=== PATIENT | male | born 1950 | race Caucasian/White ===

== ENCOUNTER → 2016-08-04 | Outpatient (CLI) | payer MEDICARE, BC | LOC: MW.CHFP 08:00 | PROVIDERS: ATTEND Student in an Organized Health Care Education/Training Program | DX: Z51.81 Encounter for therapeutic drug level monitoring (principal); Z79.01 Long term (current) use of anticoagulants; I82.409 Acute embolism and thrombosis of unspecified deep veins of unspecified lower extremity | CPT/HCPCS: 85610; 99211 ==

== ENCOUNTER → 2016-08-20 | Outpatient (CLI) | payer MEDICARE, BC | LOC: MW.CHFP 08:00 | PROVIDERS: ATTEND Student in an Organized Health Care Education/Training Program | DX: Z51.81 Encounter for therapeutic drug level monitoring (principal); Z79.01 Long term (current) use of anticoagulants; I82.91 Chronic embolism and thrombosis of unspecified vein | CPT/HCPCS: 85610; 99211 ==

== ENCOUNTER → 2016-09-24 | Outpatient (CLI) | payer MEDICARE, BC | LOC: MW.CHFP 08:00 | PROVIDERS: ATTEND Student in an Organized Health Care Education/Training Program | DX: Z51.81 Encounter for therapeutic drug level monitoring (principal); Z79.01 Long term (current) use of anticoagulants; I82.409 Acute embolism and thrombosis of unspecified deep veins of unspecified lower extremity | CPT/HCPCS: 85610; 99211 ==

== ENCOUNTER → 2016-10-09 | Outpatient (CLI) | payer MEDICARE, BC | LOC: MW.CHIM 08:00 | PROVIDERS: ATTEND Internal Medicine | DX: N18.9 Chronic kidney disease, unspecified (principal); C85.10 Unspecified B-cell lymphoma, unspecified site; K21.9 Gastro-esophageal reflux disease without esophagitis | CPT/HCPCS: 99214 ==

== ENCOUNTER → 2016-10-22 | Outpatient (CLI) | payer MEDICARE, BC | LOC: MW.CHFP 08:00 | PROVIDERS: ATTEND Student in an Organized Health Care Education/Training Program | DX: Z51.81 Encounter for therapeutic drug level monitoring (principal); Z79.01 Long term (current) use of anticoagulants; I82.409 Acute embolism and thrombosis of unspecified deep veins of unspecified lower extremity | CPT/HCPCS: 85610; 99211 ==

== ENCOUNTER 2017-03-02 18:10 | Inpatient (IN) | payer MEDICARE, BC ==
[2017-03-02] MEDS ORDERED: Sodium Chloride 0.9% 2.5 ML Syringe FLUSH PRN (18:36)
[2017-03-02] MEDS ORDERED: Sodium Chloride 0.9% 10 ML Syringe FLUSH PRN (18:36)
[2017-03-02] MEDS ORDERED: Levofloxacin/Dextrose 5%-Water 500 MG in Premix Bag 1 BAG IV ONE (18:37)
--- NOTE | 2017-03-02 18:43 | EDM.PDOC ---
ED HPI GENERAL MEDICAL PROBLEM - General Chief Complaint: Respiratory Problem Stated Complaint: PNEUMONIA Time Seen by Provider: 03/02/17 18:23 - History of Present Illness INITIAL COMMENTS - FREE TEXT/NARRATIVE: HISTORY AND PHYSICAL: History of present illness: The patient is a 67-year-old male who was seen in our clinic earlier for several days to one week of cough occasionally productive of phlegm and generalized malaise. The patient was noted to be hypoxic in the clinic and was sent for a chest x-ray and was called at home to say that he needed to come back for admission. The patient thought he was going to be a direct admission but there was no information regarding that from his provider. He presents to the ER for evaluation and admission for his pneumonia. The patient denies any chest pain and no shortness of breath but says he feels well eyes malaise and generalized weakness. He did not note that he had a high fever at home and has had no abdominal pain vomiting or diarrhea. Patient has no pulmonary history and never smoked. 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 Review of systems: As per history of present illness and below otherwise all systems reviewed and negative. Past medical history: As per history of present illness and as reviewed below otherwise noncontributory. Surgical history: As per history of present illness and as reviewed below otherwise noncontributory. Social history: No reported history of drug or alcohol abuse. Family history: As per history of present illness and as reviewed below otherwise noncontributory. Physical exam: Gen.: Well-developed well-nourished man was not breathless on evaluation and his O2 sat on room air is noted by me. He overall looks drained but is nontoxic HEENT: Atraumatic, normocephalic, negative for conjunctival pallor or scleral icterus, mucous membranes moist, throat clear, neck supple, nontender, trachea midline. Lungs: Clear to auscultation except for the bases bilaterally with there are coarse breath sounds in the left base there is diminished air exchange and rhonchi and coarse breath sounds, there is no worker breathing, breath sounds equal bilaterally, chest nontender. Heart: S1S2, regular rate and rhythm no overt murmurs Abdomen: Soft, nondistended, nontender. NABS Skin: Normal turgor no evidence of any diaphoresis rashes or lesions seen overtly Genitourinary: Deferred. Rectal: Deferred. Extremities: Atraumatic, negative for cords or calf pain. Neurovascular unremarkable. No pedal edema Neuro: Awake, alert, oriented. Cranial nerves II through XII unremarkable. Cerebellum unremarkable. Motor and sensory unremarkable throughout. Exam nonfocal. Diagnostics: CBC CMP INR lactic acid blood cultures 2 Chest x-ray was performed as an outpatient from the clinic and revealed a left lower lobe pneumonia Therapeutics: Oxygen therapy, IV Levaquin and Zosyn 1830: Case was discussed with Dr. Ashby and Dr. Brennan, the latter of whom is in the ER seeing the patient with me. They were unaware of this patient as a direct admission but they accept him for admission now. They request the antibiotics as given above. They will follow up the blood testing and patient is aware of x-ray results and need for admission. Impression: Left lower lobe pneumonia Definitive disposition and diagnosis as appropriate pending reevaluation and review of above. - Related Data Allergies Allergy/AdvReac Type Severity Reaction Status Date / Time No Known Allergies Allergy Verified 03/02/17 18:20 Home Meds: Home Meds Acetaminophen [Pain Relief] 500 mg PO TID PRN 10/16/13 [History] Acyclovir 400 mg PO BID 10/16/13 [History] Magnesium Oxide 400 mg PO QID 10/16/13 [History] Mometasone Furoate [Nasonex [place]] 1 spray INH DAILY PRN 10/16/13 [History] Montelukast [Singulair] 10 mg PO DAILY 10/16/13 [History] Pregabalin [Lyrica] 200 mg PO BID 10/16/13 [History] Lenalidomide [Revlimid] 15 mg PO DAILY 05/26/14 [History] Omeprazole [priLOSEC OTC] 20 mg PO BEDTIME 05/26/14 [History] Warfarin [Coumadin] 5 mg PO DAILY 05/26/14 [History] Sodium Bicarbonate 325 mg PO BID 04/24/16 [History] Past Medical History HEENT History: Reports: Impaired Vision Respiratory History: Reports: Pneumonia, Recurrent Gastrointestinal History: Reports: GERD Immunologic History: Reports: Immunosuppression Oncologic (Cancer) History: Reports: Non-Hodgkin's Lymphoma - Past Surgical History Male Surgical History: Reports: Nephrectomy, Other (See Below) Other Male Surgeries/Procedures: Shunt for Dialysis to Left Arm Social & Family History - Family History Family Medical History: Noncontributory - Tobacco Use Smoking Status *Q: Never Smoker Second Hand Smoke Exposure: Yes - Caffeine Use Caffeine Use: Reports: Tea - Alcohol Use Days Per Week of Alcohol Use: 0 - Recreational Drug Use Recreational Drug Use: No ED ROS GENERAL - Review of Systems Review Of Systems: ROS reveals no pertinent complaints other than HPI. ED EXAM, GENERAL - Physical Exam Exam: See Below (see dictation) Course - Vital Signs Last Recorded V/S: Last Vital Signs Temp 36.8 C 03/02/17 18:16 Pulse 83 03/02/17 18:16 Resp 25 H 03/02/17 18:16 BP 130/62 03/02/17 18:16 Pulse Ox 87 L 03/02/17 18:16 - Orders/Labs/Meds Orders: Active Orders 24 hr Category Date Time Status Patient Status [ADT] Stat ADT 03/02/17 18:37 Ordered Oxygen Therapy, ED [RC] ASDIRECTED Care 03/02/17 18:35 Ordered CBC WITH AUTO DIFF [HEME] Stat Lab 03/02/17 18:36 Ordered COMPREHENSIVE METABOLIC PN,CMP [CHEM] Stat Lab 03/02/17 18:36 Ordered CULTURE BLOOD [BC] Stat Lab 03/02/17 18:36 Ordered CULTURE BLOOD [BC] Stat Lab 03/02/17 18:36 Ordered INR,PT,PROTHROMBIN TIME [COAG] Stat Lab 03/02/17 18:36 Ordered LACTIC ACID,WHOLE BLOOD [BG] Stat Lab 03/02/17 18:36 Ordered Levofloxacin/Dextrose 5%-Water [Levaquin in D5W 500 MG/ Med 03/02/17 18:37 Ordered 100 ML] 500 mg Premix Bag 1 bag IV ONETIME Piperacillin/Tazobactam [Piperacil-Tazobact] 3.375 gm Med 03/02/17 18:37 Ordered Sodium Chloride 0.9% [Normal Saline] 50 ml IV ONETIME Sodium Chloride 0.9% [Saline Flush] Med 03/02/17 18:36 Ordered 10 ml FLUSH ASDIRECTED PRN Sodium Chloride 0.9% [Saline Flush] Med 03/02/17 18:36 Ordered 2.5 ml FLUSH ASDIRECTED PRN Blood Culture x2 Reflex Set [OM.PC] Stat Oth 03/02/17 18:36 Ordered Saline Lock Insert [OM.PC] Stat Oth 03/02/17 18:35 Ordered Medication Orders Sodium Chloride (Saline Flush) 10 ml FLUSH ASDIRECTED PRN PRN Reason: Keep Vein Open Sodium Chloride (Saline Flush) 2.5 ml FLUSH ASDIRECTED PRN PRN Reason: Keep Vein Open Meds: Medications Generic Name Dose Route Start Last Admin Trade Name Freq PRN Reason Stop Dose Admin Sodium Chloride 10 ml 03/02/17 18:36 Saline Flush FLUSH ASDIRECTED PRN Keep Vein Open Sodium Chloride 2.5 ml 03/02/17 18:36 Saline Flush FLUSH ASDIRECTED PRN Keep Vein Open Departure - Departure Time of Disposition: 18:43 Disposition: Admitted As Inpatient 64 Condition: Good Clinical Impression: Pneumonia Qualifiers: Pneumonia type: due to unspecified organism Laterality: left Lung location: lower lobe of lung Qualified Code(s): J18.1 - Lobar pneumonia, unspecified organism - Discharge Information - My Orders Last 24 Hours: My Active Orders 03/02/17 18:35 Oxygen Therapy, ED [RC] ASDIRECTED Saline Lock Insert [OM.PC] Stat 03/02/17 18:36 CBC WITH AUTO DIFF [HEME] Stat COMPREHENSIVE METABOLIC PN,CMP [CHEM] Stat CULTURE BLOOD [BC] Stat CULTURE BLOOD [BC] Stat INR,PT,PROTHROMBIN TIME [COAG] Stat LACTIC ACID,WHOLE BLOOD [BG] Stat Sodium Chloride 0.9% [Saline Flush] 10 ml FLUSH ASDIRECTED PRN Sodium Chloride 0.9% [Saline Flush] 2.5 ml FLUSH ASDIRECTED PRN Blood Culture x2 Reflex Set [OM.PC] Stat 03/02/17 18:37 Patient Status [ADT] Stat Levofloxacin/Dextrose 5%-Water [Levaquin in D5W 500 MG/100 ML] 500 mg Premix Bag 1 bag IV ONETIME Piperacillin/Tazobactam [Piperacil-Tazobact] 3.375 gm Sodium Chloride 0.9% [ Normal Saline] 50 ml IV ONETIME - Assessment/Plan Last 24 Hours: My Active Orders 03/02/17 18:35 Oxygen Therapy, ED [RC] ASDIRECTED Saline Lock Insert [OM.PC] Stat 03/02/17 18:36 CBC WITH AUTO DIFF [HEME] Stat COMPREHENSIVE METABOLIC PN,CMP [CHEM] Stat CULTURE BLOOD [BC] Stat CULTURE BLOOD [BC] Stat INR,PT,PROTHROMBIN TIME [COAG] Stat LACTIC ACID,WHOLE BLOOD [BG] Stat Sodium Chloride 0.9% [Saline Flush] 10 ml FLUSH ASDIRECTED PRN Sodium Chloride 0.9% [Saline Flush] 2.5 ml FLUSH ASDIRECTED PRN Blood Culture x2 Reflex Set [OM.PC] Stat 03/02/17 18:37 Patient Status [ADT] Stat Levofloxacin/Dextrose 5%-Water [Levaquin in D5W 500 MG/100 ML] 500 mg Premix Bag 1 bag IV ONETIME Piperacillin/Tazobactam [Piperacil-Tazobact] 3.375 gm Sodium Chloride 0.9% [ Normal Saline] 50 ml IV ONETIME
--- NOTE | 2017-03-02 19:44 | PCM.HP ---
H&P History of Present Illness - General Date of Service: 03/02/17 Admit Problem/Dx: Admission Diagnosis/Problem Admission Diagnosis/Problem Pneumonia Source of Information: Patient, Family - History of Present Illness Initial Comments - Free Text/Narative: 67 yo male with history of NHL, stem cell transplant, DVT on Coumadin, CKD and Immunocomprimised state secondary to Lenalidomide is admitted for CAP. is at bedside here in ED providing much of the history. For the past week patient has been experiencing fatigue, malaise, weakness, sob, productive cough, sore throat and sinus congestion. Symptoms progressively worsened. He had appointment with his PCP Dr. Acosta earlier today and was found to be hypoxic with O2 sat 83%. CXR revealed Left sided infiltrate. Patient was then transferred to ED for additional work-up. Patient denies any fever, lethargy, nausea, vomiting, diarrhea, oliguria, hematuria, tremors, swelling, chest pain, pleuritis or calf pain. He denies tobacco use and uses alcohol rarely. ED Course: -CBC, CMP, INR, Blood Cultures -Zosyn IV x1, Levaquin IV x1 - Related Data Allergies/Adverse Reactions: Allergies Allergy/AdvReac Type Severity Reaction Status Date / Time No Known Allergies Allergy Verified 03/02/17 18:20 Home Medications: Home Meds Acetaminophen [Pain Relief] 500 mg PO TID PRN 10/16/13 [History] Acyclovir 400 mg PO BID 10/16/13 [History] Magnesium Oxide 400 mg PO QID 10/16/13 [History] Mometasone Furoate [Nasonex [place]] 1 spray INH DAILY PRN 10/16/13 [History] Montelukast [Singulair] 10 mg PO DAILY 10/16/13 [History] Pregabalin [Lyrica] 200 mg PO BID 10/16/13 [History] Lenalidomide [Revlimid] 10 mg PO DAILY 05/26/14 [History] Omeprazole [priLOSEC OTC] 20 mg PO DAILY 05/26/14 [History] Warfarin [Coumadin] 5 mg PO ASDIRECTED 05/26/14 [History] Sodium Bicarbonate 325 mg PO ASDIRECTED 04/24/16 [History] Calcitriol 1 cap PO ASDIRECTED 03/02/17 [History] Cholecalciferol (Vitamin D3) [Vitamin D3] 03/02/17 [History] Fluticasone Propionate [Flonase] 1 spray NASBOTH BID PRN 03/02/17 [History] Loratadine 10 mg PO DAILY 03/02/17 [History] Past Medical History HEENT History: Reports: Impaired Vision Respiratory History: Reports: Pneumonia, Recurrent Gastrointestinal History: Reports: GERD Immunologic History: Reports: Immunosuppression Oncologic (Cancer) History: Reports: Non-Hodgkin's Lymphoma - Past Surgical History Male Surgical History: Reports: Nephrectomy, Other (See Below) Other Male Surgeries/Procedures: Shunt for Dialysis to Left Arm Social & Family History - Family History Family Medical History: Noncontributory - Tobacco Use Smoking Status *Q: Never Smoker Second Hand Smoke Exposure: Yes - Caffeine Use Caffeine Use: Reports: Tea - Alcohol Use Days Per Week of Alcohol Use: 0 - Recreational Drug Use Recreational Drug Use: No H&P Review of Systems - Review of Systems: Review Of Systems: See Below General: Reports: Malaise, Weakness, Fatigue. Denies: Fever, Chills, Night Sweats, Diaphoresis, Decreased Appetite HEENT: Reports: Sinus Congestion, Sore Throat Pulmonary: Reports: Shortness of Breath, Cough, Sputum. Denies: Hemoptysis Cardiovascular: Reports: Dyspnea on Exertion Gastrointestinal: Reports: No Symptoms Genitourinary: Reports: No Symptoms Musculoskeletal: Reports: No Symptoms Skin: Reports: No Symptoms Psychiatric: Reports: No Symptoms Neurological: Reports: No Symptoms Hematologic/Lymphatic: Reports: Anemia Exam - Exam Exam: See Below - Vital Signs Vital Signs: Last Vital Signs Temp 36.8 C 03/02/17 18:16 Pulse 83 03/02/17 18:16 Resp 25 H 03/02/17 18:16 BP 130/62 03/02/17 18:16 Pulse Ox 87 L 03/02/17 18:16 Weight: 90 kg - Exam Quality Assessment: Supplemental Oxygen General: Alert, Oriented, Cooperative HEENT: Conjunctiva Clear, EACs Clear, EOMI, Mucosa Moist & [place], Nares Patent, Normal Nasal Septum, Posterior Pharynx Clear, Pupils Equal, Pupils Reactive Neck: Supple, Trachea Midline, +2 Carotid Pulse wo Bruit Lungs: Decreased Breath Sounds (assymetric, diminished left lower lobe) Cardiovascular: Regular Rate, Regular Rhythm GI/Abdominal Exam: Normal Bowel Sounds, Soft, Non-Tender Extremities: Non-Tender, No Pedal Edema. No: Leg Pain Skin: Intact Neuro Extensive - Mental Status: Alert, Oriented x3 - Patient Data Lab Results Last 24 hrs: Laboratory Results - last 24 hr 03/02/17 03/02/17 03/02/17 Range/Units 19:16 19:16 19:16 WBC 1.47 L (4.0-11.0) K/uL RBC 2.30 L (4.50-5.90) M/uL Hgb 7.5 L (13.0-17.0) g/dL Hct 22.7 L (38.0-50.0) % MCV 98.7 H (80.0-98.0) fL MCH 32.6 H (27.0-32.0) pg MCHC 33.0 (31.0-37.0) g/dL RDW Std Deviation 59.4 (28.0-62.0) fl RDW Coeff of [place] 17 H (11.0-15.0) % Plt Count 88 L (150-400) K/uL MPV 13.10 H (7.40-12.00) fL Add Manual Diff YES Nucleated RBC % 0.0 /100WBC Nucleated RBCs # 0 K/uL INR 2.05 H (0.86-1.11) Lactate 0.6 (0.20-2.00) mmol/L Result Diagrams: 03/02/17 19:16 03/02/17 19:16 *Q Meaningful Use (ADM) - VTE *Q VTE Criteria *Q: - Stroke *Q Stroke Criteria *Q: - AMI *Q AMI Criteria *Q: Problem List Initiated/Reviewed/Updated: Yes Orders Last 24hrs: Active Orders 24 hr Category Date Time Status Implanted Port Access [RC] QSHIFT Care 03/02/17 18:44 Active Medication Orders Sodium Chloride (Saline Flush) 10 ml FLUSH ASDIRECTED PRN PRN Reason: Keep Vein Open Sodium Chloride (Saline Flush) 2.5 ml FLUSH ASDIRECTED PRN PRN Reason: Keep Vein Open Assessment/Plan Comment:: 67 yo male with history of NHL, stem cell transplant, DVT on Coumadin, CKD and Immunocomprimised state secondary to Lenalidomide is admitted for CAP & Hypoxia. CXR in clinic today revealed left sided infiltrate. ED workup revealed Pancytopenia with Hb 7.5, WBC 1470, ANC 790 & Platelet count 88k, Ck 4.6 & INR 2.05. Patient was given one dose each of Zosyn and Levaquin in ED. 1. CAP: continue Levaquin & Zosyn. start Vancomycin. obtain sputum cultures. f/ u blood cultures 2. Hypoxia: O2 via LFNC 3. Anemia: likely secondary to ACD. transfuse 2 units RBC. monitor Hb. 4. CKD: Current Ck of 4.6 is patients baseline. continue to monitor. 5. DVT: resume Coumadin once bleed is rule out. 6. Neutopenia: No fever therefore will just continue to monitor. 7. Thrombocytopenia: monitor.
[2017-03-02] MEDS ORDERED: Levofloxacin/Dextrose 5%-Water 750 MG in Premix Bag 1 BAG IV SCH ×2 (20:15→20:30)
[2017-03-02] MEDS ORDERED: Piperacillin/Tazobactam 3.375 GM in Sodium Chloride 0.9% 50 ML IV SCH (20:15)
[2017-03-02] MEDS ORDERED: Vancomycin 1.5 GM in Sodium Chloride 0.9% 500 ML IV ONE (22:00)
[2017-03-02] MEDS: Piperacillin/Tazobactam 3.375 GM in Sodium Chloride 0.9% 50 ML IV ONE ×2 (22:26→22:31)
[2017-03-02] MEDS ORDERED: Levofloxacin/Dextrose 5%-Water 50 ML IV ONE (22:30)
[2017-03-03] MEDS: Piperacillin/Tazobactam 2.25 GM in Sodium Chloride 0.9% 50 ML IV SCH ×3 (05:33→21:12)
--- NOTE | 2017-03-03 12:23 | PCM.PN ---
- General Info Date of Service: 03/03/17 Admission Dx/Problem (Free Text): Admission Diagnosis/Problem Admission Diagnosis/Problem Pneumonia Subjective Update: Patient doing well. No overnight fever. He would like to be discharged. Functional Status: Reports: Pain Controlled, Tolerating Diet, Urinating - Review of Systems General: Reports: No Symptoms HEENT: Reports: No Symptoms Pulmonary: Reports: Shortness of Breath Cardiovascular: Reports: No Symptoms Gastrointestinal: Reports: No Symptoms Genitourinary: Reports: No Symptoms Musculoskeletal: Reports: No Symptoms Skin: Reports: No Symptoms Neurological: Reports: No Symptoms Psychiatric: Reports: No Symptoms - Patient Data Vitals - Most Recent: Last Vital Signs Temp 36.9 C 03/03/17 09:38 Pulse 70 03/03/17 09:38 Resp 20 03/03/17 09:38 BP 133/65 03/03/17 09:38 Pulse Ox 92 L 03/03/17 09:38 Weight - Most Recent: 90 kg I&O - Last 24 Hours: Intake & Output 03/02/17 03/03/17 03/03/17 22:59 06:59 14:59 Intake Total 1250 322 Output Total 650 Balance 600 322 Lab Results Last 24 Hours: Laboratory Results - last 24 hr 03/02/17 03/02/17 03/02/17 Range/Units 19:16 19:16 19:16 WBC 1.47 L (4.0-11.0) K/uL RBC 2.30 L (4.50-5.90) M/uL Hgb 7.5 L (13.0-17.0) g/dL Hct 22.7 L (38.0-50.0) % MCV 98.7 H (80.0-98.0) fL MCH 32.6 H (27.0-32.0) pg MCHC 33.0 (31.0-37.0) g/dL RDW Std Deviation 59.4 (28.0-62.0) fl RDW Coeff of [place] 17 H (11.0-15.0) % Plt Count 88 L (150-400) K/uL MPV 13.10 H (7.40-12.00) fL Add Manual Diff YES Neutrophils % (Manual) 54 (48.0-80.0) % Band Neutrophils % 7 % Lymphocytes % (Manual) 10 L (16.0-40.0) % Monocytes % (Manual) 20 H (0.0-15.0) % Eosinophils % (Manual) 8 H (0.0-7.0) % Basophils % (Manual) 1 (0.0-1.5) % Nucleated RBC % 0.0 /100WBC Absolute Seg Neuts 0.8 Band Neutrophils # 0.1 Lymphocytes # (Manual) 0.1 Monocytes # (Manual) 0.3 Eosinophils # (Manual) 0.1 Basophils # (Manual) 0 Nucleated RBCs # 0 K/uL INR 2.05 H (0.86-1.11) Lactate 0.6 (0.20-2.00) mmol/L Sodium (136-146) mmol/L Potassium (3.5-5.1) mmol/L Chloride (98-110) mmol/L Carbon Dioxide (21-31) mmol/L BUN (6.0-23.0) mg/dL Creatinine (0.6-1.5) mg/dL Est Cr Clr Drug Dosing mL/min Estimated GFR (MDRD) ml/min Glucose (60-110) mg/dL Calcium (8.8-10.8) mg/dL Total Bilirubin (0.1-1.5) mg/dL AST (5-40) IU/L ALT (8-54) IU/L Alkaline Phosphatase (40-150) Total Protein (6.0-8.0) g/dL Albumin (3.4-4.8) g/dL Globulin (2.0-3.5) g/dL Albumin/Globulin Ratio (1.3-2.8) Blood Type Antibody Screen Crossmatch 03/02/17 03/02/17 03/03/17 Range/Units 19:16 19:34 10:40 WBC 1.39 L (4.0-11.0) K/uL RBC 2.92 L (4.50-5.90) M/uL Hgb 9.0 L (13.0-17.0) g/dL Hct 27.6 L (38.0-50.0) % MCV 94.5 (80.0-98.0) fL MCH 30.8 (27.0-32.0) pg MCHC 32.6 (31.0-37.0) g/dL RDW Std Deviation 64.2 H (28.0-62.0) fl RDW Coeff of [place] 19 H (11.0-15.0) % Plt Count 73 L (150-400) K/uL MPV 13.30 H (7.40-12.00) fL Add Manual Diff YES Neutrophils % (Manual) 47 L (48.0-80.0) % Band Neutrophils % 13 % Lymphocytes % (Manual) 13 L (16.0-40.0) % Monocytes % (Manual) 23 H (0.0-15.0) % Eosinophils % (Manual) 2 (0.0-7.0) % Basophils % (Manual) 2 H (0.0-1.5) % Nucleated RBC % 0.0 /100WBC Absolute Seg Neuts 0.7 Band Neutrophils # 0.2 Lymphocytes # (Manual) 0.2 Monocytes # (Manual) 0.3 Eosinophils # (Manual) 0 Basophils # (Manual) 0 Nucleated RBCs # 0 K/uL INR (0.86-1.11) Lactate (0.20-2.00) mmol/L Sodium 139 (136-146) mmol/L Potassium 4.2 (3.5-5.1) mmol/L Chloride 109 (98-110) mmol/L Carbon Dioxide 22 (21-31) mmol/L BUN 42 H (6.0-23.0) mg/dL Creatinine 4.6 H (0.6-1.5) mg/dL Est Cr Clr Drug Dosing 13.68 mL/min Estimated GFR (MDRD) 12.7 ml/min Glucose 121 H (60-110) mg/dL Calcium 8.6 L (8.8-10.8) mg/dL Total Bilirubin 0.8 (0.1-1.5) mg/dL AST 38 (5-40) IU/L ALT 55 H (8-54) IU/L Alkaline Phosphatase 127 (40-150) Total Protein 6.5 (6.0-8.0) g/dL Albumin 3.2 L (3.4-4.8) g/dL Globulin 3.3 (2.0-3.5) g/dL Albumin/Globulin Ratio 1.0 L (1.3-2.8) Blood Type A NEGATIVE Antibody Screen NEGATIVE Crossmatch See Detail 03/03/17 Range/Units 10:40 WBC (4.0-11.0) K/uL RBC (4.50-5.90) M/uL Hgb (13.0-17.0) g/dL Hct (38.0-50.0) % MCV (80.0-98.0) fL MCH (27.0-32.0) pg MCHC (31.0-37.0) g/dL RDW Std Deviation (28.0-62.0) fl RDW Coeff of [place] (11.0-15.0) % Plt Count (150-400) K/uL MPV (7.40-12.00) fL Add Manual Diff Neutrophils % (Manual) (48.0-80.0) % Band Neutrophils % % Lymphocytes % (Manual) (16.0-40.0) % Monocytes % (Manual) (0.0-15.0) % Eosinophils % (Manual) (0.0-7.0) % Basophils % (Manual) (0.0-1.5) % Nucleated RBC % /100WBC Absolute Seg Neuts Band Neutrophils # Lymphocytes # (Manual) Monocytes # (Manual) Eosinophils # (Manual) Basophils # (Manual) Nucleated RBCs # K/uL INR (0.86-1.11) Lactate (0.20-2.00) mmol/L Sodium 140 (136-146) mmol/L Potassium 4.5 (3.5-5.1) mmol/L Chloride 112 H (98-110) mmol/L Carbon Dioxide 19 L (21-31) mmol/L BUN 41 H (6.0-23.0) mg/dL Creatinine 4.2 H (0.6-1.5) mg/dL Est Cr Clr Drug Dosing 15.06 mL/min Estimated GFR (MDRD) 14.1 ml/min Glucose 143 H (60-110) mg/dL Calcium 8.6 L (8.8-10.8) mg/dL Total Bilirubin (0.1-1.5) mg/dL AST (5-40) IU/L ALT (8-54) IU/L Alkaline Phosphatase (40-150) Total Protein (6.0-8.0) g/dL Albumin (3.4-4.8) g/dL Globulin (2.0-3.5) g/dL Albumin/Globulin Ratio (1.3-2.8) Blood Type Antibody Screen Crossmatch Med Orders - Current: Current Medications Piperacillin Sod/Tazobactam (Sod 2.25 gm/ Sodium Chloride) 50 mls @ 100 mls/hr IV Q8H [facility] [place] Last Admin: 03/03/17 05:33 Dose: 100 mls/hr Levofloxacin/Dextrose 500 mg/ (Premix) 100 mls @ 100 mls/hr IV Q48H [facility] [place] Sodium Chloride (Saline Flush) 10 ml FLUSH ASDIRECTED PRN PRN Reason: Keep Vein Open Sodium Chloride (Saline Flush) 2.5 ml FLUSH ASDIRECTED PRN PRN Reason: Keep Vein Open Vancomycin HCl (Pharmacy To Dose - Vancomycin) 1 dose .XX ASDIRECTED JAYRO Discontinued Medications Levofloxacin/Dextrose 500 mg/ (Premix) 100 mls @ 100 mls/hr IV ONETIME ONE Stop: 03/02/17 19:36 Last Admin: 03/02/17 19:45 Dose: 100 mls/hr Piperacillin Sod/Tazobactam (Sod 3.375 gm/ Sodium Chloride) 50 mls @ 100 mls/ hr IV ONETIME ONE Stop: 03/02/17 19:06 Last Admin: 03/02/17 22:31 Dose: 100 mls/hr Piperacillin Sod/Tazobactam (Sod 3.375 gm/ Sodium Chloride) 50 mls @ 100 mls/ hr IV Q6H [facility] [place] Last Admin: 03/03/17 03:25 Dose: Not Given Vancomycin HCl 1.5 gm/ Sodium (Chloride) 500 mls @ 333.333 mls/hr IV ONETIME ONE Stop: 03/02/17 23:29 Last Admin: 03/03/17 00:15 Dose: 333.333 mls/hr Levofloxacin/Dextrose 750 mg/ (Premix) 150 mls @ 100 mls/hr IV Q48H [facility] [place] Last Admin: 03/03/17 03:25 Dose: Not Given Levofloxacin/Dextrose (Levaquin In D5w 250 Mg/50 Ml) 50 mls @ 100 mls/hr IV ONETIME ONE Stop: 03/02/17 22:59 Last Admin: 03/02/17 23:34 Dose: 100 mls/hr - Exam General: Alert, Oriented, No Acute Distress Neck: Supple, No JVD Lungs: Decreased Breath Sounds, Crackles GI/Abdominal Exam: Normal Bowel Sounds Extremities: Normal Inspection, No Pedal Edema Neurological: No New Focal Deficit - Problem List Review Problem List Initiated/Reviewed/Updated: Yes - Plan Plan:: 67 yo male with history of NHL, stem cell transplant, DVT on Coumadin, CKD and Immunocomprimised state secondary to Lenalidomide is admitted for CAP & Hypoxia. Currently being transfused 2nd unit of rbc. Morning labs to be obtained after completion of transfusion. Explained to patient importance of remaining in hospital due to immunocomprimised state. 1. CAP: continue Levaquin/Zosyn/Vancomycin. obtain sputum cultures. f/u blood cultures 2. Hypoxia: improved. on RA 3. Anemia: likely secondary to ACD. check Hb after transfusion. 4. CKD: Current Ck of 4.6 is patients baseline. continue to monitor. 5. DVT: obtain stool sample to r/o bleed. begin home coumadin dose 6. Neutopenia: No fever therefore will just continue to monitor. 7. Thrombocytopenia: monitor.
[2017-03-03] MEDS ORDERED: FLU Vacc QS 2017-18 (36mos UP)/PF 60 MCG/0.5 ML Syringe IM ONE (15:30)
[2017-03-03] MEDS ORDERED: Codeine/guaiFENesin 100-10 MG/5 ML Syrup 5 ML Cup PO PRN (20:21)
[2017-03-03] MEDS ORDERED: Codeine/Promethazine 10-6.25 MG/5 ML Syrup 5 ML UD Cup PO PRN (21:56)
[2017-03-04] MEDS ORDERED: Codeine/Promethazine 10-6.25 MG/5 ML Syrup 5 ML UD Cup PO PRN (01:58)
[2017-03-04] MEDS: Piperacillin/Tazobactam 2.25 GM in Sodium Chloride 0.9% 50 ML IV SCH (05:23)
--- NOTE | 2017-03-04 08:40 | PCM.DCSUM1 ---
<Baluch,Cornelius - Last Filed: 03/04/17 09:51> Discharge Summary - Hospital Course Free Text/Narrative:: 67 yo male with history of NHL, stem cell transplant, DVT on Coumadin, CKD and Immunocomprimised state secondary to Lenalidomide was admitted 03/02/17 for CAP and hypoxia. He was found to be pancytopenic and neutropenic. His hb was found to be 7.5 for which he was transfused 2 units of RBC. He was treated with Vancomycin/Levaquin/Zosyn. His Coumadin was held until acute bleed was ruled out. He improved rapidly. His hypoxia resolved by day 2 and he did not need any further supplemental O2. He had no fever during his stay. On day 3 he insisted to be discharged from the hospital because he was feeling well. His lung sounds were improved and there war air entry to the left lower region which was poor at admission. Due to his medical history we recommended he stay at least one more day for iv antibiotics but he insisted on discharge. His blood cultures had no growth. spаннаtum gram stain revealed gram positive cocci in chains and pairs. He was discharged home on Augmentin 875 BID for 7 days to total 10 days of antibiotic therapy. He was also prescribed albuterol inhaler to use [id number] PRN SOB due to wheezing on exam. F/u was arranged with his PCP. He has appointment with hematology on 03/18/17. He was told to wear a mask in public. - Discharge Data Discharge Date: 03/04/17 Discharge Disposition: Home, Self-Care 01 Condition: Good - Patient Instructions Diet: Regular Diet as Tolerated Activity: As Tolerated Showering/Bathing: May Shower Notify Provider of: Fever, Increased Pain, Swelling and Redness, Drainage, Nausea and/or Vomiting - Discharge Plan Prescriptions/Med Rec: Albuterol [IJD: Albuterol HFA] 2 puff .XX QID PRN #1 inhaler PRN Reason: Shortness Of Breath Amoxicillin/Potassium Clav [Augmentin 875-125 Tablet] 1 each PO BID 7 Days #14 tablet Home Medications: Home Meds Acetaminophen [Pain Relief] 500 mg PO TID PRN 10/16/13 [History] Acyclovir 400 mg PO BID 10/16/13 [History] Magnesium Oxide 400 mg PO QID 10/16/13 [History] Montelukast [Singulair] 10 mg PO DAILY 10/16/13 [History] Pregabalin [Lyrica] 200 mg PO BID 10/16/13 [History] Lenalidomide [Revlimid] 10 mg PO DAILY 05/26/14 [History] Omeprazole [priLOSEC OTC] 20 mg PO DAILY 05/26/14 [History] Warfarin [Coumadin] 5 mg PO SUTUTHSA@2100 05/26/14 [History] Calcitriol 0.25 mcg PO Q2D@0900 03/02/17 [History] Cholecalciferol (Vitamin D3) [Vitamin D3] 2,000 unit PO DAILY 03/02/17 [History] Fluticasone Propionate [Flonase] 2 sprays NASBOTH DAILY PRN 03/02/17 [History] Loratadine 10 mg PO DAILY PRN 03/02/17 [History] Sodium Bicarbonate 1,300 mg PO TIDMEALS 03/03/17 [History] Sodium Bicarbonate 650 mg PO BEDTIME 03/03/17 [History] Warfarin [Coumadin] 2.5 mg PO MOWEFR@2100 03/03/17 [History] Albuterol [IJD: Albuterol HFA] 2 puff .XX QID PRN #1 inhaler 03/04/17 [Rx] Amoxicillin/Potassium Clav [Augmentin 875-125 Tablet] 1 each PO BID 7 Days #14 tablet 03/04/17 [Rx] Patient Handouts: Amoxicillin; Clavulanic Acid tablets, Community-Acquired Pneumonia, Adult, [id number] Referrals: Ubaldo Acosta MD [Physician] - 03/05/17 10:00 am - Patient Data Vitals - Most Recent: Last Vital Signs Temp 37.7 C 03/04/17 04:00 Pulse 74 03/04/17 04:00 Resp 20 03/04/17 04:00 BP 118/59 L 03/04/17 04:00 Pulse Ox 90 L 03/04/17 04:00 Weight - Most Recent: 90 kg I&O - Last 24 hours: Intake & Output 03/03/17 03/04/17 03/04/17 22:59 06:59 14:59 Intake Total 1150 820 Output Total 480 540 Balance 670 280 Lab Results - Last 24 hrs: Laboratory Results - last 24 hr 03/02/17 03/03/17 03/03/17 Range/Units 19:34 10:40 10:40 WBC 1.39 L (4.0-11.0) K/uL RBC 2.92 L (4.50-5.90) M/uL Hgb 9.0 L (13.0-17.0) g/dL Hct 27.6 L (38.0-50.0) % MCV 94.5 (80.0-98.0) fL MCH 30.8 (27.0-32.0) pg MCHC 32.6 (31.0-37.0) g/dL RDW Std Deviation 64.2 H (28.0-62.0) fl RDW Coeff of Landry 19 H (11.0-15.0) % Plt Count 73 L (150-400) K/uL MPV 13.30 H (7.40-12.00) fL Add Manual Diff YES Neutrophils % (Manual) 47 L (48.0-80.0) % Band Neutrophils % 13 % Lymphocytes % (Manual) 13 L (16.0-40.0) % Monocytes % (Manual) 23 H (0.0-15.0) % Eosinophils % (Manual) 2 (0.0-7.0) % Basophils % (Manual) 2 H (0.0-1.5) % Nucleated RBC % 0.0 /100WBC Absolute Seg Neuts 0.7 Band Neutrophils # 0.2 Lymphocytes # (Manual) 0.2 Monocytes # (Manual) 0.3 Eosinophils # (Manual) 0 Basophils # (Manual) 0 Nucleated RBCs # 0 K/uL INR (0.86-1.11) Sodium 140 (136-146) mmol/L Potassium 4.5 (3.5-5.1) mmol/L Chloride 112 H (98-110) mmol/L Carbon Dioxide 19 L (21-31) mmol/L BUN 41 H (6.0-23.0) mg/dL Creatinine 4.2 H (0.6-1.5) mg/dL Est Cr Clr Drug Dosing 15.06 mL/min Estimated GFR (MDRD) 14.1 ml/min Glucose 143 H (60-110) mg/dL Calcium 8.6 L (8.8-10.8) mg/dL Random Vancomycin ug/mL Crossmatch See Detail 03/03/17 03/04/17 03/04/17 Range/Units 21:50 05:36 05:36 WBC 1.26 L (4.0-11.0) K/uL RBC 2.85 L (4.50-5.90) M/uL Hgb 8.8 L (13.0-17.0) g/dL Hct 26.9 L (38.0-50.0) % MCV 94.4 (80.0-98.0) fL MCH 30.9 (27.0-32.0) pg MCHC 32.7 (31.0-37.0) g/dL RDW Std Deviation 65.0 H (28.0-62.0) fl RDW Coeff of Landry 19 H (11.0-15.0) % Plt Count 72 L (150-400) K/uL MPV (7.40-12.00) fL Add Manual Diff YES Neutrophils % (Manual) 54 (48.0-80.0) % Band Neutrophils % 7 % Lymphocytes % (Manual) 34 (16.0-40.0) % Monocytes % (Manual) 5 (0.0-15.0) % Eosinophils % (Manual) (0.0-7.0) % Basophils % (Manual) (0.0-1.5) % Nucleated RBC % 0.0 /100WBC Absolute Seg Neuts 0.7 Band Neutrophils # 0.1 Lymphocytes # (Manual) 0.4 Monocytes # (Manual) 0.1 Eosinophils # (Manual) Basophils # (Manual) Nucleated RBCs # 0 K/uL INR (0.86-1.11) Sodium 141 (136-146) mmol/L Potassium 4.1 (3.5-5.1) mmol/L Chloride 113 H (98-110) mmol/L Carbon Dioxide 18 L (21-31) mmol/L BUN 40 H (6.0-23.0) mg/dL Creatinine 4.2 H 4.2 H (0.6-1.5) mg/dL Est Cr Clr Drug Dosing 15.06 15.06 mL/min Estimated GFR (MDRD) 14.1 14.1 ml/min Glucose 116 H (60-110) mg/dL Calcium 8.3 L (8.8-10.8) mg/dL Random Vancomycin 10.8 ug/mL Crossmatch 03/04/17 Range/Units 05:36 WBC (4.0-11.0) K/uL RBC (4.50-5.90) M/uL Hgb (13.0-17.0) g/dL Hct (38.0-50.0) % MCV (80.0-98.0) fL MCH (27.0-32.0) pg MCHC (31.0-37.0) g/dL RDW Std Deviation (28.0-62.0) fl RDW Coeff of Landry (11.0-15.0) % Plt Count (150-400) K/uL MPV (7.40-12.00) fL Add Manual Diff Neutrophils % (Manual) (48.0-80.0) % Band Neutrophils % % Lymphocytes % (Manual) (16.0-40.0) % Monocytes % (Manual) (0.0-15.0) % Eosinophils % (Manual) (0.0-7.0) % Basophils % (Manual) (0.0-1.5) % Nucleated RBC % /100WBC Absolute Seg Neuts Band Neutrophils # Lymphocytes # (Manual) Monocytes # (Manual) Eosinophils # (Manual) Basophils # (Manual) Nucleated RBCs # K/uL INR 1.94 H (0.86-1.11) Sodium (136-146) mmol/L Potassium (3.5-5.1) mmol/L Chloride (98-110) mmol/L Carbon Dioxide (21-31) mmol/L BUN (6.0-23.0) mg/dL Creatinine (0.6-1.5) mg/dL Est Cr Clr Drug Dosing mL/min Estimated GFR (MDRD) ml/min Glucose (60-110) mg/dL Calcium (8.8-10.8) mg/dL Random Vancomycin ug/mL Crossmatch CHRISTINE Results - Last 24 hrs: Microbiology 03/02/17 19:34 Aerobic Blood Culture - Preliminary Blood - Venous - Lab Draw NO GROWTH AFTER 1 DAY Anaerobic Blood Culture - Preliminary NO GROWTH AFTER 1 DAY 03/02/17 19:16 Aerobic Blood Culture - Preliminary Blood - Venous NO GROWTH AFTER 1 DAY Anaerobic Blood Culture - Preliminary NO GROWTH AFTER 1 DAY 03/03/17 16:30 Gram Stain - Preliminary Sputum - Expectorated 03/03/17 16:35 Stool Occult Blood (CHRISTINE) - Final Stool / Feces - Stool, Formed NEGATIVE OCCULT BLOOD Med Orders - Current: Current Medications Piperacillin Sod/Tazobactam (Sod 2.25 gm/ Sodium Chloride) 50 mls @ 100 mls/hr IV Q8H [facility] Last Admin: 03/04/17 05:23 Dose: 100 mls/hr Levofloxacin/Dextrose 500 mg/ (Premix) 100 mls @ 100 mls/hr IV Q48H [facility]RO Vancomycin HCl 1 gm/ Sodium (Chloride) 250 mls @ 166 mls/hr IV Q24H [facility] [place] Last Admin: 03/03/17 23:01 Dose: 166 mls/hr Promethazine HCl/Codeine (Phenergan With Codeine) 5 ml PO Q6H PRN PRN Reason: Cough Last Admin: 03/04/17 04:08 Dose: 5 ml Sodium Chloride (Saline Flush) 10 ml FLUSH ASDIRECTED PRN PRN Reason: Keep Vein Open Sodium Chloride (Saline Flush) 2.5 ml FLUSH ASDIRECTED PRN PRN Reason: Keep Vein Open Vancomycin HCl (Pharmacy To Dose - Vancomycin) 1 dose .XX ASDIRECTED [facility] Discontinued Medications Guaifenesin/Codeine Phosphate (Robitussin Ac) 5 ml PO Q8H PRN PRN Reason: Cough Levofloxacin/Dextrose 500 mg/ (Premix) 100 mls @ 100 mls/hr IV ONETIME ONE Stop: 03/02/17 19:36 Last Admin: 03/02/17 19:45 Dose: 100 mls/hr Piperacillin Sod/Tazobactam (Sod 3.375 gm/ Sodium Chloride) 50 mls @ 100 mls/ hr IV ONETIME ONE Stop: 03/02/17 19:06 Last Admin: 03/02/17 22:31 Dose: 100 mls/hr Piperacillin Sod/Tazobactam (Sod 3.375 gm/ Sodium Chloride) 50 mls @ 100 mls/ hr IV Q6H [facility] [place] Last Admin: 03/03/17 03:25 Dose: Not Given Vancomycin HCl 1.5 gm/ Sodium (Chloride) 500 mls @ 333.333 mls/hr IV ONETIME ONE Stop: 03/02/17 23:29 Last Admin: 03/03/17 00:15 Dose: 333.333 mls/hr Levofloxacin/Dextrose 750 mg/ (Premix) 150 mls @ 100 mls/hr IV Q48H [facility]AYRO Last Admin: 03/03/17 03:25 Dose: Not Given Levofloxacin/Dextrose (Levaquin In D5w 250 Mg/50 Ml) 50 mls @ 100 mls/hr IV ONETIME ONE Stop: 03/02/17 22:59 Last Admin: 03/02/17 23:34 Dose: 100 mls/hr Promethazine HCl/Codeine (Phenergan With Codeine) 5 ml PO Q8H PRN PRN Reason: Cough Last Admin: 03/03/17 22:07 Dose: 5 ml *Q Meaningful Use (DIS) - VTE *Q VTE Criteria *Q: - Stroke *Q Stroke Criteria *Q: - AMI *Q AMI Criteria *Q: <Lanre Melo - Last Filed: 03/04/17 09:59> Discharge Summary - Hospital Course Free Text/Narrative:: I was present with the resident during history and examination. I discussed the case with the resident and agree with the findings and plan as documented in the residents note. - Patient Data Vitals - Most Recent: Last Vital Signs Temp 36.6 C 03/04/17 08:00 Pulse 70 03/04/17 08:00 Resp 20 03/04/17 08:00 BP 109/56 L 03/04/17 08:00 Pulse Ox 97 03/04/17 08:00 I&O - Last 24 hours: Intake & Output 03/03/17 03/04/17 03/04/17 22:59 06:59 14:59 Intake Total 1150 820 Output Total 480 540 Balance 670 280 Lab Results - Last 24 hrs: Laboratory Results - last 24 hr 03/03/17 03/03/17 03/03/17 Range/Units 10:40 10:40 21:50 WBC 1.39 L (4.0-11.0) K/uL RBC 2.92 L (4.50-5.90) M/uL Hgb 9.0 L (13.0-17.0) g/dL Hct 27.6 L (38.0-50.0) % MCV 94.5 (80.0-98.0) fL MCH 30.8 (27.0-32.0) pg MCHC 32.6 (31.0-37.0) g/dL RDW Std Deviation 64.2 H (28.0-62.0) fl RDW Coeff of Landry 19 H (11.0-15.0) % Plt Count 73 L (150-400) K/uL MPV 13.30 H (7.40-12.00) fL Add Manual Diff YES Neutrophils % (Manual) 47 L (48.0-80.0) % Band Neutrophils % 13 % Lymphocytes % (Manual) 13 L (16.0-40.0) % Monocytes % (Manual) 23 H (0.0-15.0) % Eosinophils % (Manual) 2 (0.0-7.0) % Basophils % (Manual) 2 H (0.0-1.5) % Nucleated RBC % 0.0 /100WBC Absolute Seg Neuts 0.7 Band Neutrophils # 0.2 Lymphocytes # (Manual) 0.2 Monocytes # (Manual) 0.3 Eosinophils # (Manual) 0 Basophils # (Manual) 0 Nucleated RBCs # 0 K/uL INR (0.86-1.11) Sodium 140 (136-146) mmol/L Potassium 4.5 (3.5-5.1) mmol/L Chloride 112 H (98-110) mmol/L Carbon Dioxide 19 L (21-31) mmol/L BUN 41 H (6.0-23.0) mg/dL Creatinine 4.2 H 4.2 H (0.6-1.5) mg/dL Est Cr Clr Drug Dosing 15.06 15.06 mL/min Estimated GFR (MDRD) 14.1 14.1 ml/min Glucose 143 H (60-110) mg/dL Calcium 8.6 L (8.8-10.8) mg/dL Iron (50-170) ug/dL TIBC (273-456) ug/dL % Saturation (20-55) % Random Vancomycin 10.8 ug/mL 03/04/17 03/04/17 03/04/17 Range/Units 05:36 05:36 05:36 WBC 1.26 L (4.0-11.0) K/uL RBC 2.85 L (4.50-5.90) M/uL Hgb 8.8 L (13.0-17.0) g/dL Hct 26.9 L (38.0-50.0) % MCV 94.4 (80.0-98.0) fL MCH 30.9 (27.0-32.0) pg MCHC 32.7 (31.0-37.0) g/dL RDW Std Deviation 65.0 H (28.0-62.0) fl RDW Coeff of Landry 19 H (11.0-15.0) % Plt Count 72 L (150-400) K/uL MPV (7.40-12.00) fL Add Manual Diff YES Neutrophils % (Manual) 54 (48.0-80.0) % Band Neutrophils % 7 % Lymphocytes % (Manual) 34 (16.0-40.0) % Monocytes % (Manual) 5 (0.0-15.0) % Eosinophils % (Manual) (0.0-7.0) % Basophils % (Manual) (0.0-1.5) % Nucleated RBC % 0.0 /100WBC Absolute Seg Neuts 0.7 Band Neutrophils # 0.1 Lymphocytes # (Manual) 0.4 Monocytes # (Manual) 0.1 Eosinophils # (Manual) Basophils # (Manual) Nucleated RBCs # 0 K/uL INR 1.94 H (0.86-1.11) Sodium 141 (136-146) mmol/L Potassium 4.1 (3.5-5.1) mmol/L Chloride 113 H (98-110) mmol/L Carbon Dioxide 18 L (21-31) mmol/L BUN 40 H (6.0-23.0) mg/dL Creatinine 4.2 H (0.6-1.5) mg/dL Est Cr Clr Drug Dosing 15.06 mL/min Estimated GFR (MDRD) 14.1 ml/min Glucose 116 H (60-110) mg/dL Calcium 8.3 L (8.8-10.8) mg/dL Iron (50-170) ug/dL TIBC (273-456) ug/dL % Saturation (20-55) % Random Vancomycin ug/mL 03/04/17 Range/Units 05:36 WBC (4.0-11.0) K/uL RBC (4.50-5.90) M/uL Hgb (13.0-17.0) g/dL Hct (38.0-50.0) % MCV (80.0-98.0) fL MCH (27.0-32.0) pg MCHC (31.0-37.0) g/dL RDW Std Deviation (28.0-62.0) fl RDW Coeff of Landry (11.0-15.0) % Plt Count (150-400) K/uL MPV (7.40-12.00) fL Add Manual Diff Neutrophils % (Manual) (48.0-80.0) % Band Neutrophils % % Lymphocytes % (Manual) (16.0-40.0) % Monocytes % (Manual) (0.0-15.0) % Eosinophils % (Manual) (0.0-7.0) % Basophils % (Manual) (0.0-1.5) % Nucleated RBC % /100WBC Absolute Seg Neuts Band Neutrophils # Lymphocytes # (Manual) Monocytes # (Manual) Eosinophils # (Manual) Basophils # (Manual) Nucleated RBCs # K/uL INR (0.86-1.11) Sodium (136-146) mmol/L Potassium (3.5-5.1) mmol/L Chloride (98-110) mmol/L Carbon Dioxide (21-31) mmol/L BUN (6.0-23.0) mg/dL Creatinine (0.6-1.5) mg/dL Est Cr Clr Drug Dosing mL/min Estimated GFR (MDRD) ml/min Glucose (60-110) mg/dL Calcium (8.8-10.8) mg/dL Iron 47 L (50-170) ug/dL TIBC 175 L (273-456) ug/dL % Saturation 26.86 (20-55) % Random Vancomycin ug/mL CHRISTINE Results - Last 24 hrs: Microbiology 03/02/17 19:34 Aerobic Blood Culture - Preliminary Blood - Venous - Lab Draw NO GROWTH AFTER 1 DAY Anaerobic Blood Culture - Preliminary NO GROWTH AFTER 1 DAY 03/02/17 19:16 Aerobic Blood Culture - Preliminary Blood - Venous NO GROWTH AFTER 1 DAY Anaerobic Blood Culture - Preliminary NO GROWTH AFTER 1 DAY 03/03/17 16:30 Gram Stain - Preliminary Sputum - Expectorated 03/03/17 16:35 Stool Occult Blood (CHRISTINE) - Final Stool / Feces - Stool, Formed NEGATIVE OCCULT BLOOD Med Orders - Current: Current Medications Piperacillin Sod/Tazobactam (Sod 2.25 gm/ Sodium Chloride) 50 mls @ 100 mls/hr IV Q8H [facility] [place] Last Admin: 03/04/17 05:23 Dose: 100 mls/hr Levofloxacin/Dextrose 500 mg/ (Premix) 100 mls @ 100 mls/hr IV Q48H [facility] Vancomycin HCl 1 gm/ Sodium (Chloride) 250 mls @ 166 mls/hr IV Q24H [facility] [place] Last Admin: 03/03/17 23:01 Dose: 166 mls/hr Promethazine HCl/Codeine (Phenergan With Codeine) 5 ml PO Q6H PRN PRN Reason: Cough Last Admin: 03/04/17 04:08 Dose: 5 ml Sodium Chloride (Saline Flush) 10 ml FLUSH ASDIRECTED PRN PRN Reason: Keep Vein Open Sodium Chloride (Saline Flush) 2.5 ml FLUSH ASDIRECTED PRN PRN Reason: Keep Vein Open Vancomycin HCl (Pharmacy To Dose - Vancomycin) 1 dose .XX ASDIRECTED [facility] [place] Discontinued Medications Guaifenesin/Codeine Phosphate (Robitussin Ac) 5 ml PO Q8H PRN PRN Reason: Cough Levofloxacin/Dextrose 500 mg/ (Premix) 100 mls @ 100 mls/hr IV ONETIME ONE Stop: 03/02/17 19:36 Last Admin: 03/02/17 19:45 Dose: 100 mls/hr Piperacillin Sod/Tazobactam (Sod 3.375 gm/ Sodium Chloride) 50 mls @ 100 mls/ hr IV ONETIME ONE Stop: 03/02/17 19:06 Last Admin: 03/02/17 22:31 Dose: 100 mls/hr Piperacillin Sod/Tazobactam (Sod 3.375 gm/ Sodium Chloride) 50 mls @ 100 mls/ hr IV Q6H [facility] [place] Last Admin: 03/03/17 03:25 Dose: Not Given Vancomycin HCl 1.5 gm/ Sodium (Chloride) 500 mls @ 333.333 mls/hr IV ONETIME ONE Stop: 03/02/17 23:29 Last Admin: 03/03/17 00:15 Dose: 333.333 mls/hr Levofloxacin/Dextrose 750 mg/ (Premix) 150 mls @ 100 mls/hr IV Q48H [facility] [place] Last Admin: 03/03/17 03:25 Dose: Not Given Levofloxacin/Dextrose (Levaquin In D5w 250 Mg/50 Ml) 50 mls @ 100 mls/hr IV ONETIME ONE Stop: 03/02/17 22:59 Last Admin: 03/02/17 23:34 Dose: 100 mls/hr Promethazine HCl/Codeine (Phenergan With Codeine) 5 ml PO Q8H PRN PRN Reason: Cough Last Admin: 03/03/17 22:07 Dose: 5 ml Warfarin Sodium (Coumadin) 5 mg PO ONETIME ONE Stop: 03/04/17 09:37 *Q Meaningful Use (DIS) - VTE *Q VTE Criteria *Q: - Stroke *Q Stroke Criteria *Q: - AMI *Q AMI Criteria *Q:
[2017-03-04] MEDS ORDERED: Warfarin 5 MG Tab PO ONE (09:36)
[2017-03-04 10:04] VITALS: BP 130/62
[2017-03-04] MEDS ORDERED: Azithromycin 250 MG Tab PO ONE (10:12)
[2017-03-05] MEDS ORDERED: Levofloxacin/Dextrose 5%-Water 500 MG in Premix Bag 1 BAG IV SCH ×2
== END 2017-03-04 10:30 | disposition home or self-care (01) | DRG 194 ==
LOC: MW.ED 18:10 → MW.MS 18:37
PROVIDERS: ADMIT Internal Medicine; ATTEND Internal Medicine
PROC: 30233N1 Transfusion of Nonautologous Red Blood Cells into Peripheral Vein, Percutaneous Approach (ICD-10-PCS; principal; 2017-03-03)
PROC: 3E0234Z Introduction of Serum, Toxoid and Vaccine into Muscle, Percutaneous Approach (ICD-10-PCS; 2017-03-03)
DX: J18.1 Lobar pneumonia, unspecified organism (principal); C85.90 Non-Hodgkin lymphoma, unspecified, unspecified site; N18.9 Chronic kidney disease, unspecified; D64.9 Anemia, unspecified; R09.02 Hypoxemia; D70.9 Neutropenia, unspecified; D69.6 Thrombocytopenia, unspecified; Z79.01 Long term (current) use of anticoagulants; Z86.718 Personal history of other venous thrombosis and embolism; Z79.899 Other long term (current) drug therapy; R93.8 Abnormal findings on diagnostic imaging of other specified body structures; J01.90 Acute sinusitis, unspecified; Z23 Encounter for immunization
CPT/HCPCS: 36415; 36430; 71020; 71020-26; 80048; 80053; 80202; 82272; 82565; 83550; 83605; 85025; 85610; 86850; 86900; 86901; 86920; 86921; 86922; 87040; 87070; 87205; 90686; 96374; 99283; 99285-25; A9270-GY; G0008; G0463; J1956; J2543; J3370; J7040; J7050; P9016

== ENCOUNTER 2017-11-01 00:21 | Emergency (ER) | payer MEDICARE, BC ==
--- NOTE | 2017-11-01 00:50 | EDM.PDOC ---
ED HPI GENERAL MEDICAL PROBLEM - General Chief Complaint: Genitourinary Problem Stated Complaint: CHAYO ROOT Time Seen by Provider: 11/01/17 00:24 Source of Information: Reports: Patient, Family History Limitations: Reports: No Limitations - History of Present Illness INITIAL COMMENTS - FREE TEXT/NARRATIVE: HISTORY AND PHYSICAL: History of present illness: 67-year-old male presented emergency department with chief complaint of difficulty with urination 1-2 days with past medical history of non-Hodgkin's lymphoma, single kidney, end-stage renal disease, history of DVT on warfarin, and factor V Leiden mutation. Patient does have a port right upper chest as well as a fistula in left arm for possible dialysis in the future. States he has not had dialysis before. Dr. Bolivar is his Police Aide [facility]. Patient states that approximately 1-2 days ago he noticed that he was having more difficulty urinating. States that he felt like he had to urinate but did not have a strong stream and had to go to the bathroom more often. Does not know if he has an enlarged prostate. States he gets up every 2-3 hours at night to urinate. The frequent urination at night has been a issue for many years. Has not seen a urologist for this. States that he only has 1 kidney secondary to chemotherapy "killing" his other kidney. Patient complains of no CVA tenderness, blood in his urine, foul smelling urine, but has had some dysuria as he states it "hanson to pee". He does not remember having any urinary tract infection in the past. Tonight he came primarily to make sure that his kidney was okay given his inability to urinate. States that he is urinating just not as much. Denies any associated fever, chills, malaise, nausea, vomiting, diarrhea, or other signs of systemic infection. He also denies any chest pain, palpitations, shortness of breath, syncopal episodes, or focal neurologic deficits. Patient see's Dr. Brown, oncologist, for his non-Hodgkin's lymphoma. States that he had a PET scan done approximately 2 weeks ago which showed no new malignancies and resolution of his primary. Patient sees Dr. Acosta as his primary care provider here in [place]. Previous Kidney funtion: 09/17 09/27 10/04 10/19 BUN 49 35 34 32 Cr 4.6 4.1 3.6 3.6 GFR 12.7 14.5 16.9 16.9 -1312 Post void residual 190. -1328 UA unremarkable, no UTI -0330 Urine negative for blood or UTI, Worsening kidney function BUN 44, Cr 4.3 , GFR 13.8, K 4.6. I did call and talk to her Dr. Childers hoisting laborer net applications developer in [facility]. I relayed information of worsening kidney function and my concern that maybe he may have a mild obstructive uropathy. Patient is able to urinate but secondary to worsening kidney function she agreed that he needs to be seen as soon as possible. No need for transfer at this time. She instructed me to have him call Nephrology at [facility] this morning and make an apartment to be seen by them today or tomorrow. This was communicated to the patient and they will plan to see her on Wednesday. Review of systems: As per history of present illness and below otherwise all systems reviewed and negative. Past medical history: As per history of present illness and as reviewed below otherwise noncontributory. Surgical history: As per history of present illness and as reviewed below otherwise noncontributory. Social history: No reported history of drug or alcohol abuse. Family history: As per history of present illness and as reviewed below otherwise noncontributory. Physical exam: HEENT: Atraumatic, normocephalic, pupils reactive, negative for conjunctival pallor or scleral icterus, mucous membranes moist, throat clear, neck supple, nontender, trachea midline. Lungs: Clear to auscultation, breath sounds equal bilaterally, chest nontender, there is a port right upper chest Heart: S1S2, regular, negative for clicks, rubs, or JVD. Abdomen: Soft, protuberant, obese, nondistended, nontender. Negative for masses or hepatosplenomegaly. Negative for costovertebral tenderness. Pelvis: Stable nontender. Genitourinary: Deferred. Rectal: Moderately enlarged prostate, no abnormal lesions noted Extremities: Atraumatic, negative for cords or calf pain. Neurovascular unremarkable, fistula left arm. Neuro: Awake, alert, oriented. Cranial nerves II through XII unremarkable. Cerebellum unremarkable. Motor and sensory unremarkable throughout. Exam nonfocal. Diagnostics: [CBC, CMP, UA/UC, bladder scan Therapeutics: [] Impression: Mild obstructive uropathy End-stage renal disease Enlarged prostate Plan: See H&P. Patient was discharged with instructions to follow-up with nephrology at [facility] today or tomorrow. Is also instructed to return to emergency department if he had a new or worsening symptoms. Patient is able to urinate still at this time and I did discuss not using a Hansen catheter secondary to increased risk of infection. Police Aide Dr. Childers agrees. - Related Data Allergies Allergy/AdvReac Type Severity Reaction Status Date / Time No Known Allergies Allergy Verified 03/02/17 18:20 Home Meds: Home Meds Acetaminophen [Pain Relief] 500 mg PO TID PRN 10/16/13 [History] Acyclovir 400 mg PO BID 10/16/13 [History] Magnesium Oxide 400 mg PO QID 10/16/13 [History] Montelukast [Singulair] 10 mg PO DAILY 10/16/13 [History] Pregabalin [Lyrica] 200 mg PO BID 10/16/13 [History] Lenalidomide [Revlimid] 10 mg PO DAILY 05/26/14 [History] Omeprazole [priLOSEC OTC] 20 mg PO DAILY 05/26/14 [History] Warfarin [Coumadin] 5 mg PO SUTUTHSA@2100 05/26/14 [History] Calcitriol 0.25 mcg PO Q2D@0900 03/02/17 [History] Cholecalciferol (Vitamin D3) [Vitamin D3] 2,000 unit PO DAILY 03/02/17 [History] Fluticasone Propionate [Flonase] 2 sprays NASBOTH DAILY PRN 03/02/17 [History] Loratadine 10 mg PO DAILY PRN 03/02/17 [History] Sodium Bicarbonate 1,300 mg PO TIDMEALS 03/03/17 [History] Sodium Bicarbonate 650 mg PO BEDTIME 03/03/17 [History] Warfarin [Coumadin] 2.5 mg PO MOWEFR@2100 03/03/17 [History] Albuterol [IJD: Albuterol HFA] 2 puff .XX QID PRN #1 inhaler 03/04/17 [Rx] Amoxicillin/Potassium Clav [Augmentin 875-125 Tablet] 1 each PO BID 7 Days #14 tablet 03/04/17 [Rx] Past Medical History HEENT History: Reports: Impaired Vision Respiratory History: Reports: Pneumonia, Recurrent Gastrointestinal History: Reports: GERD Genitourinary History: Reports: Other (See Below) Other Genitourinary History: 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 Immunologic History: Reports: Immunosuppression Oncologic (Cancer) History: Reports: Non-Hodgkin's Lymphoma - Past Surgical History Male Surgical History: Reports: Nephrectomy, Other (See Below) Other Male Surgeries/Procedures: Shunt for Dialysis to Left Arm Social & Family History - Family History Family Medical History: Noncontributory - Tobacco Use Smoking Status *Q: Never Smoker - Caffeine Use Caffeine Use: Reports: Tea ED ROS GENERAL - Review of Systems Review Of Systems: ROS reveals no pertinent complaints other than HPI. ED EXAM, GENERAL - Physical Exam Exam: See Below Course - Vital Signs Last Recorded V/S: Last Vital Signs Temp 97.5 F 11/01/17 00:32 Pulse 127 H 11/01/17 00:32 Resp 18 11/01/17 00:32 BP 127/80 11/01/17 00:32 Pulse Ox 96 11/01/17 00:32 - Orders/Labs/Meds Orders: Active Orders 24 hr Category Date Time Status Assess Neurological Status [RC] ASDIRECTED Care 11/01/17 01:42 Inactive Bedrest [RC] ASDIRECTED Care 11/01/17 01:42 Inactive Blood Glucose Check, Bedside [RC] STAT Care 11/01/17 01:42 Inactive Cardiac Monitoring [RC] . DIRECTED Care 11/01/17 01:42 Inactive EKG Documentation Completion [RC] STAT Care 11/01/17 01:42 Inactive Height and Weight [RC] UPON Care 11/01/17 01:42 Inactive Initiate Acute Stroke Protocol [RC] STAT Care 11/01/17 01:42 Inactive NIH Stroke Scale [RC] ASDIRECTED Care 11/01/17 01:42 Inactive Nursing Bedside Swallow Screen [RC] ASDIRECTED Care 11/01/17 01:42 Inactive Oxygen Therapy [RC] ASDIRECTED Care 11/01/17 01:42 Inactive Peripheral IV Care [RC] . DIRECTED Care 11/01/17 01:42 Inactive Stroke Education, General [RC] Click to Edit Care 11/01/17 01:42 Inactive Vital Signs [RC] PER UNIT ROUTINE Care 11/01/17 03:34 Active Vital Signs [RC] Q15M Care 11/01/17 01:42 Inactive Chest 1V Frontal [CR] Stat Exams 11/01/17 01:45 Stop Req Head wo Cont [CT] Stat Exams 11/01/17 01:42 Stop Req Labs: Laboratory Tests 11/01/17 11/01/17 11/01/17 Range/Units 00:36 00:50 00:50 WBC 5.35 (4.0-11.0) K/uL RBC 2.54 L (4.50-5.90) M/uL Hgb 8.9 L (13.0-17.0) g/dL Hct 27.7 L (38.0-50.0) % MCV 109.1 H (80.0-98.0) fL MCH 35.0 H (27.0-32.0) pg MCHC 32.1 (31.0-37.0) g/dL RDW Std Deviation 77.2 H (28.0-62.0) fl RDW Coeff of Landry 21 H (11.0-15.0) % Plt Count 153 (150-400) K/uL MPV 10.20 (7.40-12.00) fL Neut % (Auto) 83.5 H (48.0-80.0) % Lymph % (Auto) 4.3 L (16.0-40.0) % Boundary % (Auto) 10.3 (0.0-15.0) % Eos % (Auto) 1.3 (0.0-7.0) % Baso % (Auto) 0.6 (0.0-1.5) % Neut # (Auto) 4.5 (1.4-5.7) K/uL Lymph # (Auto) 0.2 L (0.6-2.4) K/uL Boundary # (Auto) 0.6 (0.0-0.8) K/uL Eos # (Auto) 0.1 (0.0-0.7) K/uL Baso # (Auto) 0.0 (0.0-0.1) K/uL Sodium 140 (136-148) mmol/L Potassium 4.6 (3.5-5.1) mmol/L Chloride 108 H (98-107) mmol/L Carbon Dioxide 23.2 (21.0-32.0) mmol/L BUN 44 H (7.0-18.0) mg/dL Creatinine 4.3 H (0.8-1.3) mg/dL Est Cr Clr Drug Dosing TNP Estimated GFR (MDRD) 13.8 ml/min Glucose 123 H (74-106) mg/dL Calcium 8.4 L (8.5-10.1) mg/dL Total Bilirubin 0.5 (0.2-1.0) mg/dL AST 13 L (15-37) IU/L ALT 14 (14-63) IU/L Alkaline Phosphatase 117 H (46-116) U/L Total Protein 6.5 (6.4-8.2) g/dL Albumin 3.5 (3.4-5.0) g/dL Globulin 3.0 (2.0-3.5) g/dL Albumin/Globulin Ratio 1.2 L (1.3-2.8) Urine Color YELLOW Urine Appearance HAZY Urine pH 7.5 (5.0-8.0) Ur Specific [place] 1.015 (1.001-1.035) Urine Protein 30 (NEGATIVE) mg/dL Urine Glucose (UA) 250 H (NEGATIVE) mg/dL Urine Ketones NEGATIVE (NEGATIVE) mg/dL Urine Occult Blood SMALL H (NEGATIVE) Urine Nitrite NEGATIVE (NEGATIVE) Urine Bilirubin NEGATIVE (NEGATIVE) Urine Urobilinogen 0.2 (<2.0) EU/dL Ur Leukocyte Esterase NEGATIVE (NEGATIVE) Urine RBC 0-2 (0-2/HPF) Urine WBC 0-1 (0-5/HPF) Ur Epithelial Cells RARE (NONE-FEW) Urine Bacteria FEW (NEGATIVE) Meds: Medications Discontinued Medications Generic Name Dose Route Start Last Admin Trade Name Freq PRN Reason Stop Dose Admin Aspirin 325 mg 11/01/17 01:42 11/01/17 02:18 Aspirin PO 11/01/17 01:43 Not Given ONETIME ONE Sodium Chloride 1,000 mls @ 999 mls/hr 11/01/17 01:42 11/01/17 02:18 Normal Saline IV 11/01/17 02:42 Not Given .Bolus ONE Sodium Chloride 10 ml 11/01/17 01:42 Saline Flush FLUSH ASDIRECTED PRN Keep Vein Open Sodium Chloride 2.5 ml 06/04/18 01:42 Saline Flush FLUSH ASDIRECTED PRN Keep Vein Open Sodium Chloride 2.5 ml 11/01/17 01:42 Saline Flush FLUSH ASDIRECTED PRN Keep Vein Open Departure - Departure Time of Disposition: 03:59 Disposition: Home, Self-Care 01 Condition: Good Clinical Impression: Obstructive uropathy, End stage renal disease - Discharge Information Referrals: Ubaldo Acosta MD [Primary Care Provider] - Forms: ED Department Discharge Additional Instructions: My general discharge The following information is given to patients seen in the emergency department who are being discharged to home. This information is to outline your options for follow-up care. We provide all patients seen in our emergency department with a follow-up referral. The need for follow-up, as well as the timing and circumstances, are variable depending upon the specifics of your emergency department visit. If you don't have a primary care physician on staff, we will provide you with a referral. We always advise you to contact your personal physician following an emergency department visit to inform them of the circumstance of the visit and for follow-up with them and/or the need for any referrals to a consulting specialist. The emergency department will also refer you to a specialist when appropriate. This referral assures that you have the opportunity for follow-up care with a specialist. All of these measure are taken in an effort to provide you with optimal care, which includes your follow-up. Under all circumstances we always encourage you to contact your private physician who remains a resource for coordinating your care. When calling for follow-up care, please make the office aware that this follow-up is from your recent emergency room visit. If for any reason you are refused follow-up, please contact the [facility] Emergency Department at and asked to speak to the emergency department charge nurse. [facility] Primary Care [address] [place] [id number] [facility] [address] [place] [id number] Call and make an appointment to be seen immediately by nephrology at [facility]. There expecting your call. Dr. Santoyo was hoisting laborer net applications developer in [place] that Dr. Rosado spoke to when you were in the ER in [place]. Return emergency department if any new or worsening symptoms - My Orders Last 24 Hours: My Active Orders 11/01/17 01:42 Assess Neurological Status [RC] ASDIRECTED Bedrest [RC] ASDIRECTED Blood Glucose Check, Bedside [RC] STAT Cardiac Monitoring [RC] . DIRECTED EKG Documentation Completion [RC] STAT Height and Weight [RC] UPON Initiate Acute Stroke Protocol [RC] STAT NIH Stroke Scale [RC] ASDIRECTED Nursing Bedside Swallow Screen [RC] ASDIRECTED Oxygen Therapy [RC] ASDIRECTED Peripheral IV Care [RC] . DIRECTED Stroke Education, General [RC] Click to Edit Vital Signs [RC] Q15M Head wo Cont [CT] Stat 11/01/17 01:45 Chest 1V Frontal [CR] Stat 11/01/17 03:34 Vital Signs [RC] PER UNIT ROUTINE - Assessment/Plan Last 24 Hours: My Active Orders 11/01/17 01:42 Assess Neurological Status [RC] ASDIRECTED Bedrest [RC] ASDIRECTED Blood Glucose Check, Bedside [RC] STAT Cardiac Monitoring [RC] . DIRECTED EKG Documentation Completion [RC] STAT Height and Weight [RC] UPON Initiate Acute Stroke Protocol [RC] STAT NIH Stroke Scale [RC] ASDIRECTED Nursing Bedside Swallow Screen [RC] ASDIRECTED Oxygen Therapy [RC] ASDIRECTED Peripheral IV Care [RC] . DIRECTED Stroke Education, General [RC] Click to Edit Vital Signs [RC] Q15M Head wo Cont [CT] Stat 11/01/17 01:45 Chest 1V Frontal [CR] Stat 11/01/17 03:34 Vital Signs [RC] PER UNIT ROUTINE
[2017-11-01 01:18] LABS: CHLORIDE,CL 108 mmol/L (98-107); SODIUM,NA 140 mmol/L (136-148)
[2017-11-01] MEDS ORDERED: Aspirin 325 MG Tab PO ONE (01:42)
[2017-11-01] MEDS ORDERED: Sodium Chloride 0.9% 2.5 ML Syringe FLUSH PRN ×2 (01:42)
[2017-11-01] MEDS ORDERED: Sodium Chloride 0.9% 10 ML Syringe FLUSH PRN (01:42)
[2017-11-01] MEDS ORDERED: Sodium Chloride 0.9% 1,000 ML IV ONE (01:42)
[2017-11-01 04:22] VITALS: BP 117/80
== END 2017-11-01 04:20 | disposition home or self-care (01) ==
LOC: MW.ED 00:21
DX: N13.9 Obstructive and reflux uropathy, unspecified (principal); N18.6 End stage renal disease; N40.0 Benign prostatic hyperplasia without lower urinary tract symptoms; K21.9 Gastro-esophageal reflux disease without esophagitis; Z79.899 Other long term (current) drug therapy; Z79.01 Long term (current) use of anticoagulants; Z86.718 Personal history of other venous thrombosis and embolism; Z85.72 Personal history of non-Hodgkin lymphomas
CPT/HCPCS: 80053; 81001; 85025; 87086; 99283; J1642

== ENCOUNTER 2017-11-21 15:04 | Inpatient (IN) | payer MEDICARE, BC ==
[2017-11-21] MEDS ORDERED: Albuterol/Ipratropium 3.0-0.5 MG/3 ML Neb Soln NEB ONE (15:19)
[2017-11-21] MEDS ORDERED: Sodium Chloride 0.9% 2.5 ML Syringe FLUSH PRN ×2 (15:19→18:14)
[2017-11-21] MEDS ORDERED: Sodium Chloride 0.9% 10 ML Syringe FLUSH PRN ×2 (15:19→18:14)
[2017-11-21] MEDS ORDERED: predniSONE 20 MG Tab PO ONE (15:20)
[2017-11-21] MEDS ORDERED: Albuterol 0.083% 2.5 MG/3 ML Neb Soln NEB ONE (15:54)
[2017-11-21] MEDS ORDERED: Furosemide 40 MG/4 ML VIAL IVPUSH ONE (16:11)
[2017-11-21] MEDS ORDERED: Diltiazem 25 MG/5 ML SDV IVPUSH ONE ×3 (16:17→18:08)
[2017-11-21] MEDS ORDERED: Diltiazem 125 MG in Sodium Chloride 0.9% 100 ML IV ONE (16:20)
--- NOTE | 2017-11-21 16:33 | EDM.PDOC ---
ED HPI GENERAL MEDICAL PROBLEM - General Chief Complaint: ENT Problem Stated Complaint: POSSIBLE SINUS INFECTION/CONGESTION Time Seen by Provider: 11/21/17 15:09 Source of Information: Reports: Patient History Limitations: Reports: No Limitations - History of Present Illness INITIAL COMMENTS - FREE TEXT/NARRATIVE: History of present illness: []Patient has been congested for one month and is having increasing difficulty breathing. He states his sinuses feel like there is pressure, he feels weak and short of breath. Denies any chest pain or dizziness. He is also having leg swelling that is increased over the past month. Review of systems: As per history of present illness and below otherwise all systems reviewed and negative. Past medical history: As per history of present illness and as reviewed below otherwise noncontributory. Surgical history: As per history of present illness and as reviewed below otherwise noncontributory. Social history: No reported history of drug or alcohol abuse. Family history: As per history of present illness and as reviewed below otherwise noncontributory. Physical exam: General: Well developed, well nourished in NAD HEENT: Atraumatic, normocephalic, pupils reactive, negative for conjunctival pallor or scleral icterus, mucous membranes moist, throat clear, neck supple, nontender, trachea midline. Lungs: Bilateral rhonchi throughout no respiratory distress Heart: S1S2, irregular, negative for clicks, rubs, or JVD. Abdomen: Soft, nondistended, nontender. Negative for masses or hepatosplenomegaly. Negative for costovertebral tenderness. Pelvis: Stable nontender. Genitourinary: Deferred. Rectal: Deferred. Extremities: Atraumatic, 1+ pitting edema negative for cords or calf pain. Neurovascular unremarkable. Neuro: Awake, alert, oriented. Cranial nerves II through XII unremarkable. Cerebellum unremarkable. Motor and sensory unremarkable throughout. Exam nonfocal. Diagnostics: []CBC normal chemistry shows mildly high potassium at 5.3, renal insufficiency which is chronic, BNP is 1500's, troponin is negative, EKG shows A. fib with rapid ventricular rate x-ray shows diffuse congestion Therapeutics: []Patient was given Lasix, DuoNeb and diltiazem bolus and drip started in the ED. Impression: []Chronic renal insufficiency, A. fib with rapid ventricular rate, congestive heart failure Plan: []Admit to ICU to for further stabilization, treatment and workup. Definitive disposition and diagnosis as appropriate pending reevaluation and review of above. sinus pain Pain Score (Numeric/FACES): 8 - Related Data Allergies Allergy/AdvReac Type Severity Reaction Status Date / Time No Known Allergies Allergy Verified 11/21/17 15:15 Home Meds: Home Meds Acetaminophen [Pain Relief] 500 mg PO TID PRN 10/16/13 [History] Acyclovir 400 mg PO BID 10/16/13 [History] Magnesium Oxide 400 mg PO QID 10/16/13 [History] Montelukast [Singulair] 10 mg PO DAILY 10/16/13 [History] Pregabalin [Lyrica] 200 mg PO BID 10/16/13 [History] Lenalidomide [Revlimid] 10 mg PO DAILY 05/26/14 [History] Omeprazole [priLOSEC OTC] 20 mg PO DAILY 05/26/14 [History] Warfarin [Coumadin] 5 mg PO SUTUTHSA@2100 05/26/14 [History] Calcitriol 0.25 mcg PO Q2D@0900 03/02/17 [History] Cholecalciferol (Vitamin D3) [Vitamin D3] 2,000 unit PO DAILY 03/02/17 [History] Fluticasone Propionate [Flonase] 2 sprays NASBOTH DAILY PRN 03/02/17 [History] Loratadine 10 mg PO DAILY PRN 03/02/17 [History] Sodium Bicarbonate 1,300 mg PO TIDMEALS 03/03/17 [History] Sodium Bicarbonate 650 mg PO BEDTIME 03/03/17 [History] Warfarin [Coumadin] 2.5 mg PO MOWEFR@2100 03/03/17 [History] Albuterol [IJD: Albuterol HFA] 2 puff .XX QID PRN #1 inhaler 03/04/17 [Rx] Past Medical History HEENT History: Reports: Impaired Vision Cardiovascular History: Reports: None Respiratory History: Reports: Pneumonia, Recurrent Gastrointestinal History: Reports: GERD Genitourinary History: Reports: Other (See Below) Other Genitourinary History: 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 Musculoskeletal History: Reports: None Neurological History: Reports: None Psychiatric History: Reports: None Endocrine/Metabolic History: Reports: None Hematologic History: Reports: None Immunologic History: Reports: Immunosuppression Oncologic (Cancer) History: Reports: Non-Hodgkin's Lymphoma Dermatologic History: Reports: None - Infectious Disease History Infectious Disease History: Reports: Chicken Pox - Past Surgical History Head Surgeries/Procedures: Reports: None HEENT Surgical History: Reports: None Cardiovascular Surgical History: Reports: None Respiratory Surgical History: Reports: None GI Surgical History: Reports: None Male Surgical History: Reports: Nephrectomy, Other (See Below) Other Male Surgeries/Procedures: Shunt for Dialysis to Left Arm Endocrine Surgical History: Reports: None Neurological Surgical History: Reports: None Musculoskeletal Surgical History: Reports: None Oncologic Surgical History: Reports: None Dermatological Surgical History: Reports: None Social & Family History - Family History Family Medical History: Noncontributory - Tobacco Use Smoking Status *Q: Never Smoker Second Hand Smoke Exposure: No - Caffeine Use Caffeine Use: Reports: None - Recreational Drug Use Recreational Drug Use: No ED ROS ENT - Review of Systems Review Of Systems: See Below (See history of present illness) ED EXAM, ENT - Physical Exam Exam: See Below (See history of present illness) Course - Vital Signs Last Recorded V/S: Last Vital Signs Temp 97.2 F 11/21/17 15:16 Pulse 119 H 11/21/17 16:47 Resp 20 11/21/17 16:47 BP 111/78 11/21/17 16:47 Pulse Ox 97 11/21/17 16:47 - Orders/Labs/Meds Orders: Active Orders 24 hr Category Date Time Status EKG Documentation Completion [RC] STAT Care 11/21/17 16:11 Active RT Aerosol Therapy [RC] ASDIRECTED Care 11/21/17 15:19 Active RT Aerosol Therapy [RC] ASDIRECTED Care 11/21/17 15:55 Active Chest 2V [CR] Stat Exams 11/21/17 15:19 Taken Sodium Chloride 0.9% [Saline Flush] Med 11/21/17 15:19 Active 10 ml FLUSH ASDIRECTED PRN Sodium Chloride 0.9% [Saline Flush] Med 11/21/17 15:19 Active 2.5 ml FLUSH ASDIRECTED PRN Saline Lock Insert [OM.PC] Stat Oth 11/21/17 15:18 Ordered Medication Orders Acetaminophen (Tylenol Extra Strength) 500 mg PO TID PRN PRN Reason: PAIN Acyclovir (Zovirax) 400 mg PO BID J[facility]RO Calcitriol (Rocaltrol) 0.25 mcg PO Q2D@0900 [facility] Cholecalciferol (Vitamin D3) 2,000 units PO DAILY [facility] Fluticasone Propionate (Flonase) 0 gm NASBOTH DAILY PRN PRN Reason: Allergies Diltiazem HCl 125 mg/ Sodium (Chloride) 125 mls @ 5 mls/hr IV NOW ONE; Protocol Stop: 11/22/17 17:19 Last Admin: 11/21/17 17:06 Dose: 5 mg/hr, 5 mls/hr Loratadine (Claritin) 10 mg PO DAILY PRN PRN Reason: ALLERGIES Magnesium Oxide (Magnesium Oxide) 400 mg PO QID [facility] Montelukast Sodium (Singulair) 10 mg PO DAILY [facility] Non-Formulary Medication (Lenalidomide [Revlimid]) 10 mg PO DAILY [facility] Omeprazole (Omeprazole) 20 mg PO DAILY [facility] Pregabalin (Lyrica) 200 mg PO BID [facility] Sodium Bicarbonate (Sodium Bicarbonate) 650 mg PO BEDTIME [facility] Sodium Bicarbonate (Sodium Bicarbonate) 1,300 mg PO TIDMEALS [facility] Sodium Chloride (Saline Flush) 10 ml FLUSH ASDIRECTED PRN PRN Reason: Keep Vein Open Last Admin: 11/21/17 16:23 Dose: 10 ml Sodium Chloride (Saline Flush) 2.5 ml FLUSH ASDIRECTED PRN PRN Reason: Keep Vein Open Warfarin Sodium (Coumadin) 2.5 mg PO MOWEFR@2100 [facility] Warfarin Sodium (Coumadin) 5 mg PO SUTUTHSA@2100 [facility] Labs: Laboratory Tests 11/21/17 11/21/17 11/21/17 Range/Units 15:45 15:45 15:45 WBC 6.35 (4.0-11.0) K/uL RBC 2.76 L (4.50-5.90) M/uL Hgb 9.7 L (13.0-17.0) g/dL Hct 30.1 L (38.0-50.0) % MCV 109.1 H (80.0-98.0) fL MCH 35.1 H (27.0-32.0) pg MCHC 32.2 (31.0-37.0) g/dL RDW Std Deviation 75.6 H (28.0-62.0) fl RDW Coeff of Landry 19 H (11.0-15.0) % Plt Count 68 L (150-400) K/uL MPV 10.10 (7.40-12.00) fL Neut % (Auto) 87.3 H (48.0-80.0) % Lymph % (Auto) 5.0 L (16.0-40.0) % Cowley % (Auto) 6.5 (0.0-15.0) % Eos % (Auto) 0.9 (0.0-7.0) % Baso % (Auto) 0.3 (0.0-1.5) % Neut # (Auto) 5.5 (1.4-5.7) K/uL Lymph # (Auto) 0.3 L (0.6-2.4) K/uL Cowley # (Auto) 0.4 (0.0-0.8) K/uL Eos # (Auto) 0.1 (0.0-0.7) K/uL Baso # (Auto) 0.0 (0.0-0.1) K/uL Nucleated RBC % 0.0 /100WBC Nucleated RBCs # 0 K/uL INR Sodium 143 (136-148) mmol/L Potassium 5.3 H (3.5-5.1) mmol/L Chloride 110 H (98-107) mmol/L Carbon Dioxide 23.9 (21.0-32.0) mmol/L BUN 33 H (7.0-18.0) mg/dL Creatinine 3.8 H (0.8-1.3) mg/dL Est Cr Clr Drug Dosing 16.56 mL/min Estimated GFR (MDRD) 15.9 ml/min Glucose 125 H (74-106) mg/dL Calcium 8.0 L (8.5-10.1) mg/dL Total Bilirubin 0.4 (0.2-1.0) mg/dL AST 15 (15-37) IU/L ALT 20 (14-63) IU/L Alkaline Phosphatase 111 (46-116) U/L Troponin I < 0.050 (0.000-0.056) ng/mL B-Natriuretic Peptide 1510 H (<100) PG/ML Total Protein 6.4 (6.4-8.2) g/dL Albumin 3.5 (3.4-5.0) g/dL Globulin 2.9 (2.0-3.5) g/dL Albumin/Globulin Ratio 1.2 L (1.3-2.8) 11/21/17 Range/Units 15:45 WBC (4.0-11.0) K/uL RBC (4.50-5.90) M/uL Hgb (13.0-17.0) g/dL Hct (38.0-50.0) % MCV (80.0-98.0) fL MCH (27.0-32.0) pg MCHC (31.0-37.0) g/dL RDW Std Deviation (28.0-62.0) fl RDW Coeff of Landry (11.0-15.0) % Plt Count (150-400) K/uL MPV (7.40-12.00) fL Neut % (Auto) (48.0-80.0) % Lymph % (Auto) (16.0-40.0) % Cowley % (Auto) (0.0-15.0) % Eos % (Auto) (0.0-7.0) % Baso % (Auto) (0.0-1.5) % Neut # (Auto) (1.4-5.7) K/uL Lymph # (Auto) (0.6-2.4) K/uL Cowley # (Auto) (0.0-0.8) K/uL Eos # (Auto) (0.0-0.7) K/uL Baso # (Auto) (0.0-0.1) K/uL Nucleated RBC % /100WBC Nucleated RBCs # K/uL INR 1.56 Sodium (136-148) mmol/L Potassium (3.5-5.1) mmol/L Chloride (98-107) mmol/L Carbon Dioxide (21.0-32.0) mmol/L BUN (7.0-18.0) mg/dL Creatinine (0.8-1.3) mg/dL Est Cr Clr Drug Dosing mL/min Estimated GFR (MDRD) ml/min Glucose (74-106) mg/dL Calcium (8.5-10.1) mg/dL Total Bilirubin (0.2-1.0) mg/dL AST (15-37) IU/L ALT (14-63) IU/L Alkaline Phosphatase (46-116) U/L Troponin I (0.000-0.056) ng/mL B-Natriuretic Peptide (<100) PG/ML Total Protein (6.4-8.2) g/dL Albumin (3.4-5.0) g/dL Globulin (2.0-3.5) g/dL Albumin/Globulin Ratio (1.3-2.8) Meds: Medications Generic Name Dose Route Start Last Admin Trade Name Freq PRN Reason Stop Dose Admin Acetaminophen 500 mg 11/21/17 17:08 Tylenol Extra Strength PO TID PRN PAIN Acyclovir 400 mg 11/21/17 21:00 Zovirax PO BID [facility] Calcitriol 0.25 mcg 11/23/17 09:00 Rocaltrol PO Q2D@0900 [facility] Cholecalciferol 2,000 units 11/22/17 09:00 Vitamin D3 PO DAILY [facility] Fluticasone Propionate 0 gm 11/21/17 16:51 Flonase NASBOTH DAILY PRN Allergies Diltiazem HCl 125 mg/ Sodium 125 mls @ 5 mls/hr 11/21/17 16:20 11/21/17 17:06 Chloride IV 11/22/17 17:19 5 mg/hr NOW ONE 5 mls/hr Administration Protocol 5 MG/HR Loratadine 10 mg 11/21/17 17:15 Claritin PO DAILY PRN ALLERGIES Magnesium Oxide 400 mg 11/21/17 18:00 Magnesium Oxide PO QID [facility] Montelukast Sodium 10 mg 11/22/17 09:00 Singulair PO DAILY [facility] Non-Formulary Medication 10 mg 11/22/17 09:00 Lenalidomide [Revlimid] PO DAILY [facility] Omeprazole 20 mg 11/22/17 09:00 Omeprazole PO DAILY [facility] Pregabalin 200 mg 11/21/17 21:00 Lyrica PO BID [facility] Sodium Bicarbonate 650 mg 11/21/17 21:00 Sodium Bicarbonate PO BEDTIME [facility] Sodium Bicarbonate 1,300 mg 11/21/17 17:30 Sodium Bicarbonate PO TIDMEALS [facility] Sodium Chloride 10 ml 11/21/17 15:19 11/21/17 16:23 Saline Flush FLUSH 10 ml ASDIRECTED PRN Administration Keep Vein Open Sodium Chloride 2.5 ml 11/21/17 15:19 Saline Flush FLUSH ASDIRECTED PRN Keep Vein Open Warfarin Sodium 2.5 mg 11/22/17 21:00 Coumadin PO MOWEFR@2100 [facility]RO Warfarin Sodium 5 mg 11/21/17 21:00 Coumadin PO SUTUTHSA@2100 [facility] Discontinued Medications Generic Name Dose Route Start Last Admin Trade Name Freq PRN Reason Stop Dose Admin Albuterol 2.5 mg 11/21/17 15:54 11/21/17 16:03 Proventil Neb Soln NEB 11/21/17 15:55 2.5 mg ONETIME ONE Administration Albuterol/Ipratropium 3 ml 11/21/17 15:19 11/21/17 15:30 Duoneb 3.0-0.5 Mg/3 Ml NEB 11/21/17 15:20 3 ml ONETIME ONE Administration Diltiazem HCl 10 mg 11/21/17 16:17 11/21/17 16:28 Diltiazem IVPUSH 11/21/17 16:18 10 mg ONETIME ONE Administration Furosemide 40 mg 11/21/17 16:11 11/21/17 16:18 Lasix IVPUSH 11/21/17 16:12 40 mg NOW ONE Administration Prednisone 60 mg 11/21/17 15:20 11/21/17 16:03 Prednisone PO 11/21/17 15:21 Not Given ONETIME ONE Sodium Polystyrene Sulfonate 15 gm 11/21/17 16:47 11/21/17 17:01 Kayexalate PO 11/21/17 16:48 15 gm ONETIME ONE Administration Departure - Departure Time of Disposition: 16:32 Disposition: Admitted As Inpatient 64 Condition: Fair Clinical Impression: Atrial fibrillation with tachycardic ventricular rate, Hypoxia Congestive heart failure Qualifiers: Heart failure type: unspecified Heart failure chronicity: unspecified Qualified Code(s): I50.9 - Heart failure, unspecified - Discharge Information - My Orders Last 24 Hours: My Active Orders 11/21/17 15:18 Saline Lock Insert [OM.PC] Stat 11/21/17 15:19 RT Aerosol Therapy [RC] ASDIRECTED Chest 2V [CR] Stat Sodium Chloride 0.9% [Saline Flush] 10 ml FLUSH ASDIRECTED PRN Sodium Chloride 0.9% [Saline Flush] 2.5 ml FLUSH ASDIRECTED PRN 06/24/18 15:55 RT Aerosol Therapy [RC] ASDIRECTED 11/21/17 16:11 EKG Documentation Completion [RC] STAT - Assessment/Plan Last 24 Hours: My Active Orders 11/21/17 15:18 Saline Lock Insert [OM.PC] Stat 11/21/17 15:19 RT Aerosol Therapy [RC] ASDIRECTED Chest 2V [CR] Stat Sodium Chloride 0.9% [Saline Flush] 10 ml FLUSH ASDIRECTED PRN Sodium Chloride 0.9% [Saline Flush] 2.5 ml FLUSH ASDIRECTED PRN 11/21/17 15:55 RT Aerosol Therapy [RC] ASDIRECTED 11/21/17 16:11 EKG Documentation Completion [RC] STAT
[2017-11-21 16:37] LABS: CHLORIDE,CL 110 mmol/L (98-107); SODIUM,NA 143 mmol/L (136-148)
[2017-11-21] MEDS ORDERED: Sodium Polystyrene Sulfonate 15 GM/60 ML Susp 60 ML Bot PO ONE ×2 (16:47→18:26)
[2017-11-21] MEDS ORDERED: Fluticasone Propionate Nasal Spray 16 GM Bottle NASBOTH PRN (16:51)
[2017-11-21] MEDS ORDERED: Acetaminophen 500 MG Tab PO PRN (17:08)
[2017-11-21] MEDS ORDERED: Loratadine 10 MG Tab PO PRN (17:15)
[2017-11-21] MEDS ORDERED: Sodium Bicarbonate 650 MG Tab PO SCH ×2 (17:30→21:00)
[2017-11-21] MEDS ORDERED: Diltiazem 25 MG/5 ML SDV ONE (18:12)
[2017-11-21] MEDS ORDERED: Temazepam 15 MG Cap PO PRN (18:14)
[2017-11-21] MEDS ORDERED: Morphine 10 MG/ML Syringe IVPUSH PRN (18:14)
[2017-11-21] MEDS: Magnesium Oxide 400 MG Tab PO SCH (18:57)
[2017-11-21] MEDS ORDERED: Warfarin 2.5 MG Tab PO ONE (19:00)
[2017-11-21] MEDS: metroNIDAZOLE/Normal Saline 500 MG in Premix Bag 1 BAG IV SCH (19:33)
[2017-11-21] MEDS: Acyclovir 200 MG Cap PO SCH (20:07)
[2017-11-21] MEDS: Albuterol/Ipratropium 3.0-0.5 MG/3 ML Neb Soln NEB PRN (20:08)
[2017-11-21] MEDS: Pregabalin 200 MG Cap PO SCH (20:09)
--- NOTE | 2017-11-21 20:32 | PCM.SN ---
- Free Text/Narrative Note: #[id number]
[2017-11-21] MEDS: Hydrocortisone Sodium Succinate 100 MG/2 ML SDV IVPUSH SCH (20:36)
[2017-11-21] MEDS ORDERED: Warfarin 5 MG Tab PO SCH (21:00)
[2017-11-21] MEDS ORDERED: Nitroglycerin 2% Oint 1 GM UD Packet TOP PRN (21:00)
[2017-11-21] MEDS ORDERED: Furosemide 40 MG/4 ML VIAL IVPUSH SCH (21:00)
[2017-11-22] MEDS ORDERED: metroNIDAZOLE/Normal Saline 250 MG in Premix Bag 1 BAG IV SCH ×2
[2017-11-22] MEDS: Magnesium Oxide 400 MG Tab PO SCH ×4 (00:06→17:07)
[2017-11-22] MEDS: Albuterol/Ipratropium 3.0-0.5 MG/3 ML Neb Soln NEB PRN ×4 (00:06→15:08)
[2017-11-22] MEDS: metroNIDAZOLE/Normal Saline 500 MG in Premix Bag 1 BAG IV SCH ×2 (02:29→11:14)
[2017-11-22] MEDS: Hydrocortisone Sodium Succinate 100 MG/2 ML SDV IVPUSH SCH ×2 (02:29→07:58)
--- NOTE | 2017-11-22 02:46 | HP ---
DATE OF : 1950 PRIMARY CARE PHYSICIAN: Ubaldo Acosta CHIEF COMPLAIN: Shortness of breath, sinus pressure. HISTORY OF PRESENT ILLNESS: The patient is a 67-year-old man with a past medical history of Non-Hodgkin's lymphoma, diagnosed in 2000, in remission for the past 11 or 12 years, came back 4 years ago. He presented to the emergency room because of shortness of breath, wheezing, also sinus pressure, and the patient had a chest tightness. He felt he cannot breath. The patient states that he has had sinus pressure and frontal and maxillary. Also, green nasal discharge. Could not breath through the nose for one month. Currently, he does have green nasal discharge. He states that since he came to the emergency room, he was able to breath through his nose In the emergency room, he saturating at 89% on room air. He states that his symptoms started for the past two months, and he has problem for the past two months with his sinuses and was on 20 days course of Levaquin every other day for sinus infection. He has green discharge from his nose and also received antiallergic medication and fluticasone, but his symptoms did not resolve. He denies any history of heart failure. He has chronic kidney disease with his baseline creatinine at 3.6he follows up with Dr. Urban, and he his left kidney is not functioning since he was sick with non Hodgkin lymphoma. As per patient, he lost the kidney due to lymphoma and chemotherapy. He lymphoma was in remission for 11 to 12 years. He used to have lymph nodes in the supraclavicular fossa, right, and also on the neck, and his lymphoma came back 4 years ago stage IV, and he was on treatment with lenalidomide 10 mg p.o. daily until two months ago when he stopped his medication as per his oncologist Dr. Brown. The patient is also on treatment with Warfarin for history of pulmonary embolism, and currently his INR is subtherapeutic at 1.56. In the emergency room, he was found to be in atrial fibrillation and to have a heart rate of 131. PAST MEDICAL HISTORY: The patient is status post stem cell transplant in 1999 and 2000 for a non- Hodgkin's lymphoma, stage IV. He was in remission for Hodgkin lymphoma 11 to 12 years, but then his non-Hodgkin's lymphoma came back 4 years ago. He has atrophy of the left kidney. He has stage 4 chronic kidney disease. PAST SURGICAL HISTORY: He had a fistula for dialysis, placed last year on his left arm. ALLERGIES: No known drug allergies. SOCIAL HISTORY: He never smoked. Alcohol occasionally. Has not drank alcohol at all for the past three years, and has no history of drug use. He used to work as a earl FAMILY HISTORY: His mother had stomach problems. Father had bladder cancer and of bladder cancer. He was not a smoker. . PHYSICAL EXAMINATION: VITAL SIGNS: At Admission, temperature 97.2, pulse rate 138, and blood pressure 150/64, oxygen saturation by pulse oximetry 89. HEENT: Head is atraumatic and normocephalic. Pupils equal, round, reactive to light. Throat, no erythema. Tympanic membrane are clear. Palpation over the maxillary and frontal sinuses, no tenderness. NECK: Supple. No thyromegaly. Positive JVD. No lymphadenopathy. Supraclavicular fossa, no lymphadenopathy. HEART: S1 and S2. Regular rhythm and rate. Tachycardic. LUNGS: Bilateral wheezing, inspiratory and expiratory. Thorax, no deformities. ABDOMEN: Globulus. Positive bowel sounds. Nontender. EXTREMITIES: 3+ pitting edema. LABORATORY DATA: At admission, WBC 6.35, hemoglobin 9.7, hematocrit 30.1, MCV 109.1, platelet count 68, neutrophils 87.3, lymphocytes of 5. INR 1.56. Potassium 5.3, chloride 110, CO2 of 23.9, BUN 33, creatinine 3.8, estimated creatinine clearance 16.56. Glucose 125, calcium 8. Total bilirubin 0.4, AST 15, ALT 30, alkaline phosphatase 111. Troponin less than 0.050. BNP 1510. Protein 6.4, albumin 3.5, globulin 2.9, albumin to globulin ratio 1.2. TSH is 1.69. Urinalysis; urine color is yellow; appearance is clear; pH of 7; urine specific gravity 1.015; urine protein 30; urine glucose 250; urine ketones, negative; urine occult blood, small; urine wbc's between 0 and 2; leukocyte esterase, negative; and nitrite is negative. Chest x-ray shows finding consistent with CHF. EKG showed atrial fibrillation at the rate of 131, and low voltage extremity leads anteroseptal infarct and nonspecific repolarization abnormalities, diffuse leads, ST-depression, T-wave flattening/negative anterolateral and inferior leads. Prolonged QT interval. QTc is 508. ASSESSMENT: 1. Hypoxia. 2. Congestive heart failure. 3. Atrial fibrillation with rapid ventricular rate. 4. Chronic kidney disease, stage IV. 5. Non-Hodgkin's lymphoma. 6. Long QT. 7. Abnormal EKG with ischemic changes. 8. Sinusitis, chronic. 9. Morbid obesity. 10.Chest tightness, rule out acute coronary syndrome. 11.Thrombocytopenia. 12.Macrocytic anemia. 13.Chronic anticoagulation with subtherapeutic INR. 14.Hyperkalemia. PLAN: We will admit the patient to ICU with Cardizem drip, and will give patient Lasix 40 mg IV q.12 hours, and we will supplement electrolytes, we will monitor magnesium and phosphorus levels, I and O, and daily weight. Followup chest x- ray. For hypoxia, we will supplement the patient's oxygen. Subtherapeutic INR, we will continue patient with warfarin as per pharmacy recommendations. For macrocytic anemia, we will order a vitamin B12 level and folate level. Also, we will do iron status for anemia , erythropoietin level. For hyperkalemia, patient received Kayexalate. We will follow up potassium level. For thrombocytopenia, we will follow up platelet count. For chronic kidney disease, stage IV, we will monitor kidney function. For the lymphoma, we will consult Dr. Brown, and we will inform about the patient hospitalization. For wheezing and congestive heart failure, we will put the patient on Solu-Medrol 60 mg IV q.6 hours, and we will give the patient DuoNeb nebulizer treatment q.4 hours, and we will diurese the patient, CT chest . His wheezing is possibly due to congestive heart failure or asthma exacerbation or due to possible lymphoma. For deep vein thrombosis prophylaxis, will put on SCDs. For GI prophylaxis, omeprazole. For neuropathy, we will give patient Lyrica 200 mg p.o. b.i.d. ANTOPET / MODL /[id number] SALAS
[2017-11-22] MEDS ORDERED: Furosemide 40 MG/4 ML VIAL IVPUSH SCH (08:00)
[2017-11-22] MEDS: Acyclovir 200 MG Cap PO SCH (08:26)
[2017-11-22] MEDS: Pregabalin 200 MG Cap PO SCH (08:26)
[2017-11-22] MEDS ORDERED: Omeprazole 20 MG Cap.CR PO SCH (09:00)
[2017-11-22] MEDS ORDERED: Montelukast 10 MG Tab PO SCH (09:00)
[2017-11-22] MEDS ORDERED: Non-Formulary Medication 1 Each (Lenalidomide [Revlimid] 10 MG) PO SCH (09:00)
[2017-11-22] MEDS ORDERED: Cholecalciferol (Vitamin D3) 1,000 Unit Tab PO SCH (09:00)
[2017-11-22] MEDS ORDERED: methylPREDNISolone Sodium Succinate 40 MG/1 ML SDV IVPUSH SCH ×2 (09:45→14:00)
--- NOTE | 2017-11-22 10:27 | PCM.PN ---
Addendum entered and electronically signed by Joana Huddleston MD 11/22/17 19: 03: Patient seen and examined agree with assessment and plan Addendum entered and electronically signed by Jarod Yost MD 11/22/17 10:36: To correct #4 on assessment, patient does not have a diagnosis of COPD. Bilateral wheezing appreciated likely secondary to bronchitis, or cardiac etiology. Original Note: - General Info Date of Service: 11/22/17 Subjective Update: Ongoing shortness of breath on 0.5L via NC. He denies any chest pain, headache, nausea or vomiting. Chest CT indicates bilateral pulmonary edema. - Review of Systems General: Reports: Other (see hpi) - Patient Data Vitals - Most Recent: Last Vital Signs Temp 36.1 C 11/22/17 08:00 Pulse 105 H 11/21/17 19:00 Resp 16 11/22/17 10:00 BP 107/65 11/22/17 10:00 Pulse Ox 95 11/22/17 10:00 Weight - Most Recent: 94.801 kg I&O - Last 24 Hours: Intake & Output 11/21/17 11/22/17 11/22/17 22:59 06:59 14:59 Intake Total 200 750 Output Total 200 1475 Balance 0 -725 Lab Results Last 24 Hours: Laboratory Results - last 24 hr 11/21/17 11/21/17 11/21/17 Range/Units 15:45 15:45 15:45 WBC 6.35 (4.0-11.0) K/uL RBC 2.76 L (4.50-5.90) M/uL Hgb 9.7 L (13.0-17.0) g/dL Hct 30.1 L (38.0-50.0) % MCV 109.1 H (80.0-98.0) fL MCH 35.1 H (27.0-32.0) pg MCHC 32.2 (31.0-37.0) g/dL RDW Std Deviation 75.6 H (28.0-62.0) fl RDW Coeff of Landry 19 H (11.0-15.0) % Plt Count 68 L (150-400) K/uL MPV 10.10 (7.40-12.00) fL Neut % (Auto) 87.3 H (48.0-80.0) % Lymph % (Auto) 5.0 L (16.0-40.0) % [place] % (Auto) 6.5 (0.0-15.0) % Eos % (Auto) 0.9 (0.0-7.0) % Baso % (Auto) 0.3 (0.0-1.5) % Neut # (Auto) 5.5 (1.4-5.7) K/uL Lymph # (Auto) 0.3 L (0.6-2.4) K/uL [place] # (Auto) 0.4 (0.0-0.8) K/uL Eos # (Auto) 0.1 (0.0-0.7) K/uL Baso # (Auto) 0.0 (0.0-0.1) K/uL Nucleated RBC % 0.0 /100WBC Nucleated RBCs # 0 K/uL INR Sodium 143 (136-148) mmol/L Potassium 5.3 H (3.5-5.1) mmol/L Chloride 110 H (98-107) mmol/L Carbon Dioxide 23.9 (21.0-32.0) mmol/L BUN 33 H (7.0-18.0) mg/dL Creatinine 3.8 H (0.8-1.3) mg/dL Est Cr Clr Drug Dosing 16.56 mL/min Estimated GFR (MDRD) 15.9 ml/min Glucose 125 H (74-106) mg/dL Calcium 8.0 L (8.5-10.1) mg/dL Phosphorus (2.6-4.7) mg/dL Magnesium (1.8-2.4) mg/dL Iron (50-175) ug/dL TIBC (250-450) ug/dL % Saturation (20-55) % Total Bilirubin 0.4 (0.2-1.0) mg/dL AST 15 (15-37) IU/L ALT 20 (14-63) IU/L Alkaline Phosphatase 111 (46-116) U/L Troponin I < 0.050 (0.000-0.056) ng/mL B-Natriuretic Peptide 1510 H (<100) PG/ML Total Protein 6.4 (6.4-8.2) g/dL Albumin 3.5 (3.4-5.0) g/dL Globulin 2.9 (2.0-3.5) g/dL Albumin/Globulin Ratio 1.2 L (1.3-2.8) Vitamin B12 (193-986) pg/mL Folate (8.60-58.90) ng/mL TSH 3rd Generation (0.36-3.74) uIU/mL Urine Color Urine Appearance Urine pH (5.0-8.0) Ur Specific [place] (1.001-1.035) Urine Protein (NEGATIVE) mg/dL Urine Glucose (UA) (NEGATIVE) mg/dL Urine Ketones (NEGATIVE) mg/dL Urine Occult Blood (NEGATIVE) Urine Nitrite (NEGATIVE) Urine Bilirubin (NEGATIVE) Urine Urobilinogen (<2.0) EU/dL Ur Leukocyte Esterase (NEGATIVE) Urine RBC (0-2/HPF) Urine WBC (0-5/HPF) Ur Epithelial Cells (NONE-FEW) Urine Bacteria (NEGATIVE) 11/21/17 11/21/17 11/21/17 Range/Units 15:45 15:45 17:01 WBC (4.0-11.0) K/uL RBC (4.50-5.90) M/uL Hgb (13.0-17.0) g/dL Hct (38.0-50.0) % MCV (80.0-98.0) fL MCH (27.0-32.0) pg MCHC (31.0-37.0) g/dL RDW Std Deviation (28.0-62.0) fl RDW Coeff of Landry (11.0-15.0) % Plt Count (150-400) K/uL MPV (7.40-12.00) fL Neut % (Auto) (48.0-80.0) % Lymph % (Auto) (16.0-40.0) % [place] % (Auto) (0.0-15.0) % Eos % (Auto) (0.0-7.0) % Baso % (Auto) (0.0-1.5) % Neut # (Auto) (1.4-5.7) K/uL Lymph # (Auto) (0.6-2.4) K/uL [place] # (Auto) (0.0-0.8) K/uL Eos # (Auto) (0.0-0.7) K/uL Baso # (Auto) (0.0-0.1) K/uL Nucleated RBC % /100WBC Nucleated RBCs # K/uL INR 1.56 Sodium (136-148) mmol/L Potassium (3.5-5.1) mmol/L Chloride (98-107) mmol/L Carbon Dioxide (21.0-32.0) mmol/L BUN (7.0-18.0) mg/dL Creatinine (0.8-1.3) mg/dL Est Cr Clr Drug Dosing mL/min Estimated GFR (MDRD) ml/min Glucose (74-106) mg/dL Calcium (8.5-10.1) mg/dL Phosphorus (2.6-4.7) mg/dL Magnesium (1.8-2.4) mg/dL Iron (50-175) ug/dL TIBC (250-450) ug/dL % Saturation (20-55) % Total Bilirubin (0.2-1.0) mg/dL AST (15-37) IU/L ALT (14-63) IU/L Alkaline Phosphatase (46-116) U/L Troponin I (0.000-0.056) ng/mL B-Natriuretic Peptide (<100) PG/ML Total Protein (6.4-8.2) g/dL Albumin (3.4-5.0) g/dL Globulin (2.0-3.5) g/dL Albumin/Globulin Ratio (1.3-2.8) Vitamin B12 (193-986) pg/mL Folate (8.60-58.90) ng/mL TSH 3rd Generation 1.69 (0.36-3.74) uIU/mL Urine Color YELLOW Urine Appearance CLEAR Urine pH 7.0 (5.0-8.0) Ur Specific [place] 1.015 (1.001-1.035) Urine Protein 30 (NEGATIVE) mg/dL Urine Glucose (UA) 250 H (NEGATIVE) mg/dL Urine Ketones NEGATIVE (NEGATIVE) mg/dL Urine Occult Blood SMALL H (NEGATIVE) Urine Nitrite NEGATIVE (NEGATIVE) Urine Bilirubin NEGATIVE (NEGATIVE) Urine Urobilinogen 0.2 (<2.0) EU/dL Ur Leukocyte Esterase NEGATIVE (NEGATIVE) Urine RBC 0-2 (0-2/HPF) Urine WBC 0-2 (0-5/HPF) Ur Epithelial Cells FEW (NONE-FEW) Urine Bacteria FEW (NEGATIVE) 11/21/17 11/21/17 11/22/17 Range/Units 21:26 21:26 02:35 WBC (4.0-11.0) K/uL RBC (4.50-5.90) M/uL Hgb (13.0-17.0) g/dL Hct (38.0-50.0) % MCV (80.0-98.0) fL MCH (27.0-32.0) pg MCHC (31.0-37.0) g/dL RDW Std Deviation (28.0-62.0) fl RDW Coeff of Landry (11.0-15.0) % Plt Count (150-400) K/uL MPV (7.40-12.00) fL Neut % (Auto) (48.0-80.0) % Lymph % (Auto) (16.0-40.0) % [place] % (Auto) (0.0-15.0) % Eos % (Auto) (0.0-7.0) % Baso % (Auto) (0.0-1.5) % Neut # (Auto) (1.4-5.7) K/uL Lymph # (Auto) (0.6-2.4) K/uL [place] # (Auto) (0.0-0.8) K/uL Eos # (Auto) (0.0-0.7) K/uL Baso # (Auto) (0.0-0.1) K/uL Nucleated RBC % /100WBC Nucleated RBCs # K/uL INR Sodium (136-148) mmol/L Potassium 5.0 (3.5-5.1) mmol/L Chloride (98-107) mmol/L Carbon Dioxide (21.0-32.0) mmol/L BUN (7.0-18.0) mg/dL Creatinine (0.8-1.3) mg/dL Est Cr Clr Drug Dosing mL/min Estimated GFR (MDRD) ml/min Glucose (74-106) mg/dL Calcium (8.5-10.1) mg/dL Phosphorus 4.4 (2.6-4.7) mg/dL Magnesium 2.1 (1.8-2.4) mg/dL Iron (50-175) ug/dL TIBC (250-450) ug/dL % Saturation (20-55) % Total Bilirubin (0.2-1.0) mg/dL AST (15-37) IU/L ALT (14-63) IU/L Alkaline Phosphatase (46-116) U/L Troponin I < 0.050 (0.000-0.056) ng/mL B-Natriuretic Peptide (<100) PG/ML Total Protein (6.4-8.2) g/dL Albumin (3.4-5.0) g/dL Globulin (2.0-3.5) g/dL Albumin/Globulin Ratio (1.3-2.8) Vitamin B12 333 (193-986) pg/mL Folate (8.60-58.90) ng/mL TSH 3rd Generation (0.36-3.74) uIU/mL Urine Color Urine Appearance Urine pH (5.0-8.0) Ur Specific [place] (1.001-1.035) Urine Protein (NEGATIVE) mg/dL Urine Glucose (UA) (NEGATIVE) mg/dL Urine Ketones (NEGATIVE) mg/dL Urine Occult Blood (NEGATIVE) Urine Nitrite (NEGATIVE) Urine Bilirubin (NEGATIVE) Urine Urobilinogen (<2.0) EU/dL Ur Leukocyte Esterase (NEGATIVE) Urine RBC (0-2/HPF) Urine WBC (0-5/HPF) Ur Epithelial Cells (NONE-FEW) Urine Bacteria (NEGATIVE) 11/22/17 11/22/17 11/22/17 Range/Units 02:35 02:35 02:35 WBC (4.0-11.0) K/uL RBC (4.50-5.90) M/uL Hgb (13.0-17.0) g/dL Hct (38.0-50.0) % MCV (80.0-98.0) fL MCH (27.0-32.0) pg MCHC (31.0-37.0) g/dL RDW Std Deviation (28.0-62.0) fl RDW Coeff of Landry (11.0-15.0) % Plt Count (150-400) K/uL MPV (7.40-12.00) fL Neut % (Auto) (48.0-80.0) % Lymph % (Auto) (16.0-40.0) % [place] % (Auto) (0.0-15.0) % Eos % (Auto) (0.0-7.0) % Baso % (Auto) (0.0-1.5) % Neut # (Auto) (1.4-5.7) K/uL Lymph # (Auto) (0.6-2.4) K/uL [place] # (Auto) (0.0-0.8) K/uL Eos # (Auto) (0.0-0.7) K/uL Baso # (Auto) (0.0-0.1) K/uL Nucleated RBC % /100WBC Nucleated RBCs # K/uL INR Sodium 144 (136-148) mmol/L Potassium 5.1 (3.5-5.1) mmol/L Chloride 110 H (98-107) mmol/L Carbon Dioxide 25.3 (21.0-32.0) mmol/L BUN 34 H (7.0-18.0) mg/dL Creatinine 4.2 H (0.8-1.3) mg/dL Est Cr Clr Drug Dosing 12.08 mL/min Estimated GFR (MDRD) 14.1 ml/min Glucose 163 H (74-106) mg/dL Calcium 7.4 L (8.5-10.1) mg/dL Phosphorus 4.4 (2.6-4.7) mg/dL Magnesium 2.0 (1.8-2.4) mg/dL Iron 24 L 24 L (50-175) ug/dL TIBC 196 L (250-450) ug/dL % Saturation 12.24 L (20-55) % Total Bilirubin 0.4 (0.2-1.0) mg/dL AST 12 L (15-37) IU/L ALT 18 (14-63) IU/L Alkaline Phosphatase 100 (46-116) U/L Troponin I (0.000-0.056) ng/mL B-Natriuretic Peptide (<100) PG/ML Total Protein 5.6 L (6.4-8.2) g/dL Albumin 3.2 L (3.4-5.0) g/dL Globulin 2.4 (2.0-3.5) g/dL Albumin/Globulin Ratio 1.3 (1.3-2.8) Vitamin B12 (193-986) pg/mL Folate 12.10 (8.60-58.90) ng/mL TSH 3rd Generation (0.36-3.74) uIU/mL Urine Color Urine Appearance Urine pH (5.0-8.0) Ur Specific [place] (1.001-1.035) Urine Protein (NEGATIVE) mg/dL Urine Glucose (UA) (NEGATIVE) mg/dL Urine Ketones (NEGATIVE) mg/dL Urine Occult Blood (NEGATIVE) Urine Nitrite (NEGATIVE) Urine Bilirubin (NEGATIVE) Urine Urobilinogen (<2.0) EU/dL Ur Leukocyte Esterase (NEGATIVE) Urine RBC (0-2/HPF) Urine WBC (0-5/HPF) Ur Epithelial Cells (NONE-FEW) Urine Bacteria (NEGATIVE) 11/22/17 11/22/17 11/22/17 Range/Units 02:35 02:35 02:35 WBC 7.19 (4.0-11.0) K/uL RBC 2.50 L (4.50-5.90) M/uL Hgb 8.7 L (13.0-17.0) g/dL Hct 27.6 L (38.0-50.0) % MCV 110.4 H (80.0-98.0) fL MCH 34.8 H (27.0-32.0) pg MCHC 31.5 (31.0-37.0) g/dL RDW Std Deviation 75.6 H (28.0-62.0) fl RDW Coeff of Landry 19 H (11.0-15.0) % Plt Count 62 L (150-400) K/uL MPV 10.60 (7.40-12.00) fL Neut % (Auto) (48.0-80.0) % Lymph % (Auto) (16.0-40.0) % [place] % (Auto) (0.0-15.0) % Eos % (Auto) (0.0-7.0) % Baso % (Auto) (0.0-1.5) % Neut # (Auto) (1.4-5.7) K/uL Lymph # (Auto) (0.6-2.4) K/uL [place] # (Auto) (0.0-0.8) K/uL Eos # (Auto) (0.0-0.7) K/uL Baso # (Auto) (0.0-0.1) K/uL Nucleated RBC % 0.0 /100WBC Nucleated RBCs # 0 K/uL INR 1.61 Sodium (136-148) mmol/L Potassium (3.5-5.1) mmol/L Chloride (98-107) mmol/L Carbon Dioxide (21.0-32.0) mmol/L BUN (7.0-18.0) mg/dL Creatinine (0.8-1.3) mg/dL Est Cr Clr Drug Dosing mL/min Estimated GFR (MDRD) ml/min Glucose (74-106) mg/dL Calcium (8.5-10.1) mg/dL Phosphorus (2.6-4.7) mg/dL Magnesium (1.8-2.4) mg/dL Iron (50-175) ug/dL TIBC (250-450) ug/dL % Saturation (20-55) % Total Bilirubin (0.2-1.0) mg/dL AST (15-37) IU/L ALT (14-63) IU/L Alkaline Phosphatase (46-116) U/L Troponin I < 0.050 (0.000-0.056) ng/mL B-Natriuretic Peptide (<100) PG/ML Total Protein (6.4-8.2) g/dL Albumin (3.4-5.0) g/dL Globulin (2.0-3.5) g/dL Albumin/Globulin Ratio (1.3-2.8) Vitamin B12 (193-986) pg/mL Folate (8.60-58.90) ng/mL TSH 3rd Generation (0.36-3.74) uIU/mL Urine Color Urine Appearance Urine pH (5.0-8.0) Ur Specific [place] (1.001-1.035) Urine Protein (NEGATIVE) mg/dL Urine Glucose (UA) (NEGATIVE) mg/dL Urine Ketones (NEGATIVE) mg/dL Urine Occult Blood (NEGATIVE) Urine Nitrite (NEGATIVE) Urine Bilirubin (NEGATIVE) Urine Urobilinogen (<2.0) EU/dL Ur Leukocyte Esterase (NEGATIVE) Urine RBC (0-2/HPF) Urine WBC (0-5/HPF) Ur Epithelial Cells (NONE-FEW) Urine Bacteria (NEGATIVE) Med Orders - Current: Current Medications Acetaminophen (Tylenol Extra Strength) 500 mg PO TID PRN PRN Reason: PAIN Acyclovir (Zovirax) 400 mg PO BID [facility] Last Admin: 11/22/17 08:26 Dose: 400 mg Albuterol/Ipratropium (Duoneb 3.0-0.5 Mg/3 Ml) 3 ml NEB Q4HRRT PRN PRN Reason: wheezes Last Admin: 11/22/17 07:48 Dose: 3 ml Calcitriol (Rocaltrol) 0.25 mcg PO Q2D@0900 [facility] Cholecalciferol (Vitamin D3) 2,000 units PO DAILY [facility] Last Admin: 11/22/17 08:26 Dose: 2,000 units Ferrous Sulfate (Ferrous Sulfate) 325 mg PO TIDMEALS [facility] Fluticasone Propionate (Flonase) 0 gm NASBOTH DAILY PRN PRN Reason: Allergies Last Admin: 11/21/17 19:32 Dose: 1 spray Furosemide (Lasix) 40 mg IVPUSH BIDDIURETIC JAYRO Last Admin: 11/22/17 07:58 Dose: 40 mg Diltiazem HCl 125 mg/ Sodium (Chloride) 125 mls @ 5 mls/hr IV NOW ONE; Protocol Stop: 11/22/17 17:19 Last Infusion: 11/21/17 22:00 Dose: 0 mg/hr, 0 mls/hr Metronidazole 500 mg/ Premix 100 mls @ 100 mls/hr IV Q8H [facility] Last Admin: 11/22/17 02:29 Dose: 100 mls/hr Amiodarone HCl/Dextrose (Nexterone In Dextrose 360 Mg/200 Ml) 360 mg in 200 mls @ 33.333 mls/hr IV ASDIRECTED [facility]; Protocol Last Admin: 11/22/17 08:36 Dose: 1 mg/min, 33.333 mls/hr Ceftriaxone Sodium 1,000 mg/ (Sodium Chloride) 100 mls @ 400 mls/hr IV Q24H [facility] Levalbuterol HCl (Xopenex) 0.63 mg NEB Q8H [facility] Loratadine (Claritin) 10 mg PO DAILY PRN PRN Reason: ALLERGIES Magnesium Oxide (Magnesium Oxide) 400 mg PO QID [facility] Last Admin: 11/22/17 05:30 Dose: 400 mg Methylprednisolone Sodium Succinate (Solu-Medrol) 60 mg IVPUSH Q6H [facility] Morphine Sulfate (Morphine) 2 mg IVPUSH Q2H PRN PRN Reason: Pain (severe 7-10) Stop: 11/22/17 18:16 Nitroglycerin (Nitro-Bid 2%) 1 gm TOP Q6H PRN PRN Reason: Chest Pain Non-Formulary Medication (Lenalidomide [Revlimid]) 10 mg PO DAILY [facility] Omeprazole (Omeprazole) 20 mg PO DAILY [facility] Last Admin: 11/22/17 08:26 Dose: 20 mg Pregabalin (Lyrica) 200 mg PO BID [facility] Last Admin: 11/22/17 08:26 Dose: 200 mg Sodium Chloride (Saline Flush) 10 ml FLUSH ASDIRECTED PRN PRN Reason: Keep Vein Open Last Admin: 11/21/17 16:23 Dose: 10 ml Sodium Chloride (Saline Flush) 2.5 ml FLUSH ASDIRECTED PRN PRN Reason: Keep Vein Open Sodium Chloride (Saline Flush) 10 ml FLUSH ASDIRECTED PRN PRN Reason: Keep Vein Open Sodium Chloride (Saline Flush) 2.5 ml FLUSH ASDIRECTED PRN PRN Reason: Keep Vein Open Temazepam (Restoril) 15 mg PO BEDTIME PRN PRN Reason: Sleep Last Admin: 11/21/17 21:26 Dose: 15 mg Discontinued Medications Albuterol (Proventil Neb Soln) 2.5 mg NEB ONETIME ONE Stop: 11/21/17 15:55 Last Admin: 11/21/17 16:03 Dose: 2.5 mg Albuterol/Ipratropium (Duoneb 3.0-0.5 Mg/3 Ml) 3 ml NEB ONETIME ONE Stop: 11/21/17 15:20 Last Admin: 11/21/17 15:30 Dose: 3 ml Diltiazem HCl (Diltiazem) 10 mg IVPUSH ONETIME ONE Stop: 11/21/17 16:18 Last Admin: 11/21/17 16:28 Dose: 10 mg Diltiazem HCl (Diltiazem) 10 mg IVPUSH ONETIME ONE Stop: 11/21/17 18:02 Last Admin: 11/21/17 18:10 Dose: Not Given Diltiazem HCl (Diltiazem) 5 mg IVPUSH ONETIME ONE Stop: 11/21/17 18:09 Last Admin: 11/21/17 18:12 Dose: 5 mg Diltiazem HCl (Diltiazem) Confirm Administered Dose 25 mg .ROUTE .STK-MED ONE Stop: 11/21/17 18:13 Last Admin: 11/21/17 18:26 Dose: Not Given Furosemide (Lasix) 40 mg IVPUSH NOW ONE Stop: 11/21/17 16:12 Last Admin: 11/21/17 16:18 Dose: 40 mg Furosemide (Lasix) 40 mg IVPUSH BID [facility] Last Admin: 11/21/17 20:35 Dose: 40 mg Hydrocortisone Sodium Succinate (Solu-Cortef) 60 mg IVPUSH Q6H [facility] Last Admin: 11/22/17 07:58 Dose: 60 mg Metronidazole 250 mg/ Premix 50 mls @ 50 mls/hr IV QID [facility] Ceftriaxone Sodium 1,000 mg/ (Sodium Chloride) 100 mls @ 400 mls/hr IV Q24H [facility] Last Admin: 11/21/17 20:37 Dose: 400 mls/hr Amiodarone HCl/Dextrose (Nexterone In Dextrose 150 Mg/100 Ml) 100 mls @ 600 mls /hr IV ONETIME ONE; Protocol Stop: 11/22/17 06:57 Last Admin: 11/22/17 08:24 Dose: 600 mls/hr Methylprednisolone Sodium Succinate (Solu-Medrol) 60 mg IVPUSH Q6H [facility] Last Admin: 11/22/17 10:07 Dose: Not Given Montelukast Sodium (Singulair) 10 mg PO DAILY [facility] Last Admin: 11/22/17 08:26 Dose: Not Given Prednisone (Prednisone) 60 mg PO ONETIME ONE Stop: 11/21/17 15:21 Last Admin: 11/21/17 16:03 Dose: Not Given Sodium Bicarbonate (Sodium Bicarbonate) 650 mg PO BEDTIME [facility] Sodium Bicarbonate (Sodium Bicarbonate) 1,300 mg PO TIDMEALS [facility] Last Admin: 11/21/17 19:35 Dose: Not Given Sodium Polystyrene Sulfonate (Kayexalate) 15 gm PO ONETIME ONE Stop: 11/21/17 16:48 Last Admin: 11/21/17 17:01 Dose: 15 gm Sodium Polystyrene Sulfonate (Kayexalate) 45 gm PO NOW ONE Stop: 11/21/17 18:27 Last Admin: 11/21/17 18:57 Dose: Not Given Warfarin Sodium (Coumadin) 2.5 mg PO MOWEFR@2100 [facility] Warfarin Sodium (Coumadin) 5 mg PO SUTUTHSA@2100 J[facility]RO Warfarin Sodium (Coumadin Ask) 1 each PO ONETIME ONE Stop: 11/21/17 18:25 Last Admin: 11/21/17 21:02 Dose: Not Given Warfarin Sodium (Coumadin) 7.5 mg PO ONETIME ONE Stop: 11/21/17 19:01 Last Admin: 11/21/17 19:32 Dose: 7.5 mg - Exam Quality Assessment: Supplemental Oxygen General: Alert, Oriented HEENT: Pupils Equal Neck: Supple Lungs: Other (bilateral wheezing in all lung [place]) Cardiovascular: Irregular Rhythm GI/Abdominal Exam: Normal Bowel Sounds, Soft Back Exam: Normal Inspection, Full Range of Motion. No: CVA Tenderness (L), CVA Tenderness (R) Extremities: Other (bilateral 2+ edema in lower extremities) Skin: Warm Psy/Mental Status: Alert - Problem List Review Problem List Initiated/Reviewed/Updated: Yes - My Orders Last 24 Hours: My Active Orders 11/22/17 09:06 RT Aerosol Therapy [RC] ASDIRECTED 11/22/17 09:22 Chest 1V Frontal [CR] Stat 11/22/17 14:00 Levalbuterol HCl [Xopenex] 0.63 mg NEB Q8H - Plan Plan:: Assessment: #1. Atrial fibrillation w/ RVR #2. Acute on chronic kidney disease #3. CHF #4. COPD #5. Thrombocytopenia #6. Chronic anticoagulant use #7. Hypotension #8. Tachycardia secondary to #1 #9. Hypoxia Plan: #1. Discontinue cardizem, has been started on amiodarone drip given hypotension and persistent tachycardia #2. As per attending, coumadin is being stopped because of thrombocytopenia #3. Increase lasix to IV 100mg BID. Nephrology was consulted on the case, who recommend to increase diuresis and to closely monitor kidney function, and amount of diuresis. He will not be transferred as of now. #4. Start xopenex for ongoing wheezing #5. Consult cardiology for recommendations in management of A. Fib.
[2017-11-22] MEDS ORDERED: Furosemide 20 MG/2 ML VIAL IVPUSH ONE (10:34)
[2017-11-22] MEDS ORDERED: Digoxin 500 MCG/2 ML Amp IVPUSH ONE (11:03)
[2017-11-22] MEDS: Ferrous Sulfate 325 MG Tab PO SCH ×2 (11:06→17:07)
[2017-11-22] MEDS: Diltiazem IR 30 MG Tab PO SCH ×2 (11:06→17:07)
--- NOTE | 2017-11-22 11:40 | US ---
EXAMINATION: Renal ultrasound HISTORY: Kidney failure COMPARISON: CT dated 06/09/2017 TECHNIQUE: Grayscale and color Doppler images obtained of the kidneys and bladder. FINDINGS: The right kidney is notably atrophy and not well characterized sonographically. 3 known per ipelvic cysts again noted. The left kidney measures 10.5 cm [id number] without evidence of hydronep hrosis. The renal cortical echotexture is increased. Urinary bladder appears normal. IMPRESSION: 1. No definite evidence of hydronephrosis. 2. Notably atrophied right kidney. 3. The left kidney is echogenic, correlate for medical renal disease.
[2017-11-22] MEDS ORDERED: Levalbuterol HCl 0.63 MG/3 ML Neb NEB SCH (14:00)
[2017-11-22] MEDS ORDERED: Meropenem 500 MG in Sodium Chloride 0.9% 100 ML IV SCH (15:00)
--- NOTE | 2017-11-22 15:03 | CR ---
EXAMINATION: Portable chest radiograph. HISTORY: CHF. FINDINGS: The trachea is midline. The heart is borderline in size. Right-sided portacatheter noted. Persistent bibasilar infiltrates. Left perihilar atelectasis. No pneumothorax. Osseous structures appear unremarkable. IMPRESSION: Mildly persistent bibasilar infiltrates consistent with CHF exacerbation.
--- NOTE | 2017-11-22 15:27 | PCM.DCSUM1 ---
<Jarod Yost - Last Filed: 11/22/17 15:17> Discharge Summary - Hospital Course Free Text/Narrative:: Admission date: 11/21/2017 Discharge date: 11/22/2017 Admission diagnosis: #1. A. Fib with RVR #2. Acute on CKD #3. CHF #4. Thrombocytopenia #5. Shortness of breath #6. History of Non-Hodgkins Lymphoma Discharge diagnosis: #1. A. Fib with RVR #2. Acute on CKD #3. CHF #4. Thrombocytopenia #5. Shortness of breath #6. Acute hypoxic respiratory failure #7. Hypotension #8. Pulmonary edema #9. Subtherapeutic INR Hospital course: 67M with a history of non-hodgkins lymphoma in remission that presented to the ER on 11/21 complaining of shortness of breath, sinus congestion found to be in A. Fib with RVR. He was admitted to the ICU and started on IV Cardizem drip. This resulted in hypotension, with e-icu discontinuing it and starting amiodarone. He was also started IV Lasix 100mg BID, not producing a significant amount of urine. CT Chest indicates pulmonary edema and ground glass opacities. He has bilateral pitting edema and wheezing on auscultation throughout. The ground glass opacities as per heme-onc is a concern for lymphoma, who recommended bronchoscopy. At the time of transfer, the patient was stable on amiodarone drip at 0.5mg/kg, 0.5L O2 via NC. - Discharge Data Discharge Date: 11/22/17 Discharge Disposition: DC/Tfer to Acute Hospital 02 Condition: Stable - Patient Summary/Data Consults: Consultations 11/22/17 10:30 Consult to Physician [CONS] Routine - Patient Instructions Diet: Heart Healthy Diet Activity: As Tolerated Notify Provider of: Swelling and Redness - Discharge Plan Home Medications: Home Meds Acetaminophen [Pain Relief] 500 mg PO TID PRN 10/16/13 [History] Acyclovir 400 mg PO BID 10/16/13 [History] Magnesium Oxide 400 mg PO QID 10/16/13 [History] Montelukast [Singulair] 10 mg PO DAILY 10/16/13 [History] Pregabalin [Lyrica] 200 mg PO BID 10/16/13 [History] Lenalidomide [Revlimid] 10 mg PO DAILY 05/26/14 [History] Omeprazole [priLOSEC OTC] 20 mg PO DAILY 05/26/14 [History] Warfarin [Coumadin] 5 mg PO SUTUTHSA@2100 05/26/14 [History] Calcitriol 0.25 mcg PO Q2D@0900 03/02/17 [History] Cholecalciferol (Vitamin D3) [Vitamin D3] 2,000 unit PO DAILY 03/02/17 [History] Fluticasone Propionate [Flonase] 2 sprays NASBOTH DAILY PRN 03/02/17 [History] Loratadine 10 mg PO DAILY PRN 03/02/17 [History] Sodium Bicarbonate 1,300 mg PO TIDMEALS 03/03/17 [History] Sodium Bicarbonate 650 mg PO BEDTIME 03/03/17 [History] Warfarin [Coumadin] 2.5 mg PO MOWEFR@2100 03/03/17 [History] Albuterol [IJD: Albuterol HFA] 2 puff .XX QID PRN #1 inhaler 03/04/17 [Rx] Patient Handouts: Heart Failure, [id number], Atrial Fibrillation, Easy-to- Read Forms: ED Department Discharge Referrals: Ubaldo Acosta MD [Primary Care Provider] - - Patient Data Vitals - Most Recent: Last Vital Signs Temp 36.2 C 11/22/17 12:00 Pulse 105 H 11/21/17 19:00 Resp 19 11/22/17 15:00 BP 115/72 11/22/17 15:00 Pulse Ox 92 L 11/22/17 15:00 Weight - Most Recent: 209 lb I&O - Last 24 hours: Intake & Output 11/22/17 11/22/17 11/22/17 06:59 14:59 22:59 Intake Total 750 869 Output Total 1475 500 Balance -725 369 Lab Results - Last 24 hrs: Laboratory Results - last 24 hr 11/21/17 11/21/17 11/21/17 Range/Units 15:45 15:45 15:45 WBC 6.35 (4.0-11.0) K/uL RBC 2.76 L (4.50-5.90) M/uL Hgb 9.7 L (13.0-17.0) g/dL Hct 30.1 L (38.0-50.0) % MCV 109.1 H (80.0-98.0) fL MCH 35.1 H (27.0-32.0) pg MCHC 32.2 (31.0-37.0) g/dL RDW Std Deviation 75.6 H (28.0-62.0) fl RDW Coeff of Landry 19 H (11.0-15.0) % Plt Count 68 L (150-400) K/uL MPV 10.10 (7.40-12.00) fL Neut % (Auto) 87.3 H (48.0-80.0) % Lymph % (Auto) 5.0 L (16.0-40.0) % Dickson % (Auto) 6.5 (0.0-15.0) % Eos % (Auto) 0.9 (0.0-7.0) % Baso % (Auto) 0.3 (0.0-1.5) % Neut # (Auto) 5.5 (1.4-5.7) K/uL Lymph # (Auto) 0.3 L (0.6-2.4) K/uL Dickson # (Auto) 0.4 (0.0-0.8) K/uL Eos # (Auto) 0.1 (0.0-0.7) K/uL Baso # (Auto) 0.0 (0.0-0.1) K/uL Nucleated RBC % 0.0 /100WBC Nucleated RBCs # 0 K/uL INR Lactate (0.20-2.00) mmol/L Sodium 143 (136-148) mmol/L Potassium 5.3 H (3.5-5.1) mmol/L Chloride 110 H (98-107) mmol/L Carbon Dioxide 23.9 (21.0-32.0) mmol/L BUN 33 H (7.0-18.0) mg/dL Creatinine 3.8 H (0.8-1.3) mg/dL Est Cr Clr Drug Dosing 16.56 mL/min Estimated GFR (MDRD) 15.9 ml/min Glucose 125 H (74-106) mg/dL Calcium 8.0 L (8.5-10.1) mg/dL Phosphorus (2.6-4.7) mg/dL Magnesium (1.8-2.4) mg/dL Iron (50-175) ug/dL TIBC (250-450) ug/dL % Saturation (20-55) % Total Bilirubin 0.4 (0.2-1.0) mg/dL AST 15 (15-37) IU/L ALT 20 (14-63) IU/L Alkaline Phosphatase 111 (46-116) U/L Troponin I < 0.050 (0.000-0.056) ng/mL B-Natriuretic Peptide 1510 H (<100) PG/ML Total Protein 6.4 (6.4-8.2) g/dL Albumin 3.5 (3.4-5.0) g/dL Globulin 2.9 (2.0-3.5) g/dL Albumin/Globulin Ratio 1.2 L (1.3-2.8) Vitamin B12 (193-986) pg/mL Folate (8.60-58.90) ng/mL TSH 3rd Generation (0.36-3.74) uIU/mL Urine Color Urine Appearance Urine pH (5.0-8.0) Ur Specific [place] (1.001-1.035) Urine Protein (NEGATIVE) mg/dL Urine Glucose (UA) (NEGATIVE) mg/dL Urine Ketones (NEGATIVE) mg/dL Urine Occult Blood (NEGATIVE) Urine Nitrite (NEGATIVE) Urine Bilirubin (NEGATIVE) Urine Urobilinogen (<2.0) EU/dL Ur Leukocyte Esterase (NEGATIVE) Urine RBC (0-2/HPF) Urine WBC (0-5/HPF) Ur Epithelial Cells (NONE-FEW) Urine Bacteria (NEGATIVE) 11/21/17 11/21/17 11/21/17 Range/Units 15:45 15:45 17:01 WBC (4.0-11.0) K/uL RBC (4.50-5.90) M/uL Hgb (13.0-17.0) g/dL Hct (38.0-50.0) % MCV (80.0-98.0) fL MCH (27.0-32.0) pg MCHC (31.0-37.0) g/dL RDW Std Deviation (28.0-62.0) fl RDW Coeff of Landry (11.0-15.0) % Plt Count (150-400) K/uL MPV (7.40-12.00) fL Neut % (Auto) (48.0-80.0) % Lymph % (Auto) (16.0-40.0) % Dickson % (Auto) (0.0-15.0) % Eos % (Auto) (0.0-7.0) % Baso % (Auto) (0.0-1.5) % Neut # (Auto) (1.4-5.7) K/uL Lymph # (Auto) (0.6-2.4) K/uL Dickson # (Auto) (0.0-0.8) K/uL Eos # (Auto) (0.0-0.7) K/uL Baso # (Auto) (0.0-0.1) K/uL Nucleated RBC % /100WBC Nucleated RBCs # K/uL INR 1.56 Lactate (0.20-2.00) mmol/L Sodium (136-148) mmol/L Potassium (3.5-5.1) mmol/L Chloride (98-107) mmol/L Carbon Dioxide (21.0-32.0) mmol/L BUN (7.0-18.0) mg/dL Creatinine (0.8-1.3) mg/dL Est Cr Clr Drug Dosing mL/min Estimated GFR (MDRD) ml/min Glucose (74-106) mg/dL Calcium (8.5-10.1) mg/dL Phosphorus (2.6-4.7) mg/dL Magnesium (1.8-2.4) mg/dL Iron (50-175) ug/dL TIBC (250-450) ug/dL % Saturation (20-55) % Total Bilirubin (0.2-1.0) mg/dL AST (15-37) IU/L ALT (14-63) IU/L Alkaline Phosphatase (46-116) U/L Troponin I (0.000-0.056) ng/mL B-Natriuretic Peptide (<100) PG/ML Total Protein (6.4-8.2) g/dL Albumin (3.4-5.0) g/dL Globulin (2.0-3.5) g/dL Albumin/Globulin Ratio (1.3-2.8) Vitamin B12 (193-986) pg/mL Folate (8.60-58.90) ng/mL TSH 3rd Generation 1.69 (0.36-3.74) uIU/mL Urine Color YELLOW Urine Appearance CLEAR Urine pH 7.0 (5.0-8.0) Ur Specific [place] 1.015 (1.001-1.035) Urine Protein 30 (NEGATIVE) mg/dL Urine Glucose (UA) 250 H (NEGATIVE) mg/dL Urine Ketones NEGATIVE (NEGATIVE) mg/dL Urine Occult Blood SMALL H (NEGATIVE) Urine Nitrite NEGATIVE (NEGATIVE) Urine Bilirubin NEGATIVE (NEGATIVE) Urine Urobilinogen 0.2 (<2.0) EU/dL Ur Leukocyte Esterase NEGATIVE (NEGATIVE) Urine RBC 0-2 (0-2/HPF) Urine WBC 0-2 (0-5/HPF) Ur Epithelial Cells FEW (NONE-FEW) Urine Bacteria FEW (NEGATIVE) 11/21/17 11/21/17 11/22/17 Range/Units 21:26 21:26 02:35 WBC (4.0-11.0) K/uL RBC (4.50-5.90) M/uL Hgb (13.0-17.0) g/dL Hct (38.0-50.0) % MCV (80.0-98.0) fL MCH (27.0-32.0) pg MCHC (31.0-37.0) g/dL RDW Std Deviation (28.0-62.0) fl RDW Coeff of Landry (11.0-15.0) % Plt Count (150-400) K/uL MPV (7.40-12.00) fL Neut % (Auto) (48.0-80.0) % Lymph % (Auto) (16.0-40.0) % Dickson % (Auto) (0.0-15.0) % Eos % (Auto) (0.0-7.0) % Baso % (Auto) (0.0-1.5) % Neut # (Auto) (1.4-5.7) K/uL Lymph # (Auto) (0.6-2.4) K/uL Dickson # (Auto) (0.0-0.8) K/uL Eos # (Auto) (0.0-0.7) K/uL Baso # (Auto) (0.0-0.1) K/uL Nucleated RBC % /100WBC Nucleated RBCs # K/uL INR Lactate (0.20-2.00) mmol/L Sodium (136-148) mmol/L Potassium 5.0 (3.5-5.1) mmol/L Chloride (98-107) mmol/L Carbon Dioxide (21.0-32.0) mmol/L BUN (7.0-18.0) mg/dL Creatinine (0.8-1.3) mg/dL Est Cr Clr Drug Dosing mL/min Estimated GFR (MDRD) ml/min Glucose (74-106) mg/dL Calcium (8.5-10.1) mg/dL Phosphorus 4.4 (2.6-4.7) mg/dL Magnesium 2.1 (1.8-2.4) mg/dL Iron (50-175) ug/dL TIBC (250-450) ug/dL % Saturation (20-55) % Total Bilirubin (0.2-1.0) mg/dL AST (15-37) IU/L ALT (14-63) IU/L Alkaline Phosphatase (46-116) U/L Troponin I < 0.050 (0.000-0.056) ng/mL B-Natriuretic Peptide (<100) PG/ML Total Protein (6.4-8.2) g/dL Albumin (3.4-5.0) g/dL Globulin (2.0-3.5) g/dL Albumin/Globulin Ratio (1.3-2.8) Vitamin B12 333 (193-986) pg/mL Folate (8.60-58.90) ng/mL TSH 3rd Generation (0.36-3.74) uIU/mL Urine Color Urine Appearance Urine pH (5.0-8.0) Ur Specific [place] (1.001-1.035) Urine Protein (NEGATIVE) mg/dL Urine Glucose (UA) (NEGATIVE) mg/dL Urine Ketones (NEGATIVE) mg/dL Urine Occult Blood (NEGATIVE) Urine Nitrite (NEGATIVE) Urine Bilirubin (NEGATIVE) Urine Urobilinogen (<2.0) EU/dL Ur Leukocyte Esterase (NEGATIVE) Urine RBC (0-2/HPF) Urine WBC (0-5/HPF) Ur Epithelial Cells (NONE-FEW) Urine Bacteria (NEGATIVE) 11/22/17 11/22/17 11/22/17 Range/Units 02:35 02:35 02:35 WBC (4.0-11.0) K/uL RBC (4.50-5.90) M/uL Hgb (13.0-17.0) g/dL Hct (38.0-50.0) % MCV (80.0-98.0) fL MCH (27.0-32.0) pg MCHC (31.0-37.0) g/dL RDW Std Deviation (28.0-62.0) fl RDW Coeff of Landry (11.0-15.0) % Plt Count (150-400) K/uL MPV (7.40-12.00) fL Neut % (Auto) (48.0-80.0) % Lymph % (Auto) (16.0-40.0) % Dickson % (Auto) (0.0-15.0) % Eos % (Auto) (0.0-7.0) % Baso % (Auto) (0.0-1.5) % Neut # (Auto) (1.4-5.7) K/uL Lymph # (Auto) (0.6-2.4) K/uL Dickson # (Auto) (0.0-0.8) K/uL Eos # (Auto) (0.0-0.7) K/uL Baso # (Auto) (0.0-0.1) K/uL Nucleated RBC % /100WBC Nucleated RBCs # K/uL INR Lactate (0.20-2.00) mmol/L Sodium 144 (136-148) mmol/L Potassium 5.1 (3.5-5.1) mmol/L Chloride 110 H (98-107) mmol/L Carbon Dioxide 25.3 (21.0-32.0) mmol/L BUN 34 H (7.0-18.0) mg/dL Creatinine 4.2 H (0.8-1.3) mg/dL Est Cr Clr Drug Dosing 12.08 mL/min Estimated GFR (MDRD) 14.1 ml/min Glucose 163 H (74-106) mg/dL Calcium 7.4 L (8.5-10.1) mg/dL Phosphorus 4.4 (2.6-4.7) mg/dL Magnesium 2.0 (1.8-2.4) mg/dL Iron 24 L 24 L (50-175) ug/dL TIBC 196 L (250-450) ug/dL % Saturation 12.24 L (20-55) % Total Bilirubin 0.4 (0.2-1.0) mg/dL AST 12 L (15-37) IU/L ALT 18 (14-63) IU/L Alkaline Phosphatase 100 (46-116) U/L Troponin I (0.000-0.056) ng/mL B-Natriuretic Peptide (<100) PG/ML Total Protein 5.6 L (6.4-8.2) g/dL Albumin 3.2 L (3.4-5.0) g/dL Globulin 2.4 (2.0-3.5) g/dL Albumin/Globulin Ratio 1.3 (1.3-2.8) Vitamin B12 (193-986) pg/mL Folate 12.10 (8.60-58.90) ng/mL TSH 3rd Generation (0.36-3.74) uIU/mL Urine Color Urine Appearance Urine pH (5.0-8.0) Ur Specific [place] (1.001-1.035) Urine Protein (NEGATIVE) mg/dL Urine Glucose (UA) (NEGATIVE) mg/dL Urine Ketones (NEGATIVE) mg/dL Urine Occult Blood (NEGATIVE) Urine Nitrite (NEGATIVE) Urine Bilirubin (NEGATIVE) Urine Urobilinogen (<2.0) EU/dL Ur Leukocyte Esterase (NEGATIVE) Urine RBC (0-2/HPF) Urine WBC (0-5/HPF) Ur Epithelial Cells (NONE-FEW) Urine Bacteria (NEGATIVE) 11/22/17 11/22/17 11/22/17 Range/Units 02:35 02:35 02:35 WBC 7.19 (4.0-11.0) K/uL RBC 2.50 L (4.50-5.90) M/uL Hgb 8.7 L (13.0-17.0) g/dL Hct 27.6 L (38.0-50.0) % MCV 110.4 H (80.0-98.0) fL MCH 34.8 H (27.0-32.0) pg MCHC 31.5 (31.0-37.0) g/dL RDW Std Deviation 75.6 H (28.0-62.0) fl RDW Coeff of Landry 19 H (11.0-15.0) % Plt Count 62 L (150-400) K/uL MPV 10.60 (7.40-12.00) fL Neut % (Auto) (48.0-80.0) % Lymph % (Auto) (16.0-40.0) % Dickson % (Auto) (0.0-15.0) % Eos % (Auto) (0.0-7.0) % Baso % (Auto) (0.0-1.5) % Neut # (Auto) (1.4-5.7) K/uL Lymph # (Auto) (0.6-2.4) K/uL Dickson # (Auto) (0.0-0.8) K/uL Eos # (Auto) (0.0-0.7) K/uL Baso # (Auto) (0.0-0.1) K/uL Nucleated RBC % 0.0 /100WBC Nucleated RBCs # 0 K/uL INR 1.61 Lactate (0.20-2.00) mmol/L Sodium (136-148) mmol/L Potassium (3.5-5.1) mmol/L Chloride (98-107) mmol/L Carbon Dioxide (21.0-32.0) mmol/L BUN (7.0-18.0) mg/dL Creatinine (0.8-1.3) mg/dL Est Cr Clr Drug Dosing mL/min Estimated GFR (MDRD) ml/min Glucose (74-106) mg/dL Calcium (8.5-10.1) mg/dL Phosphorus (2.6-4.7) mg/dL Magnesium (1.8-2.4) mg/dL Iron (50-175) ug/dL TIBC (250-450) ug/dL % Saturation (20-55) % Total Bilirubin (0.2-1.0) mg/dL AST (15-37) IU/L ALT (14-63) IU/L Alkaline Phosphatase (46-116) U/L Troponin I < 0.050 (0.000-0.056) ng/mL B-Natriuretic Peptide (<100) PG/ML Total Protein (6.4-8.2) g/dL Albumin (3.4-5.0) g/dL Globulin (2.0-3.5) g/dL Albumin/Globulin Ratio (1.3-2.8) Vitamin B12 (193-986) pg/mL Folate (8.60-58.90) ng/mL TSH 3rd Generation (0.36-3.74) uIU/mL Urine Color Urine Appearance Urine pH (5.0-8.0) Ur Specific [place] (1.001-1.035) Urine Protein (NEGATIVE) mg/dL Urine Glucose (UA) (NEGATIVE) mg/dL Urine Ketones (NEGATIVE) mg/dL Urine Occult Blood (NEGATIVE) Urine Nitrite (NEGATIVE) Urine Bilirubin (NEGATIVE) Urine Urobilinogen (<2.0) EU/dL Ur Leukocyte Esterase (NEGATIVE) Urine RBC (0-2/HPF) Urine WBC (0-5/HPF) Ur Epithelial Cells (NONE-FEW) Urine Bacteria (NEGATIVE) 11/22/17 Range/Units 11:23 WBC (4.0-11.0) K/uL RBC (4.50-5.90) M/uL Hgb (13.0-17.0) g/dL Hct (38.0-50.0) % MCV (80.0-98.0) fL MCH (27.0-32.0) pg MCHC (31.0-37.0) g/dL RDW Std Deviation (28.0-62.0) fl RDW Coeff of Landry (11.0-15.0) % Plt Count (150-400) K/uL MPV (7.40-12.00) fL Neut % (Auto) (48.0-80.0) % Lymph % (Auto) (16.0-40.0) % Dickson % (Auto) (0.0-15.0) % Eos % (Auto) (0.0-7.0) % Baso % (Auto) (0.0-1.5) % Neut # (Auto) (1.4-5.7) K/uL Lymph # (Auto) (0.6-2.4) K/uL Dickson # (Auto) (0.0-0.8) K/uL Eos # (Auto) (0.0-0.7) K/uL Baso # (Auto) (0.0-0.1) K/uL Nucleated RBC % /100WBC Nucleated RBCs # K/uL INR Lactate 1.3 (0.20-2.00) mmol/L Sodium (136-148) mmol/L Potassium (3.5-5.1) mmol/L Chloride (98-107) mmol/L Carbon Dioxide (21.0-32.0) mmol/L BUN (7.0-18.0) mg/dL Creatinine (0.8-1.3) mg/dL Est Cr Clr Drug Dosing mL/min Estimated GFR (MDRD) ml/min Glucose (74-106) mg/dL Calcium (8.5-10.1) mg/dL Phosphorus (2.6-4.7) mg/dL Magnesium (1.8-2.4) mg/dL Iron (50-175) ug/dL TIBC (250-450) ug/dL % Saturation (20-55) % Total Bilirubin (0.2-1.0) mg/dL AST (15-37) IU/L ALT (14-63) IU/L Alkaline Phosphatase (46-116) U/L Troponin I (0.000-0.056) ng/mL B-Natriuretic Peptide (<100) PG/ML Total Protein (6.4-8.2) g/dL Albumin (3.4-5.0) g/dL Globulin (2.0-3.5) g/dL Albumin/Globulin Ratio (1.3-2.8) Vitamin B12 (193-986) pg/mL Folate (8.60-58.90) ng/mL TSH 3rd Generation (0.36-3.74) uIU/mL Urine Color Urine Appearance Urine pH (5.0-8.0) Ur Specific [place] (1.001-1.035) Urine Protein (NEGATIVE) mg/dL Urine Glucose (UA) (NEGATIVE) mg/dL Urine Ketones (NEGATIVE) mg/dL Urine Occult Blood (NEGATIVE) Urine Nitrite (NEGATIVE) Urine Bilirubin (NEGATIVE) Urine Urobilinogen (<2.0) EU/dL Ur Leukocyte Esterase (NEGATIVE) Urine RBC (0-2/HPF) Urine WBC (0-5/HPF) Ur Epithelial Cells (NONE-FEW) Urine Bacteria (NEGATIVE) CHRISTINE Results - Last 24 hrs: Microbiology 11/22/17 11:53 Anaerobic Blood Culture - Final Blood - Venous - Lab Draw Med Orders - Current: Current Medications Acetaminophen (Tylenol Extra Strength) 500 mg PO TID PRN PRN Reason: PAIN Acyclovir (Zovirax) 400 mg PO BID [facility] Last Admin: 11/22/17 08:26 Dose: 400 mg Albuterol/Ipratropium (Duoneb 3.0-0.5 Mg/3 Ml) 3 ml NEB Q4HRRT PRN PRN Reason: wheezes Last Admin: 11/22/17 15:08 Dose: 3 ml Calcitriol (Rocaltrol) 0.25 mcg PO Q2D@0900 JAYRO Cholecalciferol (Vitamin D3) 2,000 units PO DAILY JAYRO Last Admin: 11/22/17 08:26 Dose: 2,000 units Diltiazem HCl (Cardizem) 30 mg PO Q6HR JAYRO Last Admin: 11/22/17 11:06 Dose: 30 mg Ferrous Sulfate (Ferrous Sulfate) 325 mg PO TIDMEALS [facility] Last Admin: 11/22/17 11:06 Dose: 325 mg Fluticasone Propionate (Flonase) 0 gm NASBOTH DAILY PRN PRN Reason: Allergies Last Admin: 11/21/17 19:32 Dose: 1 spray Furosemide (Lasix) 100 mg IVPUSH BIDDIURETIC [facility] Diltiazem HCl 125 mg/ Sodium (Chloride) 125 mls @ 5 mls/hr IV NOW ONE; Protocol Stop: 11/22/17 17:19 Last Infusion: 11/21/17 22:00 Dose: 0 mg/hr, 0 mls/hr Metronidazole 500 mg/ Premix 100 mls @ 100 mls/hr IV Q8H [facility] Last Admin: 11/22/17 11:14 Dose: 100 mls/hr Amiodarone HCl/Dextrose (Nexterone In Dextrose 360 Mg/200 Ml) 360 mg in 200 mls @ 33.333 mls/hr IV ASDIRECTED [facility]; Protocol Last Admin: 11/22/17 08:36 Dose: 1 mg/min, 33.333 mls/hr Ceftriaxone Sodium/Dextrose 1 (gm/ Premix) 50 mls @ 100 mls/hr IV Q24H JAYRO Amiodarone HCl/Dextrose (Nexterone In Dextrose 360 Mg/200 Ml) 360 mg in 200 mls @ 16.667 mls/hr IV ASDIRECTED [facility]; Protocol Last Admin: 11/22/17 14:13 Dose: 0.5 mg/min, 16.667 mls/hr Levalbuterol HCl (Xopenex) 0.63 mg NEB Q8H [facility] Last Admin: 11/22/17 13:17 Dose: 0.63 mg Loratadine (Claritin) 10 mg PO DAILY PRN PRN Reason: ALLERGIES Magnesium Oxide (Magnesium Oxide) 400 mg PO QID [facility] Last Admin: 11/22/17 11:06 Dose: 400 mg Methylprednisolone Sodium Succinate (Solu-Medrol) 60 mg IVPUSH Q6H [facility] Last Admin: 11/22/17 13:53 Dose: 60 mg Morphine Sulfate (Morphine) 2 mg IVPUSH Q2H PRN PRN Reason: Pain (severe 7-10) Stop: 11/22/17 18:16 Nitroglycerin (Nitro-Bid 2%) 1 gm TOP Q6H PRN PRN Reason: Chest Pain Non-Formulary Medication (Lenalidomide [Revlimid]) 10 mg PO DAILY [facility] Omeprazole (Omeprazole) 20 mg PO DAILY [facility] Last Admin: 11/22/17 08:26 Dose: 20 mg Pregabalin (Lyrica) 200 mg PO BID [facility] Last Admin: 11/22/17 08:26 Dose: 200 mg Sodium Chloride (Saline Flush) 10 ml FLUSH ASDIRECTED PRN PRN Reason: Keep Vein Open Last Admin: 11/21/17 16:23 Dose: 10 ml Sodium Chloride (Saline Flush) 2.5 ml FLUSH ASDIRECTED PRN PRN Reason: Keep Vein Open Sodium Chloride (Saline Flush) 10 ml FLUSH ASDIRECTED PRN PRN Reason: Keep Vein Open Sodium Chloride (Saline Flush) 2.5 ml FLUSH ASDIRECTED PRN PRN Reason: Keep Vein Open Temazepam (Restoril) 15 mg PO BEDTIME PRN PRN Reason: Sleep Last Admin: 11/21/17 21:26 Dose: 15 mg Discontinued Medications Albuterol (Proventil Neb Soln) 2.5 mg NEB ONETIME ONE Stop: 11/21/17 15:55 Last Admin: 11/21/17 16:03 Dose: 2.5 mg Albuterol/Ipratropium (Duoneb 3.0-0.5 Mg/3 Ml) 3 ml NEB ONETIME ONE Stop: 11/21/17 15:20 Last Admin: 11/21/17 15:30 Dose: 3 ml Digoxin (Lanoxin) 250 mcg IVPUSH ONETIME ONE Stop: 11/22/17 11:04 Last Admin: 11/22/17 11:12 Dose: 250 mcg Diltiazem HCl (Diltiazem) 10 mg IVPUSH ONETIME ONE Stop: 11/21/17 16:18 Last Admin: 11/21/17 16:28 Dose: 10 mg Diltiazem HCl (Diltiazem) 10 mg IVPUSH ONETIME ONE Stop: 11/21/17 18:02 Last Admin: 11/21/17 18:10 Dose: Not Given Diltiazem HCl (Diltiazem) 5 mg IVPUSH ONETIME ONE Stop: 11/21/17 18:09 Last Admin: 11/21/17 18:12 Dose: 5 mg Diltiazem HCl (Diltiazem) Confirm Administered Dose 25 mg .ROUTE .STK-MED ONE Stop: 11/21/17 18:13 Last Admin: 11/21/17 18:26 Dose: Not Given Furosemide (Lasix) 40 mg IVPUSH NOW ONE Stop: 11/21/17 16:12 Last Admin: 11/21/17 16:18 Dose: 40 mg Furosemide (Lasix) 40 mg IVPUSH BID JAYRO Last Admin: 11/21/17 20:35 Dose: 40 mg Furosemide (Lasix) 40 mg IVPUSH BIDDIURETIC [facility] Last Admin: 11/22/17 07:58 Dose: 40 mg Furosemide (Lasix) 60 mg IVPUSH NOW ONE Stop: 11/22/17 10:35 Last Admin: 11/22/17 10:58 Dose: 60 mg Hydrocortisone Sodium Succinate (Solu-Cortef) 60 mg IVPUSH Q6H [facility] Last Admin: 11/22/17 07:58 Dose: 60 mg Metronidazole 250 mg/ Premix 50 mls @ 50 mls/hr IV QID JAYRO Ceftriaxone Sodium 1,000 mg/ (Sodium Chloride) 100 mls @ 400 mls/hr IV Q24H [facility] Last Admin: 11/21/17 20:37 Dose: 400 mls/hr Amiodarone HCl/Dextrose (Nexterone In Dextrose 150 Mg/100 Ml) 100 mls @ 600 mls /hr IV ONETIME ONE; Protocol Stop: 11/22/17 06:57 Last Admin: 11/22/17 08:24 Dose: 600 mls/hr Meropenem 500 mg/ Sodium (Chloride) 100 mls @ 100 mls/hr IV Q12H [facility] Methylprednisolone Sodium Succinate (Solu-Medrol) 60 mg IVPUSH Q6H [facility] Last Admin: 11/22/17 10:07 Dose: Not Given Montelukast Sodium (Singulair) 10 mg PO DAILY [facility] Last Admin: 11/22/17 08:26 Dose: Not Given Prednisone (Prednisone) 60 mg PO ONETIME ONE Stop: 11/21/17 15:21 Last Admin: 11/21/17 16:03 Dose: Not Given Sodium Bicarbonate (Sodium Bicarbonate) 650 mg PO BEDTIME [facility] Sodium Bicarbonate (Sodium Bicarbonate) 1,300 mg PO TIDMEALS [facility] Last Admin: 11/21/17 19:35 Dose: Not Given Sodium Polystyrene Sulfonate (Kayexalate) 15 gm PO ONETIME ONE Stop: 11/21/17 16:48 Last Admin: 11/21/17 17:01 Dose: 15 gm Sodium Polystyrene Sulfonate (Kayexalate) 45 gm PO NOW ONE Stop: 11/21/17 18:27 Last Admin: 11/21/17 18:57 Dose: Not Given Warfarin Sodium (Coumadin) 2.5 mg PO MOWEFR@2100 JAYRO Warfarin Sodium (Coumadin) 5 mg PO SUTUTHSA@2100 JAYRO Warfarin Sodium (Coumadin Ask) 1 each PO ONETIME ONE Stop: 11/21/17 18:25 Last Admin: 11/21/17 21:02 Dose: Not Given Warfarin Sodium (Coumadin) 7.5 mg PO ONETIME ONE Stop: 11/21/17 19:01 Last Admin: 11/21/17 19:32 Dose: 7.5 mg <Joana Huddleston - Last Filed: 11/22/17 18:00> Discharge Summary - Hospital Course Free Text/Narrative:: Patient admitted with a fib with RVR , ischemic changes on EKG , had hypotension last NIGHT IN THE 80' secondary to the nitrobid.He was switched by eICU to amiodarone drip. I/O negative -750 yesterday. Discussed with patient nephrologyst , patient it is not a candidate for dialyzes.He recommended patient to have lasix INCREASED TO 100 MG IV bid , and as per nephrologyst patient should have a urinary output 2-3 L in 24 h. Patient had urinary output of 650 in 9 h. He recommended patient to be continued with Lasix iv until his creatinine is more than 5. On CT chest patient had ground glass opacities and I have discussed with oncologyst and he says patient had previously ground glass opacities on the chest ct and he did bone marrow biopsy to evaluate for the non Hodgkin lymphoma and patient did not have lymphoma cells in the bone marrow and he stopped the the chemotherapeutic medication because of leucopenia and because there were no lympoma cells in the bone marrow. He recommended patient to be transferred to [place] to be seen by the Pulmonologyst to have bronchoscopy to be evaluated for those ground glass opacitis. Patient says he had some green cough few days before coming to hospital. He was started at admission on metronidazole and ceftriaxone for his complain of chronic sinus infection. His Ct chest showed peribronchial thickening and pulmonary edema and ground glass opacities. We changed antibiotics to meropenem 250 mg iv q 12h . Patient was transferred to [place] , accepting physician Dr. Miller. His HR was not controlled with amidarone and he was given digoxin 250 mg iv one dose and was also started on cardiazem 30 mg po q 6h. Echo done today , preliminary EF is 20% . Patient was seen by Servicer , too . He recommended patient to be continued with warfarin. Dw DR. Brown , hematologyst and he stated that full anticoagulation with warfarin is ok as long as platelets are above 50 thousand and as long as there are no bleeding tendencies. Patient has anemia of chronic kidney disease , low B 12 , low iron saturation . Needs to be started on iron and B12 , also will need procrit. As per twister frame tender due to his low EF , he will need to be controverted and he needs prior [place] to be controverted, which can not be done here. His ground glass opacities are likely due to CHF . He had peribronchial thickening- broonchitis - so will need the antibiotics and the robitussin. Ceftriaxone , Zosyn can also contribute to thrombocytopenia , so he was started on Meropenem. Diagnosis: Stroke: No - Patient Summary/Data Consults: Consultations 11/22/17 10:30 Consult to Physician [CONS] Routine - Patient Instructions Diet: Low Sodium Fluid Restriction: 1000 mL Activity: As Tolerated Showering/Bathing: No Showering - Discharge Summary/Plan Comment DC Time >30 min.: Yes - General Info Date of Service: 11/22/17 - Patient Data Vitals - Most Recent: Last Vital Signs Temp 97.7 F 11/22/17 16:00 Pulse 105 H 11/21/17 19:00 Resp 15 11/22/17 16:00 BP 111/73 11/22/17 16:00 Pulse Ox 97 11/22/17 16:00 I&O - Last 24 hours: Intake & Output 11/22/17 11/22/17 11/22/17 06:59 14:59 22:59 Intake Total 750 869 236 Output Total 1475 500 250 Balance -725 369 -14 Lab Results - Last 24 hrs: Laboratory Results - last 24 hr 11/21/17 11/21/17 11/21/17 Range/Units 15:45 15:45 17:01 WBC (4.0-11.0) K/uL RBC (4.50-5.90) M/uL Hgb (13.0-17.0) g/dL Hct (38.0-50.0) % MCV (80.0-98.0) fL MCH (27.0-32.0) pg MCHC (31.0-37.0) g/dL RDW Std Deviation (28.0-62.0) fl RDW Coeff of Landry (11.0-15.0) % Plt Count (150-400) K/uL MPV (7.40-12.00) fL Nucleated RBC % /100WBC Nucleated RBCs # K/uL INR Lactate (0.20-2.00) mmol/L Sodium 143 (136-148) mmol/L Potassium 5.3 H (3.5-5.1) mmol/L Chloride 110 H (98-107) mmol/L Carbon Dioxide 23.9 (21.0-32.0) mmol/L BUN 33 H (7.0-18.0) mg/dL Creatinine 3.8 H (0.8-1.3) mg/dL Est Cr Clr Drug Dosing 16.56 mL/min Estimated GFR (MDRD) 15.9 ml/min Glucose 125 H (74-106) mg/dL Calcium 8.0 L (8.5-10.1) mg/dL Phosphorus (2.6-4.7) mg/dL Magnesium (1.8-2.4) mg/dL Iron (50-175) ug/dL TIBC (250-450) ug/dL % Saturation (20-55) % Total Bilirubin 0.4 (0.2-1.0) mg/dL AST 15 (15-37) IU/L ALT 20 (14-63) IU/L Alkaline Phosphatase 111 (46-116) U/L Troponin I < 0.050 (0.000-0.056) ng/mL Total Protein 6.4 (6.4-8.2) g/dL Albumin 3.5 (3.4-5.0) g/dL Globulin 2.9 (2.0-3.5) g/dL Albumin/Globulin Ratio 1.2 L (1.3-2.8) Vitamin B12 (193-986) pg/mL Folate (8.60-58.90) ng/mL TSH 3rd Generation 1.69 (0.36-3.74) uIU/mL Urine Color YELLOW Urine Appearance CLEAR Urine pH 7.0 (5.0-8.0) Ur Specific [place] 1.015 (1.001-1.035) Urine Protein 30 (NEGATIVE) mg/dL Urine Glucose (UA) 250 H (NEGATIVE) mg/dL Urine Ketones NEGATIVE (NEGATIVE) mg/dL Urine Occult Blood SMALL H (NEGATIVE) Urine Nitrite NEGATIVE (NEGATIVE) Urine Bilirubin NEGATIVE (NEGATIVE) Urine Urobilinogen 0.2 (<2.0) EU/dL Ur Leukocyte Esterase NEGATIVE (NEGATIVE) Urine RBC 0-2 (0-2/HPF) Urine WBC 0-2 (0-5/HPF) Ur Epithelial Cells FEW (NONE-FEW) Urine Bacteria FEW (NEGATIVE) 11/21/17 11/21/17 11/22/17 Range/Units 21:26 21:26 02:35 WBC (4.0-11.0) K/uL RBC (4.50-5.90) M/uL Hgb (13.0-17.0) g/dL Hct (38.0-50.0) % MCV (80.0-98.0) fL MCH (27.0-32.0) pg MCHC (31.0-37.0) g/dL RDW Std Deviation (28.0-62.0) fl RDW Coeff of Landry (11.0-15.0) % Plt Count (150-400) K/uL MPV (7.40-12.00) fL Nucleated RBC % /100WBC Nucleated RBCs # K/uL INR Lactate (0.20-2.00) mmol/L Sodium (136-148) mmol/L Potassium 5.0 (3.5-5.1) mmol/L Chloride (98-107) mmol/L Carbon Dioxide (21.0-32.0) mmol/L BUN (7.0-18.0) mg/dL Creatinine (0.8-1.3) mg/dL Est Cr Clr Drug Dosing mL/min Estimated GFR (MDRD) ml/min Glucose (74-106) mg/dL Calcium (8.5-10.1) mg/dL Phosphorus 4.4 (2.6-4.7) mg/dL Magnesium 2.1 (1.8-2.4) mg/dL Iron (50-175) ug/dL TIBC (250-450) ug/dL % Saturation (20-55) % Total Bilirubin (0.2-1.0) mg/dL AST (15-37) IU/L ALT (14-63) IU/L Alkaline Phosphatase (46-116) U/L Troponin I < 0.050 (0.000-0.056) ng/mL Total Protein (6.4-8.2) g/dL Albumin (3.4-5.0) g/dL Globulin (2.0-3.5) g/dL Albumin/Globulin Ratio (1.3-2.8) Vitamin B12 333 (193-986) pg/mL Folate (8.60-58.90) ng/mL TSH 3rd Generation (0.36-3.74) uIU/mL Urine Color Urine Appearance Urine pH (5.0-8.0) Ur Specific [place] (1.001-1.035) Urine Protein (NEGATIVE) mg/dL Urine Glucose (UA) (NEGATIVE) mg/dL Urine Ketones (NEGATIVE) mg/dL Urine Occult Blood (NEGATIVE) Urine Nitrite (NEGATIVE) Urine Bilirubin (NEGATIVE) Urine Urobilinogen (<2.0) EU/dL Ur Leukocyte Esterase (NEGATIVE) Urine RBC (0-2/HPF) Urine WBC (0-5/HPF) Ur Epithelial Cells (NONE-FEW) Urine Bacteria (NEGATIVE) 11/22/17 11/22/17 11/22/17 Range/Units 02:35 02:35 02:35 WBC (4.0-11.0) K/uL RBC (4.50-5.90) M/uL Hgb (13.0-17.0) g/dL Hct (38.0-50.0) % MCV (80.0-98.0) fL MCH (27.0-32.0) pg MCHC (31.0-37.0) g/dL RDW Std Deviation (28.0-62.0) fl RDW Coeff of Landry (11.0-15.0) % Plt Count (150-400) K/uL MPV (7.40-12.00) fL Nucleated RBC % /100WBC Nucleated RBCs # K/uL INR Lactate (0.20-2.00) mmol/L Sodium 144 (136-148) mmol/L Potassium 5.1 (3.5-5.1) mmol/L Chloride 110 H (98-107) mmol/L Carbon Dioxide 25.3 (21.0-32.0) mmol/L BUN 34 H (7.0-18.0) mg/dL Creatinine 4.2 H (0.8-1.3) mg/dL Est Cr Clr Drug Dosing 12.08 mL/min Estimated GFR (MDRD) 14.1 ml/min Glucose 163 H (74-106) mg/dL Calcium 7.4 L (8.5-10.1) mg/dL Phosphorus 4.4 (2.6-4.7) mg/dL Magnesium 2.0 (1.8-2.4) mg/dL Iron 24 L 24 L (50-175) ug/dL TIBC 196 L (250-450) ug/dL % Saturation 12.24 L (20-55) % Total Bilirubin 0.4 (0.2-1.0) mg/dL AST 12 L (15-37) IU/L ALT 18 (14-63) IU/L Alkaline Phosphatase 100 (46-116) U/L Troponin I (0.000-0.056) ng/mL Total Protein 5.6 L (6.4-8.2) g/dL Albumin 3.2 L (3.4-5.0) g/dL Globulin 2.4 (2.0-3.5) g/dL Albumin/Globulin Ratio 1.3 (1.3-2.8) Vitamin B12 (193-986) pg/mL Folate 12.10 (8.60-58.90) ng/mL TSH 3rd Generation (0.36-3.74) uIU/mL Urine Color Urine Appearance Urine pH (5.0-8.0) Ur Specific [place] (1.001-1.035) Urine Protein (NEGATIVE) mg/dL Urine Glucose (UA) (NEGATIVE) mg/dL Urine Ketones (NEGATIVE) mg/dL Urine Occult Blood (NEGATIVE) Urine Nitrite (NEGATIVE) Urine Bilirubin (NEGATIVE) Urine Urobilinogen (<2.0) EU/dL Ur Leukocyte Esterase (NEGATIVE) Urine RBC (0-2/HPF) Urine WBC (0-5/HPF) Ur Epithelial Cells (NONE-FEW) Urine Bacteria (NEGATIVE) 11/22/17 11/22/17 11/22/17 Range/Units 02:35 02:35 02:35 WBC 7.19 (4.0-11.0) K/uL RBC 2.50 L (4.50-5.90) M/uL Hgb 8.7 L (13.0-17.0) g/dL Hct 27.6 L (38.0-50.0) % MCV 110.4 H (80.0-98.0) fL MCH 34.8 H (27.0-32.0) pg MCHC 31.5 (31.0-37.0) g/dL RDW Std Deviation 75.6 H (28.0-62.0) fl RDW Coeff of Landry 19 H (11.0-15.0) % Plt Count 62 L (150-400) K/uL MPV 10.60 (7.40-12.00) fL Nucleated RBC % 0.0 /100WBC Nucleated RBCs # 0 K/uL INR 1.61 Lactate (0.20-2.00) mmol/L Sodium (136-148) mmol/L Potassium (3.5-5.1) mmol/L Chloride (98-107) mmol/L Carbon Dioxide (21.0-32.0) mmol/L BUN (7.0-18.0) mg/dL Creatinine (0.8-1.3) mg/dL Est Cr Clr Drug Dosing mL/min Estimated GFR (MDRD) ml/min Glucose (74-106) mg/dL Calcium (8.5-10.1) mg/dL Phosphorus (2.6-4.7) mg/dL Magnesium (1.8-2.4) mg/dL Iron (50-175) ug/dL TIBC (250-450) ug/dL % Saturation (20-55) % Total Bilirubin (0.2-1.0) mg/dL AST (15-37) IU/L ALT (14-63) IU/L Alkaline Phosphatase (46-116) U/L Troponin I < 0.050 (0.000-0.056) ng/mL Total Protein (6.4-8.2) g/dL Albumin (3.4-5.0) g/dL Globulin (2.0-3.5) g/dL Albumin/Globulin Ratio (1.3-2.8) Vitamin B12 (193-986) pg/mL Folate (8.60-58.90) ng/mL TSH 3rd Generation (0.36-3.74) uIU/mL Urine Color Urine Appearance Urine pH (5.0-8.0) Ur Specific [place] (1.001-1.035) Urine Protein (NEGATIVE) mg/dL Urine Glucose (UA) (NEGATIVE) mg/dL Urine Ketones (NEGATIVE) mg/dL Urine Occult Blood (NEGATIVE) Urine Nitrite (NEGATIVE) Urine Bilirubin (NEGATIVE) Urine Urobilinogen (<2.0) EU/dL Ur Leukocyte Esterase (NEGATIVE) Urine RBC (0-2/HPF) Urine WBC (0-5/HPF) Ur Epithelial Cells (NONE-FEW) Urine Bacteria (NEGATIVE) 11/22/17 Range/Units 11:23 WBC (4.0-11.0) K/uL RBC (4.50-5.90) M/uL Hgb (13.0-17.0) g/dL Hct (38.0-50.0) % MCV (80.0-98.0) fL MCH (27.0-32.0) pg MCHC (31.0-37.0) g/dL RDW Std Deviation (28.0-62.0) fl RDW Coeff of Landry (11.0-15.0) % Plt Count (150-400) K/uL MPV (7.40-12.00) fL Nucleated RBC % /100WBC Nucleated RBCs # K/uL INR Lactate 1.3 (0.20-2.00) mmol/L Sodium (136-148) mmol/L Potassium (3.5-5.1) mmol/L Chloride (98-107) mmol/L Carbon Dioxide (21.0-32.0) mmol/L BUN (7.0-18.0) mg/dL Creatinine (0.8-1.3) mg/dL Est Cr Clr Drug Dosing mL/min Estimated GFR (MDRD) ml/min Glucose (74-106) mg/dL Calcium (8.5-10.1) mg/dL Phosphorus (2.6-4.7) mg/dL Magnesium (1.8-2.4) mg/dL Iron (50-175) ug/dL TIBC (250-450) ug/dL % Saturation (20-55) % Total Bilirubin (0.2-1.0) mg/dL AST (15-37) IU/L ALT (14-63) IU/L Alkaline Phosphatase (46-116) U/L Troponin I (0.000-0.056) ng/mL Total Protein (6.4-8.2) g/dL Albumin (3.4-5.0) g/dL Globulin (2.0-3.5) g/dL Albumin/Globulin Ratio (1.3-2.8) Vitamin B12 (193-986) pg/mL Folate (8.60-58.90) ng/mL TSH 3rd Generation (0.36-3.74) uIU/mL Urine Color Urine Appearance Urine pH (5.0-8.0) Ur Specific [place] (1.001-1.035) Urine Protein (NEGATIVE) mg/dL Urine Glucose (UA) (NEGATIVE) mg/dL Urine Ketones (NEGATIVE) mg/dL Urine Occult Blood (NEGATIVE) Urine Nitrite (NEGATIVE) Urine Bilirubin (NEGATIVE) Urine Urobilinogen (<2.0) EU/dL Ur Leukocyte Esterase (NEGATIVE) Urine RBC (0-2/HPF) Urine WBC (0-5/HPF) Ur Epithelial Cells (NONE-FEW) Urine Bacteria (NEGATIVE) CHRISTINE Results - Last 24 hrs: Microbiology 11/22/17 11:53 Anaerobic Blood Culture - Final Blood - Venous - Lab Draw Med Orders - Current: Current Medications Acetaminophen (Tylenol Extra Strength) 500 mg PO TID PRN PRN Reason: PAIN Acyclovir (Zovirax) 400 mg PO BID JAYRO Last Admin: 11/22/17 08:26 Dose: 400 mg Albuterol/Ipratropium (Duoneb 3.0-0.5 Mg/3 Ml) 3 ml NEB Q4HRRT PRN PRN Reason: wheezes Last Admin: 11/22/17 15:08 Dose: 3 ml Calcitriol (Rocaltrol) 0.25 mcg PO Q2D@0900 [facility] Cholecalciferol (Vitamin D3) 2,000 units PO DAILY JAYRO Last Admin: 11/22/17 08:26 Dose: 2,000 units Diltiazem HCl (Cardizem) 30 mg PO Q6HR JAYRO Last Admin: 11/22/17 11:06 Dose: 30 mg Ferrous Sulfate (Ferrous Sulfate) 325 mg PO TIDMEALS [facility] Last Admin: 11/22/17 11:06 Dose: 325 mg Fluticasone Propionate (Flonase) 0 gm NASBOTH DAILY PRN PRN Reason: Allergies Last Admin: 11/21/17 19:32 Dose: 1 spray Furosemide (Lasix) 100 mg IVPUSH BIDDIURETIC [facility] Diltiazem HCl 125 mg/ Sodium (Chloride) 125 mls @ 5 mls/hr IV NOW ONE; Protocol Stop: 11/22/17 17:19 Last Infusion: 11/21/17 22:00 Dose: 0 mg/hr, 0 mls/hr Metronidazole 500 mg/ Premix 100 mls @ 100 mls/hr IV Q8H JAYRO Last Admin: 11/22/17 11:14 Dose: 100 mls/hr Amiodarone HCl/Dextrose (Nexterone In Dextrose 360 Mg/200 Ml) 360 mg in 200 mls @ 33.333 mls/hr IV ASDIRECTED [facility]; Protocol Last Admin: 11/22/17 08:36 Dose: 1 mg/min, 33.333 mls/hr Ceftriaxone Sodium/Dextrose 1 (gm/ Premix) 50 mls @ 100 mls/hr IV Q24H JAYRO Amiodarone HCl/Dextrose (Nexterone In Dextrose 360 Mg/200 Ml) 360 mg in 200 mls @ 16.667 mls/hr IV ASDIRECTED [facility]; Protocol Last Admin: 11/22/17 14:13 Dose: 0.5 mg/min, 16.667 mls/hr Levalbuterol HCl (Xopenex) 0.63 mg NEB Q8H [facility] Last Admin: 11/22/17 13:17 Dose: 0.63 mg Loratadine (Claritin) 10 mg PO DAILY PRN PRN Reason: ALLERGIES Magnesium Oxide (Magnesium Oxide) 400 mg PO QID [facility] Last Admin: 11/22/17 11:06 Dose: 400 mg Methylprednisolone Sodium Succinate (Solu-Medrol) 60 mg IVPUSH Q6H [facility] Last Admin: 11/22/17 13:53 Dose: 60 mg Morphine Sulfate (Morphine) 2 mg IVPUSH Q2H PRN PRN Reason: Pain (severe 7-10) Stop: 11/22/17 18:16 Nitroglycerin (Nitro-Bid 2%) 1 gm TOP Q6H PRN PRN Reason: Chest Pain Non-Formulary Medication (Lenalidomide [Revlimid]) 10 mg PO DAILY [facility] Omeprazole (Omeprazole) 20 mg PO DAILY [facility] Last Admin: 11/22/17 08:26 Dose: 20 mg Pregabalin (Lyrica) 200 mg PO BID [facility] Last Admin: 11/22/17 08:26 Dose: 200 mg Sodium Chloride (Saline Flush) 10 ml FLUSH ASDIRECTED PRN PRN Reason: Keep Vein Open Last Admin: 11/21/17 16:23 Dose: 10 ml Sodium Chloride (Saline Flush) 2.5 ml FLUSH ASDIRECTED PRN PRN Reason: Keep Vein Open Sodium Chloride (Saline Flush) 10 ml FLUSH ASDIRECTED PRN PRN Reason: Keep Vein Open Sodium Chloride (Saline Flush) 2.5 ml FLUSH ASDIRECTED PRN PRN Reason: Keep Vein Open Temazepam (Restoril) 15 mg PO BEDTIME PRN PRN Reason: Sleep Last Admin: 11/21/17 21:26 Dose: 15 mg Discontinued Medications Albuterol (Proventil Neb Soln) 2.5 mg NEB ONETIME ONE Stop: 11/21/17 15:55 Last Admin: 11/21/17 16:03 Dose: 2.5 mg Albuterol/Ipratropium (Duoneb 3.0-0.5 Mg/3 Ml) 3 ml NEB ONETIME ONE Stop: 11/21/17 15:20 Last Admin: 11/21/17 15:30 Dose: 3 ml Digoxin (Lanoxin) 250 mcg IVPUSH ONETIME ONE Stop: 11/22/17 11:04 Last Admin: 11/22/17 11:12 Dose: 250 mcg Diltiazem HCl (Diltiazem) 10 mg IVPUSH ONETIME ONE Stop: 11/21/17 16:18 Last Admin: 11/21/17 16:28 Dose: 10 mg Diltiazem HCl (Diltiazem) 10 mg IVPUSH ONETIME ONE Stop: 11/21/17 18:02 Last Admin: 11/21/17 18:10 Dose: Not Given Diltiazem HCl (Diltiazem) 5 mg IVPUSH ONETIME ONE Stop: 11/21/17 18:09 Last Admin: 11/21/17 18:12 Dose: 5 mg Diltiazem HCl (Diltiazem) Confirm Administered Dose 25 mg .ROUTE .STK-MED ONE Stop: 11/21/17 18:13 Last Admin: 11/21/17 18:26 Dose: Not Given Furosemide (Lasix) 40 mg IVPUSH NOW ONE Stop: 11/21/17 16:12 Last Admin: 11/21/17 16:18 Dose: 40 mg Furosemide (Lasix) 40 mg IVPUSH BID JAYRO Last Admin: 11/21/17 20:35 Dose: 40 mg Furosemide (Lasix) 40 mg IVPUSH BIDDIURETIC JAYRO Last Admin: 11/22/17 07:58 Dose: 40 mg Furosemide (Lasix) 60 mg IVPUSH NOW ONE Stop: 11/22/17 10:35 Last Admin: 11/22/17 10:58 Dose: 60 mg Hydrocortisone Sodium Succinate (Solu-Cortef) 60 mg IVPUSH Q6H [facility] Last Admin: 11/22/17 07:58 Dose: 60 mg Metronidazole 250 mg/ Premix 50 mls @ 50 mls/hr IV QID JAYRO Ceftriaxone Sodium 1,000 mg/ (Sodium Chloride) 100 mls @ 400 mls/hr IV Q24H [facility] Last Admin: 11/21/17 20:37 Dose: 400 mls/hr Amiodarone HCl/Dextrose (Nexterone In Dextrose 150 Mg/100 Ml) 100 mls @ 600 mls /hr IV ONETIME ONE; Protocol Stop: 11/22/17 06:57 Last Admin: 11/22/17 08:24 Dose: 600 mls/hr Meropenem 500 mg/ Sodium (Chloride) 100 mls @ 100 mls/hr IV Q12H [facility] Methylprednisolone Sodium Succinate (Solu-Medrol) 60 mg IVPUSH Q6H [facility] Last Admin: 11/22/17 10:07 Dose: Not Given Montelukast Sodium (Singulair) 10 mg PO DAILY [facility] Last Admin: 11/22/17 08:26 Dose: Not Given Prednisone (Prednisone) 60 mg PO ONETIME ONE Stop: 11/21/17 15:21 Last Admin: 11/21/17 16:03 Dose: Not Given Sodium Bicarbonate (Sodium Bicarbonate) 650 mg PO BEDTIME [facility] Sodium Bicarbonate (Sodium Bicarbonate) 1,300 mg PO TIDMEALS [facility] Last Admin: 11/21/17 19:35 Dose: Not Given Sodium Polystyrene Sulfonate (Kayexalate) 15 gm PO ONETIME ONE Stop: 11/21/17 16:48 Last Admin: 11/21/17 17:01 Dose: 15 gm Sodium Polystyrene Sulfonate (Kayexalate) 45 gm PO NOW ONE Stop: 11/21/17 18:27 Last Admin: 11/21/17 18:57 Dose: Not Given Warfarin Sodium (Coumadin) 2.5 mg PO MOWEFR@2100 [facility] Warfarin Sodium (Coumadin) 5 mg PO SUTUTHSA@2100 [facility] Warfarin Sodium (Coumadin Ask) 1 each PO ONETIME ONE Stop: 11/21/17 18:25 Last Admin: 11/21/17 21:02 Dose: Not Given Warfarin Sodium (Coumadin) 7.5 mg PO ONETIME ONE Stop: 11/21/17 19:01 Last Admin: 11/21/17 19:32 Dose: 7.5 mg
--- NOTE | 2017-11-22 15:51 | CR ---
EXAM DATE: 11/21/17 PATIENT'S AGE: 67 Patient: BERONICA SCHMIDT Facility: [place], [place] Site . Site : 1950 Study: XRay Chest [id number] 4:42:21 PM Ordering Physician: Noam Victor Final Report: Pain shortness of breath Two-view chest x-ray Findings: Low lung volumes. Enlargement of the cardiac silhouette. Right Port-A-Cath. Interstitial edema.Possible tiny effusions. No pneumothorax. IMPRESSION: 1. Pulmonary edema. Possible tiny effusions. Dictated by Danelle Styles MD @ Nov 21 2017 4:57PM (Electronic Signature) Report Signed by Proxy. SALAS
--- NOTE | 2017-11-22 16:45 | CT ---
EXAM DATE: 11/21/17 PATIENT'S AGE: 67 Patient: BERONICA SCHMIDT Facility: [place], [place] Site . Site : 1950 Study: CT Chest [id number] 9:09:47 PM Ordering Physician: Karo Bernard Final Report: INDICATION: Lymphoma. Wheezing. TECHNIQUE: A CT volumetric acquisition was performed of the thorax without IV contrast. FINDINGS: CT images demonstrate normal size and density of the thyroid gland. There is no evidence of malignant appearing lymphadenopathy within the central mediastinum or either axilla. Mild atherosclerotic changes are noted within the coronary arteries. There is also mild atherosclerosis within the aortic arch but no evidence of aneurysm or dissection. There is no evidence pericardial fluid. There is layering of small bilateral pleural effusions which appear non loculated. There are no suspicious enhancing lesions along the pleural surfaces. The spleen has normal size and density. There is no evidence of upper abdominal lymphadenopathy. The lung window images show central bronchial wall thickening and peribronchial ground-glass opacities. In addition there is pulmonary vascular congestion and fluid within the interlobular septi. The radiographic changes would indicate interstitial alveolar pulmonary edema. There is no evidence of a suspicious mass. There is no evidence of pneumothorax. IMPRESSION: Radiographic changes would indicate interstitial pulmonary edema and accompanying bilateral pleural effusions. Please note that all CT scans at this facility use dose modulation, iterative reconstruction, and/or weight-based dosing when appropriate to reduce radiation dose to as low as reasonably achievable. Dictated by Kg Paula MD @ Nov 21 2017 9:37PM (Electronic Signature) Report Signed by Proxy. SALAS
[2017-11-22 17:01] VITALS: BP 96/69
[2017-11-22] MEDS ORDERED: cefTRIAXone 1 GM in Premix Bag 1 BAG IV SCH (19:00)
[2017-11-22] MEDS ORDERED: Warfarin 2.5 MG Tab PO SCH (21:00)
[2017-11-22] MEDS ORDERED: Furosemide 100 MG/10 ML SDV IVPUSH SCH (21:00)
[2017-11-23] MEDS ORDERED: Calcitriol 0.25 MCG Cap PO SCH (09:00)
--- NOTE | 2017-11-23 09:07 | CONS ---
DATE OF CONSULTATION: 11/22/2017 DATE OF : 1950 PRIMARY CARE PHYSICIAN: Ubaldo Acosta REASON FOR CONSULTATION: Atrial fibrillation, RVR, heart failure. HISTORY: This is a 67-year-old male who has a history of non-Hodgkin lymphoma diagnosed 2000 in remission and recurrent 4 years ago, history of left renal atrophy, stage 4 chronic kidney disease. He presented to the hospital with shortness of breath and tired. He has been in his usual state of health until a month ago when he started having congestion and coughing. He stated that he coughed with a greenish productive sputum. He denies fever. One of his medication for his non-Hodgkin lymphoma has been stopped 2 months ago by his oncologist. He was told that his lymphoma has gone away. He was treated with antibiotic as an outpatient, however, his symptom has got worse. He came in with shortness of breath, wheezing, sinus pressure. He was found to be hypoxic. BNP is elevated. He was on torsemide 20 mg at home and when he got here, the chest x-ray showed pulmonary edema bilaterally with pleural effusion, seemed to be worse from the previous chest x-ray and he was given Lasix 40 mg IV, however, due to the poor urine output, the Lasix another 60 mg IV was given today. PAST MEDICAL HISTORY: Including history of a DVT, history of leg edema, history of GERD. ALLERGIES: No known drug allergy. HOME MEDICATIONS: Includin. Acyclovir 400 mg twice a day. 2. Flonase. 3. Lyrica 200 mg twice a day. 4. Omeprazole 20 mg once a day. 5. Rocaltrol 0.25 mcg every other day. 6. Torsemide 20 mg once a day. 7. Coumadin, keep INR 2 to 3. SOCIAL HISTORY: Occasional alcohol use. Never smoked. No drug use. REVIEW OF SYSTEMS: Except indicated in the HPI, otherwise has been negative. PHYSICAL EXAMINATION: VITAL SIGNS: initial blood pressure is low 90/52 with a heart rate of 92; O2 saturation of 96, O2 saturation initially was 89 on room air, and body temperature 36.2, respiration rate is 18. He presented with atrial fibrillation when he got here. HEENT: Mouth dry but not pale. No jaundice. JVD positive. LUNGS: Crackles bilaterally, audibly wheezing. ABDOMEN: Soft, nontender. Bowel sounds present. No rebound tenderness. EXTREMITIES: Legs edema bilaterally. INVESTIGATIONS: CBC showed WBC 6, hematocrit 30, hemoglobin of 9, platelet is 68. However, his baseline of the platelet was ranging between 40 to 153. INR when he got here it was 1.5. Sodium 143; potassium 5.3; chloride 110; bicarb 23; BUN 33; creatinine is 3.8, however, his baseline is between 3.9 to 4.7 over the past year. Glucose 125 to 163, calcium is 8. Troponin was negative x3. BNP 1500. TSH is 1.6. Urinalysis is negative for bacteria. Chest x-ray showed bilateral pleural edema. Echocardiogram in April 2016 showed ejection fraction 60%, impaired relaxation, mild aortic valve regurgitation, and trace MR. Echocardiogram done here today November 22, it showed severe LV systolic dysfunction, probably 25-30% with mild MR, mild AR, and LV dilatation. RV seemed to be working fine. ASSESSMENT AND PLAN: This is a 67-year-old male with history of non-Hodgkin lymphoma questioning remission, presented to the hospital with decompensated heart failure and LV systolic dysfunction with atrial fibrillation RVR. He has been receiving the IV Lasix. If he is not making good urine output for his heart failure treatment, he will probably need dialysis to remove the fluid and he also had the episode of hypotension, not sure what is the etiology, could be related to cardiac. Given his declined LV systolic function, also it could be from sepsis as well. Given the history of non-Hodgkin lymphoma, immunocompromised host, chest CT scan without contrast that was done yesterday showed central bronchial wall thickening and peribronchial ground-glass opacity with a possibility of pulmonary vascular congestion with pleural effusion as well. There might be the possibility of lung infection as well. I feel that the patient's medical history seems to be complicated. He would need to be transferred to the tertiary care center for possible dialysis as well as for possibly ischemic workup including angiogram versus cardioversion, but does not seems like he has been on the good anticoagulation. His INR when he was here was subtherapeutic at 1.56. If he needs to be cardioverted, he probably needs to have a [place] done to make sure there is no blood clot. Currently, he received a high dose of Lasix. Total dose today this morning is 100 mg. He does not make a good urine, he only put out 500 mL so far. My feeling is that the patient would need a dialysis temporality to remove the fluid and he may possibly need inotrope to support his blood pressure given the LV systolic dysfunction. HARJIT / EFREM /[id number]
== END 2017-11-22 17:38 | DRG 308 ==
LOC: MW.ED 15:04 → MW.ICU 16:18
PROVIDERS: ADMIT Internal Medicine; ATTEND Internal Medicine
DX: I50.9 Heart failure, unspecified (principal); I48.91 Unspecified atrial fibrillation; R09.02 Hypoxemia; J96.01 Acute respiratory failure with hypoxia; J81.1 Chronic pulmonary edema; C85.90 Non-Hodgkin lymphoma, unspecified, unspecified site; N18.4 Chronic kidney disease, stage 4 (severe); I50.20 Unspecified systolic (congestive) heart failure; D69.6 Thrombocytopenia, unspecified; I95.9 Hypotension, unspecified; R79.1 Abnormal coagulation profile; D63.1 Anemia in chronic kidney disease; J32.9 Chronic sinusitis, unspecified; I45.81 Long QT syndrome; E87.5 Hyperkalemia; K21.9 Gastro-esophageal reflux disease without esophagitis; Z79.899 Other long term (current) drug therapy; Z79.01 Long term (current) use of anticoagulants
CPT/HCPCS: 71045; 71045-26; 71046; 71046-26; 71250; 71250-26; 76775; 76775-26; 80053; 81001; 82607; 82746; 83540; 83550; 83605; 83735; 83880; 84100; 84132; 84443; 84484; 85025; 85027; 85610; 87040; 93005; 93306; 94640; 96374; 96375; 96376; 99285-25; A9270-GY; J0282; J0696; J1160; J1720; J1940; J2920; J3490; J7030

== ENCOUNTER 2018-09-02 05:00 | Emergency (ER) | payer MEDICARE, BC ==
--- NOTE | 2018-09-02 05:07 | EDM.PDOC ---
ED HPI GENERAL MEDICAL PROBLEM - General Stated Complaint: TROUBLE BREATHING Time Seen by Provider: 09/02/18 05:05 - History of Present Illness INITIAL COMMENTS - FREE TEXT/NARRATIVE: HISTORY AND PHYSICAL: History of present illness: The patient is a 68-year-old male who presents to the ED with complaints of shortness of breath. The patient has end-stage renal disease and is on dialysis Wednesday and Wednesday with his next appointment today at 4:30 PM and says that he is on dialysis and has renal failure as a result of long-term chemotherapy for non-Hodgkin's lymphoma. He says that the non-Hodgkin's lymphoma is in remission but his kidneys were damaged due to that and he has been on dialysis since November of last year. The patient also has a history of A. fib with RVR and congestive heart failure and is on Coumadin therapy and says his Coumadin was held the last few days because the last level was on the high side. The patient tells me that he has more shortness of breath in the evenings and he seemed a little more short of breath this morning and thought he should come in for evaluation he has had a cough for the last 3-4 days which is occasionally productive of phlegm but he has no chest pain or palpitations. No abdominal pain no nausea or vomiting and is eating and drinking normally. He has no abdominal bloating and no peripheral swelling. He's had no fevers or other upper respiratory symptoms. He is unsure of what exactly happened in dialysis and he thinks that they do take fluid off as well as correct his lab values. Patient says that with his dialysis he does make a small amount of urine but not a normal amount The patient was seen in the clinic this week and did have a chest x-ray which showed his permacath as well as increased bibasilar opacities. Please see below for more information from the dialysis unit Review of systems: As per history of present illness and below otherwise all systems reviewed and negative. Past medical history: As per history of present illness and as reviewed below otherwise noncontributory. Surgical history: As per history of present illness and as reviewed below otherwise noncontributory. Social history: No reported history of drug or alcohol abuse. Family history: As per history of present illness and as reviewed below otherwise noncontributory. Physical exam: General: Well-developed well-nourished man who is nontoxic and vital signs are noted by me. His O2 sat on room air was 82% HEENT: Atraumatic, normocephalic, pupils reactive, negative for conjunctival pallor or scleral icterus, mucous membranes moist, throat clear, neck supple, nontender, trachea midline. Lungs: Coarse rhonchi throughout bilateral marlow but no wheezing or stridor and no work of breathing , breath sounds equal bilaterally, chest nontender. Heart: S1S2, regular rate and rhythm on my evaluation and no overt murmurs are appreciated Abdomen: Soft, nondistended, nontender. NABS Pelvis: Stable nontender. Genitourinary: Deferred. Rectal: Deferred. Extremities: Atraumatic, negative for cords or calf pain. Neurovascular unremarkable. No pedal edema or leg asymmetry Neuro: Awake, alert, oriented. Cranial nerves II through XII unremarkable. Cerebellum unremarkable. Motor and sensory unremarkable throughout. Exam nonfocal. Diagnostics: EKG chest x-ray CBC CMP BNP INR troponin Therapeutics: O2 monitor, patient refused IV initially but now that he is being transferred he is understanding that he needed to be placed, Rocephin According to the nurse in the dialysis unit the patient has been complaining of shortness of breath both before and after dialysis since he started in November. They have been pulling off as much as fluid as they can but they tell me that he can handle more fluid removal because he gets very lightheaded. They've been pulling off about 2 kg. She says that she is not sure if they can make an open slot for him for dialysis sooner than his scheduled time but I told her I would keep her posted pending the patient's lab results We have been able to start weaning the oxygen from 10 L to 6 L and is maintaining his O2 sats but he still somewhat to. His chest x-ray today compared to one performed just 3 days so was progression of right lower lobe and right middle lobe opacities it is unclear if this progression of his CHF or new infiltrate. I discussed with patient and at bedside all testing results and the need for inpatient care. We do not have the ability to admit the patient here for further evaluation as we cannot do inpatient dialysis and he does need dialysis. It is unclear to me why his chest x-ray is progressing and the patient has not able to make it from dialysis appointment to dialysis appointment. He is agreeable for this transfer. I have offered him transferred to [facility] versus [facility] in [place] and he is aware that [facility] is her sister hospital for our dialysis patients and he would prefer that transfer I will give a dose of Rocephin and he is now agreeable to IV placement. I will discuss with the accepting physician if he would like a dose of Lasix or nitroglycerin paste placed to help potentially unload him. He currently is on 6 L and breathing at a respiratory rate of 30-32 with an O2 sat at 95%. 0655: Case was discussed with the hospitalist at [facility] in [place], Dr. Bailey. He accepts the patient for transfer and is aware of all testing results. He said that this point he would not necessarily give Lasix or Nitropaste and he is aware that I'm giving a dose of Rocephin. Impression: Dyspnea, progression of right middle and right lower lobe infiltrates/opacities , rule out exacerbation of CHF versus new pneumonia Definitive disposition and diagnosis as appropriate pending reevaluation and review of above. - Related Data Allergies Allergy/AdvReac Type Severity Reaction Status Date / Time No Known Allergies Allergy Verified 11/21/17 15:15 Home Meds: Home Meds Acetaminophen [Pain Relief] 500 mg PO TID PRN 10/16/13 [History] Acyclovir 400 mg PO BID 10/16/13 [History] Magnesium Oxide 800 mg PO BID 10/16/13 [History] Pregabalin [Lyrica] 200 mg PO BID 10/16/13 [History] Omeprazole [priLOSEC OTC] 20 mg PO DAILY 05/26/14 [History] Warfarin [Coumadin] 5 mg PO SUTUTHSA@2100 05/26/14 [History] Cholecalciferol (Vitamin D3) [Vitamin D3] 2,000 unit PO DAILY 03/02/17 [History] Loratadine 10 mg PO DAILY PRN 03/02/17 [History] Warfarin [Coumadin] 2.5 mg PO MOWEFR@2100 03/03/17 [History] Metoprolol Succinate 1.5 tab PO BID 09/02/18 [History] Torsemide 50 mg PO ASDIRECTED 09/02/18 [History] Past Medical History HEENT History: Reports: Impaired Vision Cardiovascular History: Reports: None Respiratory History: Reports: Pneumonia, Recurrent Gastrointestinal History: Reports: GERD Genitourinary History: Reports: Other (See Below) Other Genitourinary History: 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 Musculoskeletal History: Reports: None Neurological History: Reports: None Psychiatric History: Reports: None Endocrine/Metabolic History: Reports: None Hematologic History: Reports: None Immunologic History: Reports: Immunosuppression Oncologic (Cancer) History: Reports: Non-Hodgkin's Lymphoma Dermatologic History: Reports: None - Infectious Disease History Infectious Disease History: Reports: Chicken Pox - Past Surgical History Head Surgeries/Procedures: Reports: None HEENT Surgical History: Reports: None Cardiovascular Surgical History: Reports: None Respiratory Surgical History: Reports: None GI Surgical History: Reports: None Male Surgical History: Reports: Other (See Below) Other Male Surgeries/Procedures: Shunt for Dialysis to Left Arm Endocrine Surgical History: Reports: None Neurological Surgical History: Reports: None Musculoskeletal Surgical History: Reports: None Oncologic Surgical History: Reports: None Dermatological Surgical History: Reports: None Social & Family History - Family History Family Medical History: Noncontributory - Caffeine Use Caffeine Use: Reports: None ED ROS GENERAL - Review of Systems Review Of Systems: ROS reveals no pertinent complaints other than HPI. ED EXAM, GENERAL - Physical Exam Exam: See Below (See dictation) Course - Vital Signs Last Recorded V/S: Last Vital Signs Temp 36.2 C 09/02/18 06:22 Pulse 83 09/02/18 06:37 Resp 31 H 09/02/18 06:37 BP 111/62 09/02/18 06:37 Pulse Ox 95 09/02/18 06:37 - Orders/Labs/Meds Orders: Active Orders 24 hr Category Date Time Status Cardiac Monitoring [RC] . DIRECTED Care 09/02/18 05:14 Active EKG Documentation Completion [RC] STAT Care 09/02/18 05:14 Active Oxygen Therapy, ED [RC] ASDIRECTED Care 09/02/18 05:14 Active Pulse Oximetry [RC] ASDIRECTED Care 09/02/18 05:14 Active RT Aerosol Therapy [RC] ASDIRECTED Care 09/02/18 05:14 Active Sodium Chloride 0.9% [Saline Flush] Med 09/02/18 05:14 Active 10 ml FLUSH ASDIRECTED PRN Sodium Chloride 0.9% [Saline Flush] Med 09/02/18 05:14 Active 2.5 ml FLUSH ASDIRECTED PRN cefTRIAXone [Rocephin in Dextrose,Iso-Osm 1 GM/50 ML] 1 Med 09/02/18 06:48 Active gm Premix Bag 1 bag IV ONETIME Saline Lock Insert [OM.PC] Stat Oth 09/02/18 05:14 Ordered Medication Orders Ceftriaxone Sodium/Dextrose 1 (gm/ Premix) 50 mls @ 100 mls/hr IV ONETIME ONE Stop: 09/02/18 07:17 Last Admin: 09/02/18 06:55 Dose: 100 mls/hr Sodium Chloride (Saline Flush) 10 ml FLUSH ASDIRECTED PRN PRN Reason: Keep Vein Open Sodium Chloride (Saline Flush) 2.5 ml FLUSH ASDIRECTED PRN PRN Reason: Keep Vein Open Labs: Laboratory Tests 09/02/18 09/02/18 09/02/18 Range/Units 05:45 05:45 05:45 WBC 11.43 H (4.0-11.0) K/uL RBC 2.43 L (4.50-5.90) M/uL Hgb 9.1 L (13.0-17.0) g/dL Hct 26.9 L (38.0-50.0) % MCV 110.7 H (80.0-98.0) fL MCH 37.4 H (27.0-32.0) pg MCHC 33.8 (31.0-37.0) g/dL RDW Std Deviation 57.5 (28.0-62.0) fl RDW Coeff of Landry 14 (11.0-15.0) % Plt Count 82 L (150-400) K/uL MPV 11.20 (7.40-12.00) fL Neut % (Auto) 92.3 H (48.0-80.0) % Lymph % (Auto) 3.0 L (16.0-40.0) % [place] % (Auto) 4.4 (0.0-15.0) % Eos % (Auto) 0.2 (0.0-7.0) % Baso % (Auto) 0.1 (0.0-1.5) % Neut # (Auto) 10.6 H (1.4-5.7) K/uL Lymph # (Auto) 0.3 L (0.6-2.4) K/uL [place] # (Auto) 0.5 (0.0-0.8) K/uL Eos # (Auto) 0.0 (0.0-0.7) K/uL Baso # (Auto) 0.0 (0.0-0.1) K/uL Nucleated RBC % 0.0 /100WBC Nucleated RBCs # 0 K/uL INR 2.87 Lactate (0.20-2.00) mmol/L Sodium 137 (136-148) mmol/L Potassium 4.1 (3.5-5.1) mmol/L Chloride 98 (98-107) mmol/L Carbon Dioxide 27.0 (21.0-32.0) mmol/L BUN 49 H (7.0-18.0) mg/dL Creatinine 10.6 H (0.8-1.3) mg/dL Est Cr Clr Drug Dosing 5.85 mL/min Estimated GFR (MDRD) 4.8 ml/min Glucose 135 H (74-106) mg/dL Calcium 8.6 (8.5-10.1) mg/dL Total Bilirubin 0.9 (0.2-1.0) mg/dL AST 42 H (15-37) IU/L ALT 63 (14-63) IU/L Alkaline Phosphatase 91 (46-116) U/L Troponin I < 0.050 (0.000-0.056) ng/mL B-Natriuretic Peptide (<100) PG/ML Total Protein 7.0 (6.4-8.2) g/dL Albumin 2.3 L (3.4-5.0) g/dL Globulin 4.7 H (2.6-4.0) g/dL Albumin/Globulin Ratio 0.5 L (0.9-1.6) 09/02/18 09/02/18 Range/Units 05:45 05:45 WBC (4.0-11.0) K/uL RBC (4.50-5.90) M/uL Hgb (13.0-17.0) g/dL Hct (38.0-50.0) % MCV (80.0-98.0) fL MCH (27.0-32.0) pg MCHC (31.0-37.0) g/dL RDW Std Deviation (28.0-62.0) fl RDW Coeff of Landry (11.0-15.0) % Plt Count (150-400) K/uL MPV (7.40-12.00) fL Neut % (Auto) (48.0-80.0) % Lymph % (Auto) (16.0-40.0) % [place] % (Auto) (0.0-15.0) % Eos % (Auto) (0.0-7.0) % Baso % (Auto) (0.0-1.5) % Neut # (Auto) (1.4-5.7) K/uL Lymph # (Auto) (0.6-2.4) K/uL [place] # (Auto) (0.0-0.8) K/uL Eos # (Auto) (0.0-0.7) K/uL Baso # (Auto) (0.0-0.1) K/uL Nucleated RBC % /100WBC Nucleated RBCs # K/uL INR Lactate 0.9 (0.20-2.00) mmol/L Sodium (136-148) mmol/L Potassium (3.5-5.1) mmol/L Chloride (98-107) mmol/L Carbon Dioxide (21.0-32.0) mmol/L BUN (7.0-18.0) mg/dL Creatinine (0.8-1.3) mg/dL Est Cr Clr Drug Dosing mL/min Estimated GFR (MDRD) ml/min Glucose (74-106) mg/dL Calcium (8.5-10.1) mg/dL Total Bilirubin (0.2-1.0) mg/dL AST (15-37) IU/L ALT (14-63) IU/L Alkaline Phosphatase (46-116) U/L Troponin I (0.000-0.056) ng/mL B-Natriuretic Peptide 149 H (<100) PG/ML Total Protein (6.4-8.2) g/dL Albumin (3.4-5.0) g/dL Globulin (2.6-4.0) g/dL Albumin/Globulin Ratio (0.9-1.6) Meds: Medications Generic Name Dose Route Start Last Admin Trade Name Freq PRN Reason Stop Dose Admin Ceftriaxone Sodium/Dextrose 1 50 mls @ 100 mls/hr 09/02/18 06:48 09/02/18 06: 55 gm/ Premix IV 09/02/18 07:17 100 mls/hr ONETIME ONE Administration Sodium Chloride 10 ml 09/02/18 05:14 Saline Flush FLUSH ASDIRECTED PRN Keep Vein Open Sodium Chloride 2.5 ml 09/02/18 05:14 Saline Flush FLUSH ASDIRECTED PRN Keep Vein Open Discontinued Medications Generic Name Dose Route Start Last Admin Trade Name Michelle PRN Reason Stop Dose Admin Albuterol/Ipratropium 3 ml 09/02/18 05:14 09/02/18 05:29 Duoneb 3.0-0.5 Mg/3 Ml NEB 09/02/18 05:15 3 ml ONETIME ONE Administration Departure - Departure Time of Disposition: 07:01 Disposition: DC/Tfer to Acute Hospital 02 Condition: Good Clinical Impression: End stage renal disease, Right pulmonary infiltrate on CXR Congestive heart failure Qualifiers: Heart failure type: unspecified Heart failure chronicity: unspecified Qualified Code(s): I50.9 - Heart failure, unspecified - Discharge Information Referrals: PCP,None [Primary Care Provider] - - My Orders Last 24 Hours: My Active Orders 09/02/18 05:14 Cardiac Monitoring [RC] . DIRECTED EKG Documentation Completion [RC] STAT Oxygen Therapy, ED [RC] ASDIRECTED Pulse Oximetry [RC] ASDIRECTED RT Aerosol Therapy [RC] ASDIRECTED Sodium Chloride 0.9% [Saline Flush] 10 ml FLUSH ASDIRECTED PRN Sodium Chloride 0.9% [Saline Flush] 2.5 ml FLUSH ASDIRECTED PRN Saline Lock Insert [OM.PC] Stat 09/02/18 06:48 cefTRIAXone [Rocephin in Dextrose,Iso-Osm 1 GM/50 ML] 1 gm Premix Bag 1 bag IV ONETIME - Assessment/Plan Last 24 Hours: My Active Orders 09/02/18 05:14 Cardiac Monitoring [RC] . DIRECTED EKG Documentation Completion [RC] STAT Oxygen Therapy, ED [RC] ASDIRECTED Pulse Oximetry [RC] ASDIRECTED RT Aerosol Therapy [RC] ASDIRECTED Sodium Chloride 0.9% [Saline Flush] 10 ml FLUSH ASDIRECTED PRN Sodium Chloride 0.9% [Saline Flush] 2.5 ml FLUSH ASDIRECTED PRN Saline Lock Insert [OM.PC] Stat 09/02/18 06:48 cefTRIAXone [Rocephin in Dextrose,Iso-Osm 1 GM/50 ML] 1 gm Premix Bag 1 bag IV ONETIME
[2018-09-02] MEDS ORDERED: Albuterol/Ipratropium 3.0-0.5 MG/3 ML Neb Soln NEB ONE (05:14)
[2018-09-02] MEDS ORDERED: Sodium Chloride 0.9% 2.5 ML Syringe FLUSH PRN (05:14)
[2018-09-02] MEDS ORDERED: Sodium Chloride 0.9% 10 ML Syringe FLUSH PRN (05:14)
--- NOTE | 2018-09-02 05:54 | CR ---
INDICATION: 1 image. prior sent. shortness of breath INDICATION: Shortness of breath TECHNIQUE: Chest 2 views. COMPARISON: 08/30/2018 FINDINGS: Cardiovascular and mediastinum: Heart size and vasculature are normal in caliber and appearance. Mediastinum is within normal limits. Stable positioning of left-sided infusion catheter and right [id number]. Lungs and pleural spaces: Increased opacity right mid lung and right lower lobe. Findings may represent infiltrate or congestive changes. No sign of pleural effusion. No pneumothorax. Bones and soft tissues: No significant findings. IMPRESSION: Right midlung and right lower lobe opacity. Findings may represent infiltrate or congestive changes. Dictated by Claudio Devlin MD @ 09/02/2018 5:52:01 AM Dictated by: Claudio Devlin MD @ 09/02/2018 05:52:11 (Electronically Signed)
[2018-09-02 06:32] LABS: CHLORIDE,CL 98 mmol/L (98-107); SODIUM,NA 137 mmol/L (136-148)
[2018-09-02] MEDS ORDERED: cefTRIAXone 1 GM in Premix Bag 1 BAG IV ONE (06:48)
[2018-09-02 07:31] VITALS: BP 100/58
== END 2018-09-02 08:15 ==
LOC: MW.ED 05:00
DX: I50.9 Heart failure, unspecified (principal); N18.6 End stage renal disease; R91.8 Other nonspecific abnormal finding of lung field; I48.91 Unspecified atrial fibrillation; C85.90 Non-Hodgkin lymphoma, unspecified, unspecified site; Z99.2 Dependence on renal dialysis; Z79.01 Long term (current) use of anticoagulants; Z79.899 Other long term (current) drug therapy
CPT/HCPCS: 36415; 71045; 80053; 83605; 83880; 84484; 85025; 85610; 93005; 94640; 96365; 99285; J0696; 99284; J7620-GY

== ENCOUNTER 2019-02-03 06:42 | Day surgery (SDC) | payer MEDICARE, BC ==
[~2019-02-03 06:42] MED LIST: Bupivacaine 0.5% 10 ML SDV ONE; Lactated Ringers 1,000 ML IV SCH; Lidocaine 1% 20 ML MDV ONE
--- NOTE | 2019-02-03 07:10 | PCM.PREANE ---
Preanesthetic Assessment - Anesthesia/Transfusion/Family Hx Anesthesia History: Prior Anesthesia Without Reaction Family History of Anesthesia Reaction: No Transfusion History: Prior Transfusion Without Reaction Intubation History: Unknown - Review of Systems General: No Symptoms Pulmonary: No Symptoms Cardiovascular: No Symptoms Gastrointestinal: No Symptoms Neurological: No Symptoms Other: Reports: None - Physical Assessment Height: 5 ft 6 in Weight: 90.265 kg ASA Class: 3 Mental Status: Alert & Oriented x3 Airway Class: Mallampati = 3 Dentition: Reports: Missing Tooth/Teeth (6 teeth left) Thyro-Mental Finger Breadths: 3 Mouth Opening Finger Breadths: 2 (small mouth) ROM/Head Extension: Limited/Partial Lungs: Clear to Auscultation, Normal Respiratory Effort, Crackles Cardiovascular: Regular Rate, Regular Rhythm - Allergies Allergies/Adverse Reactions: Allergies Allergy/AdvReac Type Severity Reaction Status Date / Time No Known Allergies Allergy Verified 01/26/19 15:00 - Blood Blood Available: No - Anesthesia Plan Pre-Op Medication Ordered: None - Acknowledgements Anesthesia Type Planned: MAC Pt an Appropriate Candidate for the Planned Anesthesia: Yes Alternatives and Risks of Anesthesia Discussed w Pt/Guardian: Yes Pt/Guardian Understands and Agrees with Anesthesia Plan: Yes PreAnesthesia Questionnaire HEENT History: Reports: Impaired Vision Other HEENT History: wears glasses Cardiovascular History: Reports: Afib, Blood Clots/VTE/DVT, Cardiomyopathy, Hypertension Other Cardiovascular History: hx DVT to lower extremity Respiratory History: Reports: Pneumonia, Recurrent Other Respiratory History: SOB after 2 blocks, denies diagnosis of asthma or COPD Gastrointestinal History: Reports: GERD Genitourinary History: Reports: Renal Disease, Other (See Below) Other Genitourinary History: end stage renal disease, on dialysis wed- Musculoskeletal History: Reports: None Neurological History: Reports: None Psychiatric History: Reports: None Endocrine/Metabolic History: Reports: Obesity/BMI 30+ Hematologic History: Reports: Anticoagulation Therapy, Blood Transfusion(s) Immunologic History: Reports: Immunosuppression Oncologic (Cancer) History: Reports: Non-Hodgkin's Lymphoma (in 1999 and again in 2013) Dermatologic History: Reports: Other (See Below) Other Dermatologic History: hx shingles - Infectious Disease History Infectious Disease History: Reports: Chicken Pox - Past Surgical History Head Surgeries/Procedures: Reports: None HEENT Surgical History: Reports: Tonsillectomy Cardiovascular Surgical History: Reports: None Respiratory Surgical History: Reports: None GI Surgical History: Reports: Appendectomy Male Surgical History: Reports: Other (See Below) Other Male Surgeries/Procedures: dyalisis port, shunt for dialysis to Left arm Endocrine Surgical History: Reports: None Neurological Surgical History: Reports: None Musculoskeletal Surgical History: Reports: None Oncologic Surgical History: Reports: Other (See Below) Other Oncologic Surgeries/Procedures: rt karo cath placement, hx stem cell transplant Dermatological Surgical History: Reports: None - SUBSTANCE USE Smoking Status *Q: Never Smoker Recreational Drug Use History: No - HOME MEDS Home Medications: Home Meds Acetaminophen [Pain Relief] 500 mg PO TID PRN 10/16/13 [History] Acyclovir 400 mg PO BID 10/16/13 [History] Magnesium Oxide 800 mg PO BID 10/16/13 [History] Pregabalin [Lyrica] 200 mg PO DAILY 10/16/13 [History] Omeprazole [priLOSEC OTC] 20 mg PO DAILY 05/26/14 [History] Warfarin [Coumadin] 5 mg PO DAILY 05/26/14 [History] Cholecalciferol (Vitamin D3) [Vitamin D3] 2,000 unit PO ASDIRECTED 03/02/17 [ History] Metoprolol Succinate 50 tab PO BID 09/02/18 [History] Torsemide 50 mg PO ASDIRECTED 09/02/18 [History] Calcium Carbonate [Tums Extra Strength] 1,000 mg CHEW BEDTIME 01/26/19 [History] Fluticasone/Vilanterol [Breo Ellipta 200-25 MCG Inhalation Kit] 1 inhalation INH DAILY 01/26/19 [History] Multivitamin [Multivitamins] 1 tab PO BID 01/26/19 [History] Sodium Chloride [Saline Nasal Mcgregor] 1 spray NASBOTH ASDIRECTED PRN 01/26/19 [ History] - CURRENT (IN HOUSE) MEDS Current Meds: Current Medications Lactated Ringer's (Ringers, Lactated) 1,000 mls @ 125 mls/hr IV ASDIRECTED [facility] Discontinued Medications Bupivacaine HCl (Sensorcaine-Mpf 0.5%) Confirm Administered Dose 20 ml .ROUTE .STK-MED ONE Stop: 01/31/19 08:30 Lactated Ringer's (Ringers, Lactated) 1,000 mls @ 125 mls/hr IV ASDIRECTED [facility] Lidocaine HCl (Xylocaine 1%) Confirm Administered Dose 20 ml .ROUTE .[facility] Stop: 01/31/19 08:30
[2019-02-03] MEDS ORDERED: Propofol 200 MG/20 ML SDV ONE (07:30)
[2019-02-03] MEDS ORDERED: Bupivacaine 0.5% 30 ML SDV ONE (07:31)
[2019-02-03] MEDS ORDERED: Lidocaine 1% 20 ML MDV ONE (07:35)
[2019-02-03] MEDS ORDERED: Bupivacaine 0.5% 10 ML SDV ONE (07:44)
[2019-02-03] MEDS ORDERED: Sodium Chloride 0.9% 1,000 ML IV SCH (07:45)
--- NOTE | 2019-02-03 08:55 | PCM.OPNOTE ---
- General Post-Op/Procedure Note Date of Surgery/Procedure: 02/03/19 Operative Procedure(s): Removal of Francisco dialysis catheter Pre Op Diagnosis: End-stage renal disease. Bacteremia associated with intravenous line. COPD. Post-Op Diagnosis: Same Anesthesia Technique: Local, MAC (ASA III) Primary Surgeon: Skinny Lipscomb Fluid Replacement, Intraop: 300 EBL in mLs: 5 Condition: Good Free Text/Narrative:: DICTATION [id number] CPT CODE 51535
[2019-02-03] MEDS ORDERED: Lactated Ringers 1,000 ML IV SCH (09:00)
--- NOTE | 2019-02-03 09:13 | PCM.POSTAN ---
POST ANESTHESIA ASSESSMENT - MENTAL STATUS Mental Status: Alert, Oriented - VITAL SIGNS Vital Signs: Last Vital Signs Temp 98.9 C H 02/03/19 08:40 Pulse 55 L 02/03/19 08:55 Resp 14 02/03/19 08:55 BP 143/64 H 02/03/19 08:55 Pulse Ox 97 02/03/19 08:55 - RESPIRATORY Respiratory Status: Respiratory Rate WNL, Airway Patent, O2 Saturation Stable - CARDIOVASCULAR CV Status: Pulse Rate WNL, Blood Pressure Stable - GASTROINTESTINAL GI Status: No Symptoms - PAIN Pain Score: 0 - POST OP HYDRATION Hydration Status: Adequate & Stable - OBSERVATIONS Free Text/Narrative:: no anesthesia problems
[2019-02-03 09:19] VITALS: BP 143/66
--- NOTE | 2019-02-03 09:24 | PCM48HPAN ---
Post Anesthesia Note - EVALUATION WITHIN 48HRS OF ANESTHETIC Vital Signs in Normal Range: Yes Patient Participated in Evaluation: Yes Respiratory Function Stable: Yes Airway Patent: Yes Cardiovascular Function Stable: Yes Hydration Status Stable: Yes Pain Control Satisfactory: Yes Nausea and Vomiting Control Satisfactory: Yes Mental Status Recovered: Yes Vital Signs: Last Vital Signs Temp 36.4 C 02/03/19 09:08 Pulse 52 L 02/03/19 09:08 Resp 16 02/03/19 09:08 BP 143/66 H 02/03/19 09:08 Pulse Ox 99 02/03/19 09:08 - COMMENTS/OBSERVATIONS Free Text/Narrative:: no anesthesia problems
--- NOTE | 2019-02-03 11:44 | OR ---
SURGEON: Skinny Lipscomb M.D. DATE OF PROCEDURE: 02/03/2019 OPERATION PERFORMED: Removal of dialysis catheter, left chest. PRIMARY SURGEON: Skinny Lipscomb M.D. ANESTHESIA: Local MAC. ASA CLASSIFICATION: III. PREOPERATIVE DIAGNOSES: 1. Chronic renal failure with functioning arteriovenous shunt. 2. IV access device bacteremia. POSTOPERATIVE DIAGNOSES: 1. Chronic renal failure with functioning arteriovenous shunt. 2. IV access device bacteremia. ESTIMATED BLOOD LOSS: 5 mL. INTRAOPERATIVE FLUID REPLACEMENT: 300 mL. ANESTHESIA: Local MAC. DESCRIPTION OF PROCEDURE: The patient was taken to the operating room and placed on the operating table in the supine position. Time-out was called for appropriate identification of the patient and procedure. The surgical site had been marked prior to the patient entering the operating room. The left chest was now prepped with Betadine solution, and sterile drapes were applied. The catheter was measured to locate the Dacron cuff. The skin overlying the catheter was then infiltrated with 1% Xylocaine and 0.5% Marcaine solution. The skin incision was made directly over the cuff, which was freed up with a combination of sharp and blunt dissection and electrocautery. The entire catheter was then removed as 1 piece. Small bleeding sites were electrocoagulated. Pressure was held at the internal jugular site for 2 minutes. When pressure was released, there was no bleeding. The wound was again inspected for hemostasis and small bleeding sites were electrocoagulated. The incision was closed in 2 layers approximating the subcutaneous tissue with 3-0 Vicryl and the skin with subcuticular 4-0 Monocryl. The incision was Steri-Stripped and dressed with a sterile Tegaderm pad. Sponge, needle, and instrument counts were all correct. The patient tolerated the procedure well and was taken to recovery room in stable condition. CHANTAL / EFREM /[id number]
== END 2019-02-03 09:36 | disposition home or self-care (01) ==
LOC: MW.SDS 06:42
PROVIDERS: ATTEND Surgery
DX: T82.7XXA Infection and inflammatory reaction due to other cardiac and vascular devices, implants and grafts, initial encounter (principal); R78.81 Bacteremia; I13.2 Hypertensive heart and chronic kidney disease with heart failure and with stage 5 chronic kidney disease, or end stage renal disease; N18.6 End stage renal disease; I50.9 Heart failure, unspecified; I48.91 Unspecified atrial fibrillation; J44.9 Chronic obstructive pulmonary disease, unspecified; K21.9 Gastro-esophageal reflux disease without esophagitis; C85.90 Non-Hodgkin lymphoma, unspecified, unspecified site; Q60.0 Renal agenesis, unilateral; Z68.31 Body mass index [BMI] 31.0-31.9, adult; Z99.2 Dependence on renal dialysis; Z79.01 Long term (current) use of anticoagulants; Z79.51 Long term (current) use of inhaled steroids; Z79.899 Other long term (current) drug therapy; Z86.711 Personal history of pulmonary embolism
CPT/HCPCS: 36589; 87070; 87205; J2001; J2704; J3490; J7040

== ENCOUNTER 2021-03-21 16:06 | Emergency (ER) | payer MEDICARE, BC ==
[2021-03-21] MEDS ORDERED: Sodium Chloride 0.9% 2.5 ML Syringe FLUSH PRN (16:44)
[2021-03-21] MEDS ORDERED: Sodium Chloride 0.9% 10 ML Syringe FLUSH PRN (16:44)
--- NOTE | 2021-03-21 16:49 | EDM.PDOC ---
<Gurmeet Mei - Last Filed: 03/21/21 19:11> ED HPI GENERAL MEDICAL PROBLEM - General Stated Complaint: DIALYSIS REFERRAL, HEMOGLOBIN LOW Time Seen by Provider: 03/21/21 16:24 - History of Present Illness INITIAL COMMENTS - FREE TEXT/NARRATIVE: History of present illness: [] Patient has been lightheaded and dizzy off and on for a few days. Today he is better. At dialysis he had completion of his dialysis and then he was told he needs to come to the emergency room because his hemoglobin today was 6.5. They tell me they will fax the lab over. The patient has been transfused in the past. The patient has no melena or red stool. He is on warfarin. His last INR was slightly elevated and he supposed to follow-up in 3 days to consider adjusting his warfarin. Review of systems: As per history of present illness and below otherwise all systems reviewed and negative. Past medical history: As per history of present illness and as reviewed below otherwise noncontributory. Surgical history: As per history of present illness and as reviewed below otherwise noncontributory. Social history: No reported history of drug or alcohol abuse. Family history: As per history of present illness and as reviewed below otherwise noncontributory. Physical exam: Constitutional - well developed, well-nourished and in no acute distress HEENT - normocephalic, no evidence of trauma - external nose and mouth normal - no mass in neck and no JVD - mucosae moist EYES - full EOM, PERRL, no icterus - no evidence of inflammation, injection, or drainage Respiratory - no respiratory distress, equal bilateral expansion, lungs clear to auscultation and no abnormal lung sounds Cardiovascular - Regular Rhythm with S1 and S2 appreciated and no murmur, gallop or rub. GI - abdomen soft without distension or organomegaly - normal bowel sounds - no guard or rebound Musculoskeletal no gross deformity of long bones or joints - no tenderness, swelling or edema Neurologic - Alert and oriented times four - CN II-XII grossly intact - motor sensory and coordination symmetrically normal Psychiatric - appropriate mood and affect with normal thought content Hematologic - No petechiae or purpura - mucosa appropriate color and sclera not pale - normal nail bed color and refill Integument - no rash or evidence of trauma - normal turgor Diagnostics: [] Therapeutics: [] Impression: [] Plan: [] Definitive disposition and diagnosis as appropriate pending reevaluation and review of above. - Related Data Allergies Allergy/AdvReac Type Severity Reaction Status Date / Time No Known Allergies Allergy Verified 03/21/21 17:20 Home Meds: Home Meds Acetaminophen [Pain Relief] 500 mg PO TID PRN 10/16/13 [History] Acyclovir 400 mg PO BID 10/16/13 [History] Magnesium Oxide 800 mg PO BID 10/16/13 [History] Pregabalin [Lyrica] 200 mg PO DAILY 10/16/13 [History] Omeprazole [priLOSEC OTC] 20 mg PO DAILY 05/26/14 [History] Warfarin [Coumadin] 5 mg PO DAILY 05/26/14 [History] Cholecalciferol (Vitamin D3) [Vitamin D3] 2,000 unit PO ASDIRECTED 03/02/17 [History] Metoprolol Succinate 50 tab PO BID 09/02/18 [History] Torsemide 50 mg PO ASDIRECTED 09/02/18 [History] Calcium Carbonate [Tums Extra Strength] 1,000 mg CHEW BEDTIME 01/26/19 [History] Fluticasone/Vilanterol [Breo Ellipta 200-25 MCG Inhalation Kit] 1 inhalation INH DAILY 01/26/19 [History] Multivitamin [Multivitamins] 1 tab PO BID 01/26/19 [History] Sodium Chloride [Saline Nasal [place]] 1 spray NASBOTH ASDIRECTED PRN 01/26/19 [History] Past Medical History HEENT History: Reports: Impaired Vision Other HEENT History: wears glasses Cardiovascular History: Reports: Afib, Blood Clots/VTE/DVT, Cardiomyopathy, Hypertension Other Cardiovascular History: hx DVT to lower extremity Respiratory History: Reports: Pneumonia, Recurrent Other Respiratory History: SOB after 2 blocks, denies diagnosis of asthma or COPD Gastrointestinal History: Reports: GERD Genitourinary History: Reports: Renal Disease, Other (See Below) Other Genitourinary History: end stage renal disease, on dialysis wed-wed-wed Musculoskeletal History: Reports: None Neurological History: Reports: None Psychiatric History: Reports: None Endocrine/Metabolic History: Reports: Obesity/BMI 30+ Hematologic History: Reports: Anticoagulation Therapy, Blood Transfusion(s) Immunologic History: Reports: Immunosuppression Oncologic (Cancer) History: Reports: Non-Hodgkin's Lymphoma (in 2000 and again in 2014) Dermatologic History: Reports: Other (See Below) Other Dermatologic History: hx shingles - Infectious Disease History Infectious Disease History: Reports: Chicken Pox - Past Surgical History Head Surgeries/Procedures: Reports: None HEENT Surgical History: Reports: Tonsillectomy Cardiovascular Surgical History: Reports: None Respiratory Surgical History: Reports: None GI Surgical History: Reports: Appendectomy Male Surgical History: Reports: Other (See Below) Other Male Surgeries/Procedures: dyalisis port, shunt for dialysis to Left arm Endocrine Surgical History: Reports: None Neurological Surgical History: Reports: None Musculoskeletal Surgical History: Reports: None Oncologic Surgical History: Reports: Other (See Below) Other Oncologic Surgeries/Procedures: rt karo cath placement, hx stem cell transplant Dermatological Surgical History: Reports: None Social & Family History - Family History Family Medical History: No Pertinent Family History - Caffeine Use Caffeine Use: Reports: None Course - Re-Assessments/Exams Free Text/Narrative Re-Assessment/Exam: 03/21/21 19:13 At the end of my shift I turned the patient over to my partner who will make sure that the transfusion goes smoothly with no adverse effect and let the patient go home to be followed by his primary care doctor and microstrategy developer. Departure - Departure Disposition: Home, Self-Care 01 Condition: Good Clinical Impression: Anemia, Chronic renal failure - Discharge Information Instructions: Anemia Referrals: Ubaldo Acosta MD [Primary Care Provider] - Additional Instructions: Make sure you get in touch with your primary doctor and your microstrategy developer so that if you need recurrent transfusions they can arrange this to happen so that you do not have to come to the emergency department as though it is a surprise. He also need to have someone check to make sure that you do not have GI blood lo ss. Your doctor should give you Hemoccult cards and let you put stool specimens on it. [facility] [address] [place] [id number] [facility] [address] [place] [address] The following information is given to patients seen in the emergency department who are being discharged to home. This information is to outline your options for follow-up care. We provide all patients seen in our emergency department with a follow-up referral. The need for follow-up, as well as the timing and circumstances, are variable depending upon the specifics of your emergency department visit. If you don't have a primary care physician on staff, we will provide you with a referral. We always advise you to contact your personal physician following an emergency department visit to inform them of the circumstance of the visit and for follow-up with them and/or the need for any referrals to a consulting specialist. The emergency department will also refer you to a specialist when appropriate. This referral assures that you have the opportunity for follow-up care with a specialist. All of these measure are taken in an effort to provide you with optimal care, which includes your follow-up. Under all circumstances we always encourage you to contact your private physician who remains a resource for coordinating your care. When calling for follow-up care, please make the office aware that this follow-up is from your recent emergency room visit. If for any reason you are refused follow-up, please contact the [facility] Emergency Department at and asked to speak to the emergency department charge nurse. <Jah Mills - Last Filed: 03/21/21 20:55> ED ROS GENERAL - Review of Systems Review Of Systems: See Below ED EXAM, GENERAL - Physical Exam Exam: See Below Course - Vital Signs Last Recorded V/S: Last Vital Signs Temp 97 F 03/21/21 17:14 Pulse 98 03/21/21 17:14 Resp 20 03/21/21 17:14 BP 145/101 H 03/21/21 17:14 Pulse Ox 98 03/21/21 17:14 - Orders/Labs/Meds Orders: Active Orders 24 hr Category Date Time Status RED BLOOD CELLS LP [BBK] Stat Lab 03/21/21 17:11 Results TYPE AND SCREEN [BBK] Stat Lab 03/21/21 17:11 Results Sodium Chloride 0.9% [Saline Flush] Med 03/21/21 16:44 Active 10 ml FLUSH ASDIRECTED PRN Sodium Chloride 0.9% [Saline Flush] Med 03/21/21 16:44 Active 2.5 ml FLUSH ASDIRECTED PRN Saline Lock Insert [OM.PC] Stat [facility] 03/21/21 16:44 Ordered Transfuse PRBC [Transfuse Red Blood Cells] [COMM] Stat Ot 03/21/21 16:45 Ordered Medication Orders Sodium Chloride (Sodium Chloride 0.9% 10 Ml Syringe) 10 ml FLUSH ASDIRECTED PRN PRN Reason: Keep Vein Open Sodium Chloride (Sodium Chloride 0.9% 2.5 Ml Syringe) 2.5 ml FLUSH ASDIRECTED PRN PRN Reason: Keep Vein Open Labs: Laboratory Tests 03/21/21 03/21/21 03/21/21 Range/Units 17:11 17:11 17:11 WBC 5.29 (4.0-11.0) K/uL RBC 1.88 L (4.50-5.90) M/uL Hgb 6.5 L (13.0-17.0) g/dL Hct 19.3 L (38.0-50.0) % MCV 102.7 H (80.0-98.0) fL MCH 34.6 H (27.0-32.0) pg MCHC 33.7 (31.0-37.0) g/dL RDW Std Deviation 63.0 H (28.0-62.0) fl RDW Coeff of Landry 17 H (11.0-15.0) % Plt Count 109 MPV 11.60 (7.40-12.00) fL Neut % (Auto) 84.1 H (48.0-80.0) % Lymph % (Auto) 4.0 L (16.0-40.0) % Henry % (Auto) 6.8 (0.0-15.0) % Eos % (Auto) 4.2 (0.0-7.0) % Baso % (Auto) 0.9 (0.0-1.5) % Neut # (Auto) 4.5 (1.4-5.7) K/uL Lymph # (Auto) 0.2 L (0.6-2.4) K/uL Henry # (Auto) 0.4 (0.0-0.8) K/uL Eos # (Auto) 0.2 (0.0-0.7) K/uL Baso # (Auto) 0.1 (0.0-0.1) K/uL Nucleated RBC % 0.0 /100WBC Nucleated RBCs # 0 K/uL INR 1.65 Sodium 139 (136-148) mmol/L Potassium 3.8 (3.5-5.1) mmol/L Chloride 102 (98-107) mmol/L Carbon Dioxide 27.3 (21.0-32.0) mmol/L BUN 12 (7.0-18.0) mg/dL Creatinine 3.8 H (0.8-1.3) mg/dL Est Cr Clr Drug Dosing 15.62 mL/min Estimated GFR (MDRD) 15.7 ml/min Glucose 122 H (74-106) mg/dL Calcium 8.1 L (8.5-10.1) mg/dL Total Bilirubin 0.4 (0.2-1.0) mg/dL AST 21 (15-37) IU/L ALT 18 (14-63) IU/L Alkaline Phosphatase 82 (46-116) U/L Total Protein 6.2 L (6.4-8.2) g/dL Albumin 2.6 L (3.4-5.0) g/dL Globulin 3.6 (2.6-4.0) g/dL Albumin/Globulin Ratio 0.7 L (0.9-1.6) Blood Type Antibody Screen Crossmatch 03/21/21 03/21/21 Range/Units 17:11 20:29 WBC (4.0-11.0) K/uL RBC (4.50-5.90) M/uL Hgb 7.4 L (13.0-17.0) g/dL Hct 22.2 L (38.0-50.0) % MCV (80.0-98.0) fL MCH (27.0-32.0) pg MCHC (31.0-37.0) g/dL RDW Std Deviation (28.0-62.0) fl RDW Coeff of Landry (11.0-15.0) % Plt Count MPV (7.40-12.00) fL Neut % (Auto) (48.0-80.0) % Lymph % (Auto) (16.0-40.0) % Henry % (Auto) (0.0-15.0) % Eos % (Auto) (0.0-7.0) % Baso % (Auto) (0.0-1.5) % Neut # (Auto) (1.4-5.7) K/uL Lymph # (Auto) (0.6-2.4) K/uL Henry # (Auto) (0.0-0.8) K/uL Eos # (Auto) (0.0-0.7) K/uL Baso # (Auto) (0.0-0.1) K/uL Nucleated RBC % /100WBC Nucleated RBCs # K/uL INR Sodium (136-148) mmol/L Potassium (3.5-5.1) mmol/L Chloride (98-107) mmol/L Carbon Dioxide (21.0-32.0) mmol/L BUN (7.0-18.0) mg/dL Creatinine (0.8-1.3) mg/dL Est Cr Clr Drug Dosing mL/min Estimated GFR (MDRD) ml/min Glucose (74-106) mg/dL Calcium (8.5-10.1) mg/dL Total Bilirubin (0.2-1.0) mg/dL AST (15-37) IU/L ALT (14-63) IU/L Alkaline Phosphatase (46-116) U/L Total Protein (6.4-8.2) g/dL Albumin (3.4-5.0) g/dL Globulin (2.6-4.0) g/dL Albumin/Globulin Ratio (0.9-1.6) Blood Type A NEGATIVE Antibody Screen NEGATIVE Crossmatch See Detail Meds: Medications Generic Name Dose Route Start Last Admin Trade Name Freq PRN Reason Stop Dose Admin Sodium Chloride 10 ml 03/21/21 16:44 Sodium Chloride 0.9% 10 Ml Syringe FLUSH ASDIRECTED PRN Keep Vein Open Sodium Chloride 2.5 ml 03/21/21 16:44 Sodium Chloride 0.9% 2.5 Ml Syringe FLUSH ASDIRECTED PRN Keep Vein Open Departure - Departure Time of Disposition: 20:55 Condition: Good - Discharge Information *PRESCRIPTION DRUG MONITORING PROGRAM REVIEWED*: Not Applicable *COPY OF PRESCRIPTION DRUG MONITORING REPORT IN PATIENT BETH: Not Applicable Sepsis Event Note (ED) - Focused Exam Vital Signs: Vital Signs Temp Pulse Resp BP Pulse Ox 03/21/21 17:14 97 F 98 20 145/101 H 98 - Assessment/Plan Assessment:: Patient received in signout from prior provider at 7 PM. Plan was for repeat hemoglobin after transfusion. Patient was given a unit of packed cells and hemoglobin now acceptable at 7.4. Though still somewhat low given the national blood shortage I would not transfuse additional units at this time. Patient felt safe for discharge he will continue to follow-up with his outpatient providers.
[2021-03-21 18:07] LABS: CARBON DIOXIDE,CO2 27.3 mmol/L (21.0-32.0); POTASSIUM,K 3.8 mmol/L (3.5-5.1)
[2021-03-21 21:19] VITALS: BP 159/81; PULSE 103
== END 2021-03-21 21:05 | disposition home or self-care (01) ==
LOC: MW.ED 16:06
DX: I12.0 Hypertensive chronic kidney disease with stage 5 chronic kidney disease or end stage renal disease (principal); N18.6 End stage renal disease; D63.1 Anemia in chronic kidney disease; I48.91 Unspecified atrial fibrillation; K21.9 Gastro-esophageal reflux disease without esophagitis; E66.9 Obesity, unspecified; Z68.29 Body mass index [BMI] 29.0-29.9, adult; Z86.718 Personal history of other venous thrombosis and embolism; Z79.01 Long term (current) use of anticoagulants; Z79.899 Other long term (current) drug therapy
CPT/HCPCS: 36415; 36430; 80053; 85014; 85018; 85025; 85610; 86850; 86900; 86901; 86920; 86921; 86922; 99284; P9016

== ENCOUNTER 2021-05-04 09:03 | Emergency (ER) | payer MEDICARE, BC ==
[2021-05-04] MEDS ORDERED: Sodium Chloride 0.9% 10 ML Syringe FLUSH PRN (10:06)
[2021-05-04] MEDS ORDERED: Sodium Chloride 0.9% 2.5 ML Syringe FLUSH PRN (10:06)
--- NOTE | 2021-05-04 10:27 | PCM.EKG ---
#1 Interpretation EKG Date: 05/04/21 Time: 10:20 EKG Interpretation Comments: EKG: As interpreted by ER physician: Jigar: Nonspecific ST-T wave abnormalities Normal axis No evidence of ST elevation NM Atrial fibrillation with a heart of 98
[2021-05-04] MEDS ORDERED: Albuterol/Ipratropium 3.0-0.5 MG/3 ML Neb Soln NEB ONE ×2 (10:40→13:15)
[2021-05-04] MEDS ORDERED: methylPREDNISolone Sodium Succinate 125 MG/2 ML SDV IVPUSH ONE ×2 (10:40→13:15)
--- NOTE | 2021-05-04 10:53 | CR ---
Indication: Shortness of breath 07/04/2019. Technique: Chest 1 view. Comparison: None. Findings/Impression: Cardiovascular and mediastinum: Heart size and vasculature are normal in caliber and appearance. Lungs and pleural space: Suspected right lower lobe pneumonia with a small parapneumonic effusion. Left lung and pleural space appear clear. No pneumothorax. Bones and soft tissues: No acute findings. Dictated by Connor Esteves MD @ 05/04/2021 10:52:42 AM (Electronically Signed)
--- NOTE | 2021-05-04 11:04 | EDM.PDOC ---
ED HPI GENERAL MEDICAL PROBLEM - General Chief Complaint: Respiratory Problem Stated Complaint: PT HAVING TROUBLE BREATHING AT NIGHT Time Seen by Provider: 05/04/21 10:03 Source of Information: Reports: Patient History Limitations: Reports: No Limitations - History of Present Illness INITIAL COMMENTS - FREE TEXT/NARRATIVE: HISTORY AND PHYSICAL: History of present illness: Patient is a 71-year-old male with a complicated medical history including non- Hodgkin's lymphoma, end-stage kidney failure on dialysis (Fridays, last received dialysis Wednesday), atrial fibrillation on warfarin, congestive heart failure, prior DVT, and hypertension, who presents emergency room today with concern of feeling short of breath has been ongoing for the past 1 month. Patient states that his shortness of breath is worse at night and he was given oxygen to wear after a recent pneumonia but states that this has not been helping. Patient states that he was recently diagnosed with pneumonia and was placed on Levaquin. Patient states he just finished the Levaquin about a week ago but states that he did not notice any change in his shortness of breath and has continued to feel this way. He states that he was placed on this by his oncologist. Patient states that he typically takes a chemo pill for a month and then has a few days off and takes the chemo pill again but states that he has not been on the chemo pill for the past 1 month as he has been on antibiotics for the pneumonia. The plan was to get him started back on them in another week or so. Patient denies fever, chills, chest pain, or cough. Denies headache, neck stiff ness, change in vision, syncope, or near syncope. Denies nausea, vomiting, abdominal pain, diarrhea, constipation, or dysuria. Has not noted any blood in urine or stool. Patient has been eating and drinking appropriately. Review of systems: As per history of present illness and below otherwise all systems reviewed and negative. Past medical history: As per history of present illness and as reviewed below otherwise noncontributory. Surgical history: As per history of present illness and as reviewed below otherwise noncontributory. Social history: See social history for further information Family history: As per history of present illness and as reviewed below otherwise noncontributory. Physical exam: General: Patient is alert, oriented, and in no acute distress. Patient laying comfortably on exam table. Vitals stable and reviewed by me. HEENT: Atraumatic, normocephalic, pupils equal and reactive bilaterally, negative for conjunctival pallor or scleral icterus, mucous membranes moist, throat clear, neck supple, nontender, trachea midline. No drooling or trismus noted. No meningeal signs. No hot potato voice noted. Lungs: Clear to auscultation, breath sounds equal bilaterally, chest nontender. Heart: S1S2, regular rate and rhythm without overt murmur Abdomen: Soft, nondistended, nontender. Negative for masses or hepatosplenomegaly. Negative for costovertebral tenderness. Pelvis: Stable nontender. Genitourinary: Deferred. Rectal: Deferred. Skin: Intact, warm, dry. No lesions or rashes noted. Extremities: Atraumatic, negative for cords or calf pain. Neurovascular unremarkable. Neuro: Awake, alert, oriented. Cranial nerves II through XII unremarkable. Cerebellum unremarkable. Motor and sensory unremarkable throughout. Exam nonfocal. Medical Decision Making: Patient is a 71-year-old male with a complicated medical history as detailed above who presents emergency room today with concern of shortness of breath x1 month, worse at night than during the day. Upon arrival to the ED, patient is vitally stable and well-appearing on exam. Patient does have a history of prior DVT and has cancer, he is at a high risk for pulmonary embolism. According to , he has had some intermittent hypoxia episodes. Because of this, will obtain IV access, cardiac evaluation, and obtain angiography CT of the chest. Patient does have dialysis tomorrow. See Dr. Kimball dictation for specific EKG interpretation, otherwise atrial fibrillation without STEMI. CBC does demonstrate anemia with red blood cells at 3.05, hemoglobin 10.2 and hematocrit of 31.4, this is stable in comparison to prior lab work on file. Patient does have macrocytic indices with MCV of 103, MCH 33.4, and RDW of 67.8. Patient is thrombocytopenic at 99, this does appear stable to prior lab work. INR is subtherapeutic at 1.84. CMP does show elevation of creatinine and BUN at 7.8 and 39, patient is on dialysis and receives dialysis tomorrow morning at 5 AM, this is anticipated end-stage kidney disease lab work. BNP is elevated at 2299. Patient does not have any pitting edema on exam and is able to lie flat without shortness of breath. Troponin negative. Influenza and Covid negative. Chest x-ray does show heart size and vasculature normal caliber and appearance. Suspected right lower lobe pneumonia with a small parapneumonic effusion. Left lung and pleural space clear. No pneumothorax. Angiography of the chest shows no changes from prior exam. No pulmonary embolism. Stable bilateral pleural effusions, no convincing evidence for pneumonia. Patient does have mild cardiomegaly with dilation of the left ventricle. He does have a large right-sided pleural effusion and moderate left-sided pleural effusion which are unchanged. On reevaluation of patient, he remains vitally stable and comfortable throughout stay in ED. He is consistently 95 to 96% on room air and breathing comfortably. I did discuss with patient that potentially his chronic difficulties with shortness of breath at night may be related to these large pleural effusions that he has on both lung spaces. These have been stable since prior imaging on April 21 and have not been larger and patient is vitally stable and breathing comfortably. I did discuss with patient possibly obtaining a therapeutic thoracentesis to drain off the fluid. Patient states he has never had this done before. I discussed with patient possibly setting this up in further discussion with his oncologist and primary care provider to get this procedure done on an outpatient basis. I also discussed with patient that his INR is subtherapeutic. He states that his goal range is 2-2-1/2. I discussed taking 1 extra tab today and patient states he gets his INR checked tomorrow. Patient also has dialysis tomorrow morning at 5 in the morning. I did offer admission to [facility] for observation but he declines. All risks vs benefits discussed with patient and expresses understanding. All signs and symptoms that were prompt return to the ED thoroughly discussed with patient. Discussed importance for follow-up with his primary care provider and oncologist. Voices understanding and is agreeable to plan of care. Denies any further questions or concerns at this time. Diagnostics: EKG, CBC, CMP, chest x-ray 1 view, troponin, angiography chest, Covid/influenza, magnesium, phosphorus, BNP Therapeutics: Saline lock, DuoNeb, Solu-Medrol Prescription: None Impression: Bilateral pleural effusions, stable, large Congestive heart failure Subtherapeutic INR Atrial fibrillation on anticoagulation Macrocytic anemia, stable Thrombocytopenia, stable Plan: Definitive disposition and diagnosis as appropriate pending reevaluation and review of above. - Related Data Allergies Allergy/AdvReac Type Severity Reaction Status Date / Time diphenhydramine Allergy Other Verified 05/04/21 09:41 [From Benadryl] Home Meds: Home Meds Acetaminophen [Pain Relief] 500 mg PO TID PRN 10/16/13 [History] Acyclovir 400 mg PO BID 10/16/13 [History] Magnesium Oxide 800 mg PO BID 10/16/13 [History] Pregabalin [Lyrica] 50 mg PO DAILY 10/16/13 [History] Omeprazole [priLOSEC OTC] 20 mg PO DAILY 05/26/14 [History] Warfarin [Coumadin] 5 mg PO DAILY 05/26/14 [History] Cholecalciferol (Vitamin D3) [Vitamin D3] 2,000 unit PO ASDIRECTED 03/02/17 [History] Metoprolol Succinate 50 tab PO BID 09/02/18 [History] Torsemide 40 mg PO ASDIRECTED 09/02/18 [History] Calcium Carbonate [Tums Extra Strength] 1,000 mg CHEW BEDTIME 01/26/19 [History] Fluticasone/Vilanterol [Breo Ellipta 200-25 MCG Inhalation Kit] 1 inhalation INH DAILY 01/26/19 [History] Multivitamin [Multivitamins] 1 tab PO BID 01/26/19 [History] Sodium Chloride [Saline Nasal Taylor] 1 spray NASBOTH ASDIRECTED PRN 01/26/19 [History] Lenalidomide [Revlimid] 5 mg PO DAILY 05/04/21 [History] Past Medical History HEENT History: Reports: Impaired Vision Other HEENT History: wears glasses Cardiovascular History: Reports: Afib, Blood Clots/VTE/DVT, Cardiomyopathy, Hypertension Other Cardiovascular History: hx DVT to lower extremity Respiratory History: Reports: Pneumonia, Recurrent Other Respiratory History: SOB after 2 blocks, denies diagnosis of asthma or COPD Gastrointestinal History: Reports: GERD Genitourinary History: Reports: Renal Disease, Other (See Below) Other Genitourinary History: end stage renal disease, on dialysis mon-wed-[id number] Musculoskeletal History: Reports: None Neurological History: Reports: None Psychiatric History: Reports: None Endocrine/Metabolic History: Reports: Obesity/BMI 30+ Hematologic History: Reports: Anticoagulation Therapy, Blood Transfusion(s) Immunologic History: Reports: Immunosuppression Oncologic (Cancer) History: Reports: Non-Hodgkin's Lymphoma Dermatologic History: Reports: Other (See Below) Other Dermatologic History: hx shingles - Infectious Disease History Infectious Disease History: Reports: Chicken Pox - Past Surgical History Head Surgeries/Procedures: Reports: None HEENT Surgical History: Reports: Tonsillectomy Cardiovascular Surgical History: Reports: None Respiratory Surgical History: Reports: None GI Surgical History: Reports: Appendectomy Male Surgical History: Reports: Other (See Below) Other Male Surgeries/Procedures: dyalisis port, shunt for dialysis to Left arm Endocrine Surgical History: Reports: None Neurological Surgical History: Reports: None Musculoskeletal Surgical History: Reports: None Oncologic Surgical History: Reports: Other (See Below) Other Oncologic Surgeries/Procedures: rt karo cath placement, hx stem cell transplant Dermatological Surgical History: Reports: None Social & Family History - Family History Family Medical History: No Pertinent Family History - Caffeine Use Caffeine Use: Reports: None - Recreational Drug Use Recreational Drug Use: No ED ROS GENERAL - Review of Systems Review Of Systems: Comprehensive ROS is negative, except as noted in HPI. ED EXAM, GENERAL - Physical Exam Exam: See Below (see dictation) Course - Vital Signs Last Recorded V/S: Last Vital Signs Temp 96.5 F L 05/04/21 09:37 Pulse 102 H 05/04/21 11:46 Resp 20 05/04/21 11:46 BP 142/87 H 05/04/21 11:46 Pulse Ox 94 L 05/04/21 11:46 - Orders/Labs/Meds Orders: Active Orders 24 hr Category Date Time Status RT Aerosol Therapy [RC] ASDIRECTED Care 05/04/21 10:40 Active Heparin Sodium [Heparin Lock Flush 100 Units/ML] Med 05/04/21 15:18 Active 500 units FLUSH ASDIRECTED PRN Sodium Chloride 0.9% [Saline Flush] Med 05/04/21 10:06 Active 10 ml FLUSH ASDIRECTED PRN Sodium Chloride 0.9% [Saline Flush] Med 05/04/21 10:06 Active 2.5 ml FLUSH ASDIRECTED PRN Saline Lock Insert [OM.PC] Stat Oth 05/04/21 10:06 Ordered Medication Orders Heparin Sodium (Porcine) (Heparin Sodium 100 Units/Ml 5 Ml Syringe) 500 units FLUSH ASDIRECTED PRN PRN Reason: Port Flush Last Admin: 05/04/21 15:28 Dose: 500 units Documented by: Sodium Chloride (Sodium Chloride 0.9% 10 Ml Syringe) 10 ml FLUSH ASDIRECTED PRN PRN Reason: Keep Vein Open Last Admin: 05/04/21 13:02 Dose: 10 ml Documented by: SNEHA Sodium Chloride (Sodium Chloride 0.9% 2.5 Ml Syringe) 2.5 ml FLUSH ASDIRECTED PRN PRN Reason: Keep Vein Open Last Admin: 05/04/21 13:02 Dose: 2.5 ml Documented by: SNEHA Labs: Laboratory Tests 05/04/21 05/04/21 05/04/21 Range/Units 12:20 12:20 12:20 WBC 5.95 (4.0-11.0) K/uL RBC 3.05 L (4.50-5.90) M/uL Hgb 10.2 L (13.0-17.0) g/dL Hct 31.4 L (38.0-50.0) % MCV 103.0 H (80.0-98.0) fL MCH 33.4 H (27.0-32.0) pg MCHC 32.5 (31.0-37.0) g/dL RDW Std Deviation 67.8 H (28.0-62.0) fl RDW Coeff of Landry 18 H (11.0-15.0) % Plt Count 99 L (150-400) K/uL MPV 11.00 (7.40-12.00) fL Neut % (Auto) 88.8 H (48.0-80.0) % Lymph % (Auto) 3.9 L (16.0-40.0) % [place] % (Auto) 6.1 (0.0-15.0) % Eos % (Auto) 1.0 (0.0-7.0) % Baso % (Auto) 0.2 (0.0-1.5) % Neut # (Auto) 5.3 (1.4-5.7) K/uL Lymph # (Auto) 0.2 L (0.6-2.4) K/uL [place] # (Auto) 0.4 (0.0-0.8) K/uL Eos # (Auto) 0.1 (0.0-0.7) K/uL Baso # (Auto) 0.0 (0.0-0.1) K/uL Nucleated RBC % 0.0 /100WBC Nucleated RBCs # 0 K/uL INR 1.84 Sodium 140 (136-148) mmol/L Potassium 5.0 (3.5-5.1) mmol/L Chloride 103 (98-107) mmol/L Carbon Dioxide 27.6 (21.0-32.0) mmol/L BUN 39 H (7.0-18.0) mg/dL Creatinine 7.8 H (0.8-1.3) mg/dL Est Cr Clr Drug Dosing 7.61 mL/min Estimated GFR (MDRD) 6.8 ml/min Glucose 98 (74-106) mg/dL Calcium 9.0 (8.5-10.1) mg/dL Phosphorus (2.6-4.7) mg/dL Magnesium (1.8-2.4) mg/dL Total Bilirubin 0.7 (0.2-1.0) mg/dL AST 13 L (15-37) IU/L ALT 15 (14-63) IU/L Alkaline Phosphatase 99 (46-116) U/L Troponin I < 0.050 (0.000-0.056) ng/mL B-Natriuretic Peptide (<100) PG/ML Total Protein 7.1 (6.4-8.2) g/dL Albumin 3.2 L (3.4-5.0) g/dL Globulin 3.9 (2.6-4.0) g/dL Albumin/Globulin Ratio 0.8 L (0.9-1.6) Influenza Type A RNA (NEGATIVE) Influenza Type B RNA (NEGATIVE) SARS-CoV-2 RNA (STEVE) (NEGATIVE) 05/04/21 05/04/21 05/04/21 Range/Units 12:20 12:20 13:57 WBC (4.0-11.0) K/uL RBC (4.50-5.90) M/uL Hgb (13.0-17.0) g/dL Hct (38.0-50.0) % MCV (80.0-98.0) fL MCH (27.0-32.0) pg MCHC (31.0-37.0) g/dL RDW Std Deviation (28.0-62.0) fl RDW Coeff of Landry (11.0-15.0) % Plt Count (150-400) K/uL MPV (7.40-12.00) fL Neut % (Auto) (48.0-80.0) % Lymph % (Auto) (16.0-40.0) % [place] % (Auto) (0.0-15.0) % Eos % (Auto) (0.0-7.0) % Baso % (Auto) (0.0-1.5) % Neut # (Auto) (1.4-5.7) K/uL Lymph # (Auto) (0.6-2.4) K/uL [place] # (Auto) (0.0-0.8) K/uL Eos # (Auto) (0.0-0.7) K/uL Baso # (Auto) (0.0-0.1) K/uL Nucleated RBC % /100WBC Nucleated RBCs # K/uL INR Sodium (136-148) mmol/L Potassium (3.5-5.1) mmol/L Chloride (98-107) mmol/L Carbon Dioxide (21.0-32.0) mmol/L BUN (7.0-18.0) mg/dL Creatinine (0.8-1.3) mg/dL Est Cr Clr Drug Dosing mL/min Estimated GFR (MDRD) ml/min Glucose (74-106) mg/dL Calcium (8.5-10.1) mg/dL Phosphorus 3.2 (2.6-4.7) mg/dL Magnesium 2.0 (1.8-2.4) mg/dL Total Bilirubin (0.2-1.0) mg/dL AST (15-37) IU/L ALT (14-63) IU/L Alkaline Phosphatase (46-116) U/L Troponin I (0.000-0.056) ng/mL B-Natriuretic Peptide 2299 H (<100) PG/ML Total Protein (6.4-8.2) g/dL Albumin (3.4-5.0) g/dL Globulin (2.6-4.0) g/dL Albumin/Globulin Ratio (0.9-1.6) Influenza Type A RNA NEGATIVE (NEGATIVE) Influenza Type B RNA NEGATIVE (NEGATIVE) SARS-CoV-2 RNA (STEVE) NEGATIVE (NEGATIVE) Meds: Medications Generic Name Dose Route Start Last Admin Trade Name Freq PRN Reason Stop Dose Admin Heparin Sodium (Porcine) 500 units 05/04/21 15:18 05/04/21 15:28 Heparin Sodium 100 Units/Ml 5 Ml Syringe FLUSH 500 units ASDIRECTED PRN Administration Port Flush Sodium Chloride 10 ml 05/04/21 10:06 05/04/21 13:02 Sodium Chloride 0.9% 10 Ml Syringe FLUSH 10 ml ASDIRECTED PRN Administration Keep Vein Open Sodium Chloride 2.5 ml 05/04/21 10:06 05/04/21 13:02 Sodium Chloride 0.9% 2.5 Ml Syringe FLUSH 2.5 ml ASDIRECTED PRN Administration Keep Vein Open Discontinued Medications Generic Name Dose Route Start Last Admin Trade Name Freq PRN Reason Stop Dose Admin Albuterol/Ipratropium 6 ml 05/04/21 13:15 05/04/21 13:20 Albuterol/Ipratropium 3.0-0.5 Mg/3 Ml Neb Soln NEB 05/04/21 13:16 6 ml ONETIME ONE Administration Methylprednisolone Sodium Succinate 125 mg 05/04/21 13:15 05/04/21 13:20 Methylprednisolone Sodium Succinate 125 Mg/2 Ml Sdv IVPUSH 05/04/21 13:16 125 mg ONETIME ONE Administration Departure - Departure Time of Disposition: 15:05 Disposition: Home, Self-Care 01 Clinical Impression: Pleural effusion, Subtherapeutic anticoagulation, Macrocytic anemia, Thrombocytopenia Congestive heart failure Qualifiers: Heart failure type: unspecified Heart failure chronicity: unspecified Qualified Code(s): I50.9 - Heart failure, unspecified - Discharge Information Instructions: Heart Failure, Self Care, Supporting Someone With Heart Failure, Heart Failure, Diagnosis, [id number] Referrals: Ubaldo Acosta MD [Primary Care Provider] - Forms: ED Department Discharge Additional Instructions: The following information is given to patients seen in the emergency department who are being discharged to home. This information is to outline your options for follow-up care. We provide all patients seen in our emergency department with a follow-up referral. The need for follow-up, as well as the timing and circumstances, are variable depending upon the specifics of your emergency department visit. If you don't have a primary care physician on staff, we will provide you with a referral. We always advise you to contact your personal physician following an emergency department visit to inform them of the circumstance of the visit and for follow-up with them and/or the need for any referrals to a consulting specialist. The emergency department will also refer you to a specialist when appropriate. This referral assures that you have the opportunity for follow-up care with a specialist. All of these measure are taken in an effort to provide you with optimal care, which includes your follow-up. Under all circumstances we always encourage you to contact your private physician who remains a resource for coordinating your care. When calling for follow-up care, please make the office aware that this follow-up is from your recent emergency room visit. If for any reason you are refused follow-up, please contact the [facility] at and asked to speak to the emergency department charge nurse. [facility] [address] [place] [address] [place] [address] 1. Go to dialysis tomorrow morning as scheduled and as discussed. Take 1 extra dose of Warfarin today and have your INR rechecked closely with your primary care provider as discussed. 2. You can discuss possible thoracentesis with your primary care provider and oncologist to remove the pleural effusions (fluid) built up in your lungs as discussed. Follow-up with your primary care provider and oncologist as discussed. 3. Return to the ED as needed and as discussed. Sepsis Event Note (ED) - Evaluation Sepsis Screening Result: No Definite Risk - Focused Exam Vital Signs: Vital Signs Temp Pulse Resp BP Pulse Ox 05/04/21 11:46 102 H 20 142/87 H 94 L 05/04/21 09:37 96.5 F L 88 19 142/98 H 95 - My Orders Last 24 Hours: My Active Orders 05/04/21 10:06 Sodium Chloride 0.9% [Saline Flush] 10 ml FLUSH ASDIRECTED PRN Sodium Chloride 0.9% [Saline Flush] 2.5 ml FLUSH ASDIRECTED PRN Saline Lock Insert [OM.PC] Stat 05/04/21 10:40 RT Aerosol Therapy [RC] ASDIRECTED 05/04/21 15:18 Heparin Sodium [Heparin Lock Flush 100 Units/ML] 500 units FLUSH ASDIRECTED PRN - Assessment/Plan Last 24 Hours: My Active Orders 05/04/21 10:06 Sodium Chloride 0.9% [Saline Flush] 10 ml FLUSH ASDIRECTED PRN Sodium Chloride 0.9% [Saline Flush] 2.5 ml FLUSH ASDIRECTED PRN Saline Lock Insert [OM.PC] Stat 05/04/21 10:40 RT Aerosol Therapy [RC] ASDIRECTED 05/04/21 15:18 Heparin Sodium [Heparin Lock Flush 100 Units/ML] 500 units FLUSH ASDIRECTED PRN
[2021-05-04 12:50] LABS: BLOOD UREA NITROGEN,BUN 39 mg/dL (7.0-18.0); CHLORIDE,CL 103 mmol/L (98-107); GLUCOSE RANDOM 98 mg/dL (74-106); SODIUM,NA 140 mmol/L (136-148)
[2021-05-04 12:57] LABS: CARBON DIOXIDE,CO2 27.6 mmol/L (21.0-32.0)
--- NOTE | 2021-05-04 14:37 | CT ---
INDICATION: Shortness of breath and hypoxia. History of DVT. History of head neck cancer and lymphoma. TECHNIQUE: CT chest PE was acquired with 40 cc Isovue 370 IV contrast. COMPARISON: April 21, 2021. FINDINGS: Heart and vasculature: Contrast opacification of the pulmonary arterial tree is adequate. No sign of pulmonary embolism. Mild cardiomegaly with particular dilatation of the left ventricle. Lungs and pleural: Large right-sided pleural effusion and moderate left-sided pleural effusion are unchanged in size. Moderate atelectasis. No acute infiltrate or suspicious nodule. No pneumothorax. Lymph nodes/mediastinum: No mediastinal, hilar, or axillary adenopathy. Chest wall: No masses. Upper abdomen: The kidneys appear severely atrophic but are incompletely imaged. Bones: Unremarkable for age. IMPRESSION: 1. No changes from the prior exam. 2. No pulmonary embolism. 3. Stable bilateral pleural effusions. No convincing evidence for pneumonia. Please note that all CT scans at this facility use dose modulation, iterative reconstruction, and/or weight-based dosing when appropriate to reduce radiation dose to as low as reasonably achievable. Dictated by Connor Esteves MD @ 05/04/2021 2:37:02 PM (Electronically Signed)
[2021-05-04 14:47] LABS: CORONAVIRUS COVID-19 NAA NEGATIVE (NEGATIVE); INFLUENZA A NAA NEGATIVE (NEGATIVE); INFLUENZA B NAA NEGATIVE (NEGATIVE)
[2021-05-04 16:06] VITALS: BP 165/93; PULSE 112
[2021-05-04] MEDS ORDERED: Iopamidol 755 MG/ML 500 ML Multipack Bottle IVPUSH ONE (17:38)
== END 2021-05-04 15:40 | disposition home or self-care (01) ==
LOC: MW.ED 09:03
DX: I13.2 Hypertensive heart and chronic kidney disease with heart failure and with stage 5 chronic kidney disease, or end stage renal disease (principal); I50.9 Heart failure, unspecified; N18.6 End stage renal disease; Z99.2 Dependence on renal dialysis; I48.91 Unspecified atrial fibrillation; D53.9 Nutritional anemia, unspecified; D69.6 Thrombocytopenia, unspecified; D68.9 Coagulation defect, unspecified; Z79.01 Long term (current) use of anticoagulants; Z88.8 Allergy status to other drugs, medicaments and biological substances; K21.9 Gastro-esophageal reflux disease without esophagitis; Z86.718 Personal history of other venous thrombosis and embolism; E66.9 Obesity, unspecified; Z79.899 Other long term (current) drug therapy; Z20.822 Contact with and (suspected) exposure to COVID-19
CPT/HCPCS: 0240U; 71045; 71275; 80053; 83735; 83880; 84100; 84484; 85025; 85610; 93005; 96374; 99285; J1642; J2930; Q9967; J7620-GY

== ENCOUNTER 2021-05-11 22:25 | Emergency (ER) | payer MEDICARE, BC ==
[2021-05-11 22:39] VITALS: BP 129/70
[2021-05-11] MEDS ORDERED: Sodium Chloride 0.9% 2.5 ML Syringe FLUSH PRN (22:42)
[2021-05-11] MEDS ORDERED: Sodium Chloride 0.9% 10 ML Syringe FLUSH PRN (22:42)
--- NOTE | 2021-05-11 22:50 | EDM.PDOC ---
ED HPI GENERAL MEDICAL PROBLEM - General Chief Complaint: Respiratory Problem Stated Complaint: COUGH, DIARREHA, TROUBLE BREATHING Time Seen by Provider: 05/11/21 22:30 Source of Information: Reports: Patient History Limitations: Reports: No Limitations - History of Present Illness INITIAL COMMENTS - FREE TEXT/NARRATIVE: 71-year-old male with history of Afib on Coumadin, ESRD on HD MWF, bilateral pleural effusion on CT 7 days ago, presents with worsening shortness of breath over the past 7 days. He has dialysis scheduled for 5:30 AM in the morning. He also has right-sided thoracentesis scheduled on Wednesday, which is why he went off of Coumadin today. He is normally on 3 L home O2. He is on chemotherapy for history of non-Hodgkin's lymphoma. He does admit cough, pleurisy, chills, nonbloody diarrhea x2 tonight. He denies fever, chest pain, nausea, vomiting, abdominal pain. ROS: A 10-point review of systems, other than pertinent positives and negatives as stated per HPI, is otherwise negative Past medical history: No additional pertinent history Past Surgical history: No additional pertinent history Social history: No additional pertinent history Family history: No additional pertinent history PHYSICAL EXAM General: AOx4, GCS = 15, No distress HEENT: dry mucous membrane Neck: supple, no meningismus, no Kernig or Brudzinski Cardiac: S1S2 RRR Chest wall: Left chest wall dialysis catheter in place, nontender with no surrounding erythema. Respiratory: Diminished breath sounds to the right lung base Abdomen: Soft, nontender, no rebound or guarding, nondistended, no pulsatile mass. Back: nontender Musculoskeletal: NVI distally, no deformity Neuro: No focal deficits - Related Data Allergies Allergy/AdvReac Type Severity Reaction Status Date / Time diphenhydramine Allergy Other Verified 05/11/21 22:39 [From Benadryl] Home Meds: Home Meds Acetaminophen [Pain Relief] 500 mg PO TID PRN 10/16/13 [History] Acyclovir 400 mg PO BID 10/16/13 [History] Magnesium Oxide 800 mg PO BID 10/16/13 [History] Pregabalin [Lyrica] 50 mg PO DAILY 10/16/13 [History] Omeprazole [priLOSEC OTC] 20 mg PO DAILY 05/26/14 [History] Warfarin [Coumadin] 5 mg PO DAILY 05/26/14 [History] Cholecalciferol (Vitamin D3) [Vitamin D3] 2,000 unit PO ASDIRECTED 03/02/17 [History] Metoprolol Succinate 50 tab PO BID 09/02/18 [History] Torsemide 40 mg PO ASDIRECTED 09/02/18 [History] Calcium Carbonate [Tums Extra Strength] 1,000 mg CHEW BEDTIME 01/26/19 [History] Fluticasone/Vilanterol [Breo Ellipta 200-25 MCG Inhalation Kit] 1 inhalation INH DAILY 01/26/19 [History] Multivitamin [Multivitamins] 1 tab PO BID 01/26/19 [History] Sodium Chloride [Saline Nasal Gove] 1 spray NASBOTH ASDIRECTED PRN 01/26/19 [History] Lenalidomide [Revlimid] 5 mg PO DAILY 05/04/21 [History] Past Medical History HEENT History: Reports: Impaired Vision Other HEENT History: wears glasses Cardiovascular History: Reports: Afib, Blood Clots/VTE/DVT, Cardiomyopathy, Hypertension Other Cardiovascular History: hx DVT to lower extremity Respiratory History: Reports: Pneumonia, Recurrent Other Respiratory History: SOB after 2 blocks, denies diagnosis of asthma or COPD Gastrointestinal History: Reports: GERD Genitourinary History: Reports: Renal Disease, Other (See Below) Other Genitourinary History: end stage renal disease, on dialysis wed-wed-wed Musculoskeletal History: Reports: None Neurological History: Reports: None Psychiatric History: Reports: None Endocrine/Metabolic History: Reports: Obesity/BMI 30+ Hematologic History: Reports: Anticoagulation Therapy, Blood Transfusion(s) Immunologic History: Reports: Immunosuppression Oncologic (Cancer) History: Reports: Non-Hodgkin's Lymphoma Dermatologic History: Reports: Other (See Below) Other Dermatologic History: hx shingles - Infectious Disease History Infectious Disease History: Reports: Chicken Pox - Past Surgical History Head Surgeries/Procedures: Reports: None HEENT Surgical History: Reports: Tonsillectomy Cardiovascular Surgical History: Reports: None Respiratory Surgical History: Reports: None GI Surgical History: Reports: Appendectomy Male Surgical History: Reports: Other (See Below) Other Male Surgeries/Procedures: dyalisis port, shunt for dialysis to Left arm Endocrine Surgical History: Reports: None Neurological Surgical History: Reports: None Musculoskeletal Surgical History: Reports: None Oncologic Surgical History: Reports: Other (See Below) Other Oncologic Surgeries/Procedures: rt karo cath placement, hx stem cell transplant Dermatological Surgical History: Reports: None Social & Family History - Family History Family Medical History: No Pertinent Family History - Tobacco Use Second Hand Smoke Exposure: No - Caffeine Use Caffeine Use: Reports: None - Recreational Drug Use Recreational Drug Use: No ED ROS GENERAL - Review of Systems Review Of Systems: See Below (see dictation) ED EXAM, GENERAL - Physical Exam Exam: See Below (see dictation) #1 Interpretation EKG Interpretation Comments: Heart rate = 109 bpm, atrial fibrillation, TWi on V5-V6, normal QRS interval, no STEMI. EKG and rhythm strip interpreted by me at 2236 Course - Vital Signs Last Recorded V/S: Last Vital Signs Temp 97.6 F 05/11/21 22:35 Pulse 97 05/12/21 01:59 Resp 20 05/12/21 01:59 BP 129/70 05/12/21 01:59 Pulse Ox 93 L 05/12/21 01:59 - Orders/Labs/Meds Orders: Active Orders 24 hr Category Date Time Status Cardiac Monitoring [RC] . DIRECTED Care 05/11/21 22:42 Active Pulse Oximetry [RC] ASDIRECTED Care 05/11/21 22:42 Active B-TYPE NATRIURETIC PEPTIDE,BNP [CHEM] Stat Lab 05/11/21 23:37 Received Sodium Chloride 0.9% [Saline Flush] Med 05/11/21 22:42 Active 10 ml FLUSH ASDIRECTED PRN Sodium Chloride 0.9% [Saline Flush] Med 05/11/21 22:42 Active 2.5 ml FLUSH ASDIRECTED PRN Pulse Oximetry Continuous Monitoring [OM.PC] CONTINUOUS Oth 05/11/21 22:45 Ordered Saline Lock Insert [OM.PC] Stat Oth 05/11/21 22:42 Ordered Medication Orders Sodium Chloride (Sodium Chloride 0.9% 10 Ml Syringe) 10 ml FLUSH ASDIRECTED PRN PRN Reason: Keep Vein Open Last Admin: 05/12/21 00:05 Dose: 10 ml Documented by: JAVID Sodium Chloride (Sodium Chloride 0.9% 2.5 Ml Syringe) 2.5 ml FLUSH ASDIRECTED PRN PRN Reason: Keep Vein Open Last Admin: 05/12/21 00:05 Dose: 2.5 ml Documented by: JAVID Labs: Laboratory Tests 05/11/21 05/11/21 05/11/21 Range/Units 22:50 23:37 23:37 WBC 8.54 (4.0-11.0) K/uL RBC 3.06 L (4.50-5.90) M/uL Hgb 10.1 L (13.0-17.0) g/dL Hct 31.6 L (38.0-50.0) % MCV 103.3 H (80.0-98.0) fL MCH 33.0 H (27.0-32.0) pg MCHC 32.0 (31.0-37.0) g/dL RDW Std Deviation 67.7 H (28.0-62.0) fl RDW Coeff of Landry 18 H (11.0-15.0) % Plt Count 84 L (150-400) K/uL MPV 12.20 H (7.40-12.00) fL Add Manual Diff YES Neutrophils % (Manual) 88 H (48.0-80.0) % Band Neutrophils % 10 % Lymphocytes % (Manual) 2 L (16.0-40.0) % Nucleated RBC % 0.0 /100WBC Absolute Seg Neuts 7.5 H (1.4-5.7) Band Neutrophils # 0.9 Lymphocytes # (Manual) 0.2 L (0.6-2.4) Nucleated RBCs # 0 K/uL INR APTT (18.6-31.3) SEC Sodium 138 (136-148) mmol/L Potassium 5.0 (3.5-5.1) mmol/L Chloride 102 (98-107) mmol/L Carbon Dioxide 27.2 (21.0-32.0) mmol/L BUN 49 H (7.0-18.0) mg/dL Creatinine 8.5 H (0.8-1.3) mg/dL Est Cr Clr Drug Dosing 6.98 mL/min Estimated GFR (MDRD) 6.2 ml/min Glucose 144 H (74-106) mg/dL Calcium 8.6 (8.5-10.1) mg/dL Phosphorus 2.2 L (2.6-4.7) mg/dL Magnesium 1.9 (1.8-2.4) mg/dL Total Bilirubin 0.6 (0.2-1.0) mg/dL AST 16 (15-37) IU/L ALT 17 (14-63) IU/L Alkaline Phosphatase 81 (46-116) U/L Troponin I < 0.050 (0.000-0.056) ng/mL Total Protein 6.4 (6.4-8.2) g/dL Albumin 3.0 L (3.4-5.0) g/dL Globulin 3.4 (2.6-4.0) g/dL Albumin/Globulin Ratio 0.9 (0.9-1.6) SARS-CoV-2 RNA (STEVE) NEGATIVE (NEGATIVE) 05/11/21 Range/Units 23:37 WBC (4.0-11.0) K/uL RBC (4.50-5.90) M/uL Hgb (13.0-17.0) g/dL Hct (38.0-50.0) % MCV (80.0-98.0) fL MCH (27.0-32.0) pg MCHC (31.0-37.0) g/dL RDW Std Deviation (28.0-62.0) fl RDW Coeff of Landry (11.0-15.0) % Plt Count (150-400) K/uL MPV (7.40-12.00) fL Add Manual Diff Neutrophils % (Manual) (48.0-80.0) % Band Neutrophils % % Lymphocytes % (Manual) (16.0-40.0) % Nucleated RBC % /100WBC Absolute Seg Neuts (1.4-5.7) Band Neutrophils # Lymphocytes # (Manual) (0.6-2.4) Nucleated RBCs # K/uL INR 2.17 APTT 31.1 (18.6-31.3) SEC Sodium (136-148) mmol/L Potassium (3.5-5.1) mmol/L Chloride (98-107) mmol/L Carbon Dioxide (21.0-32.0) mmol/L BUN (7.0-18.0) mg/dL Creatinine (0.8-1.3) mg/dL Est Cr Clr Drug Dosing mL/min Estimated GFR (MDRD) ml/min Glucose (74-106) mg/dL Calcium (8.5-10.1) mg/dL Phosphorus (2.6-4.7) mg/dL Magnesium (1.8-2.4) mg/dL Total Bilirubin (0.2-1.0) mg/dL AST (15-37) IU/L ALT (14-63) IU/L Alkaline Phosphatase (46-116) U/L Troponin I (0.000-0.056) ng/mL Total Protein (6.4-8.2) g/dL Albumin (3.4-5.0) g/dL Globulin (2.6-4.0) g/dL Albumin/Globulin Ratio (0.9-1.6) SARS-CoV-2 RNA (STEVE) (NEGATIVE) Meds: Medications Generic Name Dose Route Start Last Admin Trade Name Freq PRN Reason Stop Dose Admin Sodium Chloride 10 ml 05/11/21 22:42 05/12/21 00:05 Sodium Chloride 0.9% 10 Ml Syringe FLUSH 10 ml ASDIRECTED PRN Administration Keep Vein Open Sodium Chloride 2.5 ml 05/11/21 22:42 05/12/21 00:05 Sodium Chloride 0.9% 2.5 Ml Syringe FLUSH 2.5 ml ASDIRECTED PRN Administration Keep Vein Open - Re-Assessments/Exams Free Text/Narrative Re-Assessment/Exam: 05/12/21 02:16 I walked the patient on 3L NC, he maintained sats at 93%, he is stable for discharge. He has dialysis scheduled in the morning and thoracentesis the following day for his pleural effusion. He exhibits normal vital signs. I advised the patient to return to the ER for reevaluation if symptoms worsened, including fever, worsening dyspnea, or any other worrisome symptoms. I instructed the patient to follow up with dialysis in the morning and thoracentesis on Wednesday. MEDICAL DECISION MAKING: This patient was evaluated during the COVID-19 pandemic where resources and capacity might be affected. I reviewed the patients past medical records, lab and radiographic findings. I discussed the case with the patient. My differential diagnosis included: Pleural effusion, fluid overload, CHF exacerbation. Patient had a negative CT angio chest for pulmonary embolism recently, I do not suspect symptoms today to be secondary to new pulmonary embolism needing another CT angio chest. CT chest does demonstrate large pleural effusion, but he has thoracentesis scheduled on Wednesday. He is due for dialysis in the morning. He maintains normal saturation on his 3 L nasal cannula, I suspect he is stable for discharge with strict return precautions for worsening dyspnea or hypoxia or work of breathing. Departure - Departure Time of Disposition: 02:19 Disposition: Home, Self-Care 01 Condition: Good Clinical Impression: End stage renal disease, Pleural effusion, Dyspnea, Supplemental oxygen dependent Congestive heart failure Qualifiers: Heart failure type: unspecified Heart failure chronicity: unspecified Qualified Code(s): I50.9 - Heart failure, unspecified - Discharge Information *PRESCRIPTION DRUG MONITORING PROGRAM REVIEWED*: Not Applicable *COPY OF PRESCRIPTION DRUG MONITORING REPORT IN PATIENT BETH: Not Applicable Instructions: Shortness of Breath, Adult, Hcpd-up-Pysm, Heart Failure, Self- Care, Quut-mi-Snof, Heart Failure Action Plan, Pleural Effusion Referrals: Ubaldo Acosta MD [Primary Care Provider] - 3 Days Forms: ED Department Discharge Additional Instructions: The need for follow-up, as well as the timing and circumstances, are variable depending upon the specifics of your emergency department visit. If you don't have a primary care physician on staff, we will provide you with a referral. We always advise you to contact your personal physician following an emergency department visit to inform them of the circumstance of the visit and for follow-up with them and/or the need for any referrals to a consulting specialist. The emergency department will also refer you to a specialist when appropriate. This referral assures that you have the opportunity for follow-up care with a specialist. All of these measure are taken in an effort to provide you with optimal care, which includes your follow-up. Under all circumstances we always encourage you to contact your private physician who remains a resource for coordinating your care. When calling for follow-up care, please make the office aware that this follow-up is from your recent emergency room visit. If for any reason you are refused follow-up, please contact the [facility] Emergency Department at and asked to speak to the emergency department charge nurse. If you do not have a primary care doctor, please follow up with the clinics below within 3-5 days. [facility] - Primary [facility] [address] [place] [id number] [facility] [address] [place] [id number] Sepsis Event Note (ED) - Evaluation Sepsis Screening Result: No Definite Risk - Focused Exam Vital Signs: Vital Signs Temp Pulse Resp BP Pulse Ox 05/12/21 01:59 97 20 129/70 93 L 05/11/21 22:35 97.6 F 80 22 H 129/70 80 L - My Orders Last 24 Hours: My Active Orders 05/11/21 22:42 Cardiac Monitoring [RC] . DIRECTED Pulse Oximetry [RC] ASDIRECTED Sodium Chloride 0.9% [Saline Flush] 10 ml FLUSH ASDIRECTED PRN Sodium Chloride 0.9% [Saline Flush] 2.5 ml FLUSH ASDIRECTED PRN Saline Lock Insert [OM.PC] Stat 05/11/21 22:45 Pulse Oximetry Continuous Monitoring [OM.PC] CONTINUOUS 05/11/21 23:37 B-TYPE NATRIURETIC PEPTIDE,BNP [CHEM] Stat - Assessment/Plan Last 24 Hours: My Active Orders 05/11/21 22:42 Cardiac Monitoring [RC] . DIRECTED Pulse Oximetry [RC] ASDIRECTED Sodium Chloride 0.9% [Saline Flush] 10 ml FLUSH ASDIRECTED PRN Sodium Chloride 0.9% [Saline Flush] 2.5 ml FLUSH ASDIRECTED PRN Saline Lock Insert [OM.PC] Stat 05/11/21 22:45 Pulse Oximetry Continuous Monitoring [OM.PC] CONTINUOUS 05/11/21 23:37 B-TYPE NATRIURETIC PEPTIDE,BNP [CHEM] Stat
[2021-05-12 00:12] LABS: BLOOD UREA NITROGEN,BUN 49 mg/dL (7.0-18.0); CARBON DIOXIDE,CO2 27.2 mmol/L (21.0-32.0); CHLORIDE,CL 102 mmol/L (98-107); GLUCOSE RANDOM 144 mg/dL (74-106); SODIUM,NA 138 mmol/L (136-148)
--- NOTE | 2021-05-12 01:16 | CT ---
INDICATION: Shortness of breath, congestion TECHNIQUE: CT chest without i.v. contrast. Coronal and sagittal reformats were obtained. COMPARISON: None FINDINGS: The sensitivity and specificity of the exam are moderately limited by artifacts from the patient`s inability to maintain a breath hold. Cardiovascular: Mild anemia is present with the cardiac chambers appearing lucent with respect to the myocardium. The pulmonary arteries are unremarkable in appearance. No sign of aneurysm seen in the thoracic aorta. The presence of aortic dissection cannot be evaluated without the use of intravenous contrast. Moderate atherosclerotic calcifications are noted in the coronary arteries. A central venous catheter is noted within a persistent left SVC. A right Port-A-Cath is present with the tip in the right SVC. Mediastinum: No mass or adenopathy seen. Lung: Mild diffuse ground-glass infiltrates are present with bibasilar discoid and compressive atelectasis seen. Pleura and pericardium: Symmetric, large bilateral pleural effusions are present. No significant pericardial effusion is present. Chest wall and axilla: No mass or adenopathy seen. Bone: Unremarkable for age. Upper abdomen: Moderate atrophy of bilateral kidneys are partially visualized. There are low-density lesions in both kidneys are partially visualized measuring up to 1.5 cm. These are incompletely characterized without the use of intravenous contrast. IMPRESSIONS: 1. Symmetric, large bilateral pleural effusions are present. 2. Mild diffuse ground-glass infiltrates are present with bibasilar discoid and compressive atelectasis seen. Clinical correlation is recommended to exclude pulmonary edema. Dictated by Romel Rodriguez MD @ 05/12/2021 1:13:15 AM Please note that all CT scans at this facility use dose modulation, iterative reconstruction, and/or weight-based dosing when appropriate to reduce radiation dose to as low as reasonably achievable. Dictated by: Romel Rodriguez MD @ 05/12/2021 01:13:57 (Electronically Signed)
[2021-05-12 02:31] VITALS: PULSE 118
[2021-05-12] MEDS ORDERED: Loperamide 2 MG Cap PO PRN (02:38)
== END 2021-05-12 02:45 | disposition home or self-care (01) ==
LOC: MW.ED 22:25
DX: J90 Pleural effusion, not elsewhere classified (principal); R06.02 Shortness of breath; I48.91 Unspecified atrial fibrillation; I13.2 Hypertensive heart and chronic kidney disease with heart failure and with stage 5 chronic kidney disease, or end stage renal disease; N18.6 End stage renal disease; I50.9 Heart failure, unspecified; K21.9 Gastro-esophageal reflux disease without esophagitis; J44.9 Chronic obstructive pulmonary disease, unspecified; E66.9 Obesity, unspecified; Z68.30 Body mass index [BMI] 30.0-30.9, adult; Z88.8 Allergy status to other drugs, medicaments and biological substances; Z79.01 Long term (current) use of anticoagulants; Z79.899 Other long term (current) drug therapy; Z99.2 Dependence on renal dialysis; Z86.718 Personal history of other venous thrombosis and embolism; Z20.822 Contact with and (suspected) exposure to COVID-19; Z99.81 Dependence on supplemental oxygen
CPT/HCPCS: 36415; 71250; 80053; 83735; 83880; 84100; 84484; 85025; 85610; 85730; 93005; 99285; U0002

== ENCOUNTER 2021-12-18 03:50 | Emergency (ER) | payer MEDICARE, BC | END 2021-12-18 03:59 | disposition left against medical advice (07) | LOC: MW.ED 03:50 | DX: R06.02 Shortness of breath (principal); I10 Essential (primary) hypertension; E66.9 Obesity, unspecified; Z68.30 Body mass index [BMI] 30.0-30.9, adult; Z88.8 Allergy status to other drugs, medicaments and biological substances; Z79.899 Other long term (current) drug therapy; Z79.01 Long term (current) use of anticoagulants; Z90.49 Acquired absence of other specified parts of digestive tract | CPT/HCPCS: 99282; 99283 ==

== ENCOUNTER 2022-01-02 11:46 | Emergency (ER) | payer MEDICARE, BC ==
[2022-01-02 12:22] LABS: BLOOD UREA NITROGEN,BUN 15 mg/dL (7.0-18.0); CARBON DIOXIDE,CO2 25.9 mmol/L (21.0-32.0); CHLORIDE,CL 102 mmol/L (98-107); ESTIMATED GFR 22 mL/min (>60); GLUCOSE RANDOM 88 mg/dL (74-106); POTASSIUM,K 3.5 mmol/L (3.5-5.1); SODIUM,NA 138 mmol/L (136-148)
[2022-01-02] MEDS ORDERED: Enoxaparin 100 MG/1 ML Syringe SUBCUT STA (13:33)
[2022-01-02 18:09] VITALS: BP 114/52; PULSE 97
== END 2022-01-02 15:20 ==
LOC: MW.ED 11:46
DX: R06.02 Shortness of breath (principal); N19 Unspecified kidney failure; D61.818 Other pancytopenia; I10 Essential (primary) hypertension; E66.9 Obesity, unspecified; Z68.21 Body mass index [BMI] 21.0-21.9, adult; Z20.822 Contact with and (suspected) exposure to COVID-19; Z88.8 Allergy status to other drugs, medicaments and biological substances; Z79.899 Other long term (current) drug therapy; Z79.01 Long term (current) use of anticoagulants; Z90.49 Acquired absence of other specified parts of digestive tract
CPT/HCPCS: 36415; 36600; 71045; 80053; 82803; 83605; 83735; 83880; 84484; 85025; 85379; 85610; 87040; 93005; 96372; 99285; J1650; U0002; 93010

== ENCOUNTER 2022-02-01 22:23 | Emergency (ER) | payer MEDICARE, BC ==
[2022-02-01] MEDS ORDERED: Sodium Chloride 0.9% 1,000 ML IV ONE (22:28)
[2022-02-02 01:09] LABS: CARBON DIOXIDE,CO2 26.6 mmol/L (21.0-32.0); POTASSIUM,K 5.5 mmol/L (3.5-5.1)
[2022-02-02 04:52] VITALS: BP 89/48; PULSE 99
== END 2022-02-02 04:19 ==
LOC: MW.ED 22:23
DX: D64.9 Anemia, unspecified (principal); I10 Essential (primary) hypertension; E66.9 Obesity, unspecified; Z68.26 Body mass index [BMI] 26.0-26.9, adult; Z88.8 Allergy status to other drugs, medicaments and biological substances; Z79.899 Other long term (current) drug therapy; Z90.49 Acquired absence of other specified parts of digestive tract; Z20.822 Contact with and (suspected) exposure to COVID-19
CPT/HCPCS: 36415; 36430; 71045; 80053; 82803; 83605; 83735; 84484; 85025; 85610; 85730; 86850; 86900; 86901; 86920; 93005; 99285; P9016; U0002

== ENCOUNTER 2022-03-26 16:10 | Emergency (ER) | payer MEDICARE, BC ==
[2022-03-26] MEDS ORDERED: Metoprolol Succinate 25 MG Tab.ER PO ONE (18:43)
[2022-03-26 19:21] LABS: CORONAVIRUS COVID-19 NAA NEGATIVE (NEGATIVE); INFLUENZA A NAA NEGATIVE (NEGATIVE); INFLUENZA B NAA NEGATIVE (NEGATIVE)
[2022-03-26 19:26] LABS: POTASSIUM,K 5.2 mmol/L (3.5-5.1)
[2022-03-26] MEDS ORDERED: Enoxaparin 100 MG/1 ML Syringe SUBCUT STA (21:12)
[2022-03-26] MEDS ORDERED: Acetaminophen 325 MG Tab PO ONE (23:09)
[2022-03-27 03:19] VITALS: BP 93/45; PULSE 102
== END 2022-03-27 03:00 ==
LOC: MW.ED 16:10
DX: I12.0 Hypertensive chronic kidney disease with stage 5 chronic kidney disease or end stage renal disease (principal); N18.6 End stage renal disease; D63.1 Anemia in chronic kidney disease; R79.89 Other specified abnormal findings of blood chemistry; I48.91 Unspecified atrial fibrillation; E66.9 Obesity, unspecified; Z68.23 Body mass index [BMI] 23.0-23.9, adult; Z88.8 Allergy status to other drugs, medicaments and biological substances; Z79.899 Other long term (current) drug therapy; Z20.822 Contact with and (suspected) exposure to COVID-19
CPT/HCPCS: 0240U; 36415; 36430; 71045; 80053; 83605; 83735; 83880; 84484; 85025; 85379; 86850; 86900; 86901; 86920; 87040; 93005; 96372; 99285; A9270; J1650; P9016

== ENCOUNTER 2022-04-21 22:24 | Emergency (ER) | payer MEDICARE, BC ==
[2022-04-22 00:06] LABS: POTASSIUM,K 3.8 mmol/L (3.5-5.1)
[2022-04-22] MEDS ORDERED: Levofloxacin 750 MG Tab PO SCH (02:00)
[2022-04-22 02:31] VITALS: BP 112/65; PULSE 98
== END 2022-04-22 02:30 | disposition home or self-care (01) ==
LOC: MW.ED 22:24
DX: J18.1 Lobar pneumonia, unspecified organism (principal); I11.9 Hypertensive heart disease without heart failure; I12.0 Hypertensive chronic kidney disease with stage 5 chronic kidney disease or end stage renal disease; N18.6 End stage renal disease; E66.9 Obesity, unspecified; K21.9 Gastro-esophageal reflux disease without esophagitis; Z20.822 Contact with and (suspected) exposure to COVID-19; Z68.23 Body mass index [BMI] 23.0-23.9, adult
CPT/HCPCS: 36415; 71045; 80053; 83605; 83880; 84484; 85025; 87040; 99285; A9270; U0002

== ENCOUNTER 2022-06-02 22:24 | Emergency (ER) | payer MEDICARE, BC ==
[2022-06-02] MEDS ORDERED: Ampicillin/Sulbactam Na 3 GM in Sodium Chloride 0.9% 100 ML IV ONE (23:21)
[2022-06-02] MEDS ORDERED: Sodium Chloride 0.9% 500 ML IV SCH (23:30)
[2022-06-02 23:52] LABS: CARBON DIOXIDE,CO2 30.2 mmol/L (21.0-32.0); POTASSIUM,K 3.9 mmol/L (3.5-5.1)
[2022-06-02] MEDS ORDERED: Magnesium Sulfate/Water 2 GM in Premix Bag 1 BAG IV ONE (23:53)
[2022-06-03 00:03] LABS: CORONAVIRUS COVID-19 NAA NEGATIVE (NEGATIVE); INFLUENZA A NAA NEGATIVE (NEGATIVE); INFLUENZA B NAA NEGATIVE (NEGATIVE); RESPIRATORY SYNCYTIAL VIR NAA NEGATIVE (NEGATIVE)
[2022-06-03] MEDS ORDERED: Ketorolac 30 MG/ML SDV IVPUSH ONE (02:01)
[2022-06-03] MEDS: Furosemide 40 MG/4 ML VIAL IVPUSH ONE ×2 (02:24→02:59)
[2022-06-03] MEDS ORDERED: Sodium Chloride 0.9% 2.5 ML Syringe FLUSH PRN (03:06)
[2022-06-03] MEDS ORDERED: Norepinephrine 4 MG in Dextrose 5% in Water 246 ML IV SCH ×6 (04:15→04:45)
[2022-06-03] MEDS ORDERED: Norepinephrine Bit/D5W Premix 250 ML ONE (04:19)
[2022-06-03] MEDS ORDERED: Norepinephrine Bit/D5W Premix 250 ML IV SCH (04:45)
[2022-06-03] MEDS ORDERED: Morphine 4 MG/ML Syringe IVPUSH ONE (06:24)
[2022-06-03] MEDS ORDERED: Ampicillin/Sulbactam Na 3 GM in Sodium Chloride 0.9% 100 ML IV ONE ×2 (10:48→11:15)
[2022-06-03] MEDS ORDERED: VANCOmycin 1.25 GM/250 ML 1.25 GM in Premix Bag 1 BAG IV ONE (11:45)
[2022-06-03 11:54] LABS: POTASSIUM,K 3.7 mmol/L (3.5-5.1)
[2022-06-03 19:47] VITALS: BP 111/65; PULSE 102
== END 2022-06-03 12:54 ==
LOC: MW.ED 22:24
DX: A41.9 Sepsis, unspecified organism (principal); I48.91 Unspecified atrial fibrillation; I12.0 Hypertensive chronic kidney disease with stage 5 chronic kidney disease or end stage renal disease; N18.6 End stage renal disease; K21.9 Gastro-esophageal reflux disease without esophagitis; E66.9 Obesity, unspecified; Z68.22 Body mass index [BMI] 22.0-22.9, adult; Z99.2 Dependence on renal dialysis; Z88.8 Allergy status to other drugs, medicaments and biological substances; Z79.899 Other long term (current) drug therapy; Z20.822 Contact with and (suspected) exposure to COVID-19
CPT/HCPCS: 0241U; 36415; 80053; 81001; 83605; 83735; 84484; 85025; 87040; 93005; 96361; 96365; 96366; 96367; 96368; 96375; 99291; J0295; J1885; J2270; J3370; J3475; J7040; J1940